=== PATIENT | female | born 1990 | race Caucasian/White ===

== ENCOUNTER 2019-07-02 13:48 | Emergency (ER) | payer BC, MEDICAID ==
[~2019-07-02] VITALS: Ht 160 cm; Wt 85.7 kg
[~2019-07-02 13:48] MED LIST: ACYC200O4 PO; ACYC400T PO; ALBU8.5H2 IH; AMOX250C PO; CEPH500C PO; FERR-57 PO; FLC150T PO; FLINTSTONE1 TAB.CHE4 PO; IBP600T1 PO; MEDR150D8 IM
--- NOTE | 2019-07-02 15:12 | Diagnostic Imaging Report ---
CLINICAL INDICATION: Patient with cough times approximately three days with bloody mucus yesterday. Exam: Chest x-ray PA and lateral views. Comparisons: None. Findings: Lungs/pleura: Lungs are clear. There is no pneumothorax. There is no pleural effusion. Mediastinum: Unremarkable. Pulmonary vasculature: Unremarkable. Heart: Unremarkable. Bones/extrathoracic soft tissue: Unremarkable. Impression: There is no radiographic evidence of acute cardiopulmonary process. Dictated by: Dictated on workstation # [id number]
--- NOTE | 2019-07-02 15:47 | ED Cough/URI ---
General Chief Complaint: Cough/Cold/Flu Symptoms Stated Complaint: COUGH,CHEST TIGHT Nursing Triage Note: Patient ambulatory to ER triage room with complaint of cough x 3 days. Patient states she coughed up small amount of blood yesterday. She is also complaining of a sore throat. She has not had a fever. Sepsis Screen: No Definite Risk Source: patient Exam Limitations: no limitations History of Present Illness Date Seen by Provider: Jul 02, 2019 Time Seen by Provider: 15:47 Initial Comments 29-year-old female patient presents with complaints of 3 day onset of cough. Patient reports coughing up a small amount of blood on her sputum yesterday 1. Does complain of a sore throat. Denies any fevers, but has had intermittent chills. Timing/Duration: other (3 day onset) Severity/Quality: sputum, blood streaked sputum (1 episode yesterday) Prior Episodes/Possible Cause: no prior episodes Modifying Factors: Improves With Coughing Allergies and Home Medications Allergies Coded Allergies: codeine (Unverified Allergy, Unknown, 07/08/11) Home Medications Ferrous Sulfate 325 Mg Tablet, 325 MG PO TID, (Reported) Ibuprofen 600 Mg Tab, 600 MG PO Q6H Prescribed by: YOEL CATALAN on 07/26/14 0607 Medroxyprogesterone Acet 150 Mg/Ml Disp.syrin, 150 MG IM Q 90DAYS, (Reported) Multivitamins W-Iron 1 Tab.chew Tab.chew, 2 TAB.CHEW PO DAILY, (Reported) Patient Home Medication List Home Medication List Reviewed: Yes Review of Systems Review of Systems Constitutional: chills; No diaphoresis, No dizziness, No fever; malaise EENTM: see HPI, hoarseness, nose congestion (green nasal drainage), throat pain; No ear discharge, No ear pain, No epistaxis, No throat swelling Respiratory: see HPI, cough; No dyspnea on exertion; phlegm; No short of breath, No stridor, No wheezing Cardiovascular: no symptoms reported Gastrointestinal: no symptoms reported Genitourinary: no symptoms reported Musculoskeletal: no symptoms reported Skin: no symptoms reported Psychiatric/Neurological: No Symptoms Reported All Other Systems Reviewed Negative Unless Noted: Yes (Negative excepted noted.) Past Ataekjf-Qcjvnc-Dcaaon Hx Past Med/Social Hx: Reviewed Nursing Past Med/Soc Hx Patient Social History Alcohol Use: Denies Use Recreational Drug Use: No Smoking Status: Never a Smoker 2nd Hand Smoke Exposure: No Recent Foreign Travel: No Contact w/Someone Who Travel: No Recent Infectious Disease Expo: No Recent Hopitalizations: No Physical Abuse: No Sexual Abuse: No Mistreated: No Fear: No Immunizations Up To Date Tetanus Booster (TDap): Unknown PED Vaccines UTD: Yes Date of Influenza Vaccine: Jun 08, 2014 Seasonal Allergies Seasonal Allergies: No Past Medical History Surgeries: No Respiratory: No Cardiac: No Neurological: No Reproductive Disorders: Yes Female Reproductive Disorders: Denies Sexually Transmitted Disease: Yes (herpes) HIV/AIDS: No Gastrointestinal: No Musculoskeletal: No Endocrine: No Cancer: No Psychosocial: No Integumentary: No Blood Disorders: No Family Medical History Reviewed Nursing Family Hx Patient reports no known family medical history. No Pertinent Family Hx Physical Exam Vital Signs - First Documented 07/02/19 14:06 Temp 36.9 Pulse 83 Resp 16 B/P (MAP) 112/71 (85) Pulse Ox 99 O2 Delivery Room Air Capillary Refill : Less Than 3 Seconds Height: 5'3" Weight: 159lbs. 6.0oz. 72.438503iz; 33.00 BMI Method: General Appearance: WD/WN, no apparent distress HEENT: PERRL/EOMI, TMs normal, pharyngeal erythema; No tonsillar exudate; other ( slight tonsillar enlargement. Positive nasal congestion. Positive hoarseness.) Neck: non-tender, full range of motion, supple, lymphadenopathy (R), lymphadenopathy (L) Respiratory: lungs clear, normal breath sounds, no respiratory distress, no accessory muscle use Cardiovascular: normal peripheral pulses, regular rate, rhythm, no edema, no murmur Extremities: no pedal edema, no calf tenderness, normal capillary refill Neurologic/Psychiatric: alert, normal mood/affect, oriented x 3 Skin: normal color, warm/dry Progress/Results/Core Measures Suspected Sepsis Recent Fever Within 48 Hours: No Infection Criteria Present: None New/Unexplained Altered Menta: No Sepsis Screen: No Definite Risk SIRS Temperature: Pulse: 83 Respiratory Rate: 16 Blood Pressure 112 /71 Mean: 85 Results/Orders My Orders Orders - JOSE IRBY PA Chest Pa/Lat (2 View) (07/02/19 14:50) Vital Signs/I&O 07/02/19 14:06 Temp 36.9 Pulse 83 Resp 16 B/P (MAP) 112/71 (85) Pulse Ox 99 O2 Delivery Room Air Capillary Refill : Less Than 3 Seconds Blood Pressure Mean: 85 POS Diagnostic Imaging Diagonstic Imaging: Xray Plain Films/CT/US/NM/MRI: chest Comments CHEST PA/LAT (2 VIEW) CLINICAL INDICATION: Patient with cough times approximately three days with bloody mucus yesterday. Exam: Chest x-ray PA and lateral views. Comparisons: None. Findings: Lungs/pleura: Lungs are clear. There is no pneumothorax. There is no pleural effusion. Mediastinum: Unremarkable. Pulmonary vasculature: Unremarkable. Heart: Unremarkable. Bones/extrathoracic soft tissue: Unremarkable. Impression: There is no radiographic evidence of acute cardiopulmonary process. Dictated on workstation # [id number] Reviewed: Reviewed by Me (radiology report reviewed by me) Departure Communication (Admissions) Patient seen and evaluated. Plan for discharge to home. Patient does request liquid antibiotics due to a history of difficulty taking pills since she was a child. Impression Primary Impression: Upper respiratory infection Qualified Codes: J06.9 - Acute upper respiratory infection, unspecified Disposition: HOME, SELF-CARE Condition: Improved Departure-Patient Inst. Decision time for Depature: 16:03 Referrals: DANYEL MARRERO APRN (PCP/Family) Primary Care Physician Patient Instructions: Bacterial Upper Respiratory Infection, Adult (DC) Add. Discharge Instructions: All discharge instructions reviewed with patient and/or family. Voiced understanding. Medications as instructed. Tylenol and ibuprofen eonf-yic-fbjvwvd as directed by the account support manager for pain. Drink plenty of fluids. Jext-uug-afwzrnc throat lozenges and sprays as needed for throat pain. Afrin nasal spray and saline nasal spray dcmj-ere-lbnctnq as needed for nasal congestion. Follow-up with your family practitioner if no improvement in symptoms. Return to the emergency department for worsened symptoms or any other concerns. Scripts Amoxicillin (Amoxicillin) 400 Mg/5 Ml Susp.recon 1000 MG PO BID for 7 Days, #120 ML 0 Refills Prov: JOSE IRBY 07/02/19 JOSE IRBY Jul 02, 2019 15:47 POS
[2019-07-02] MEDS ORDERED: AMOX400S9 PO (16:05)
[2019-07-02 16:20] VITALS: BP 112/71
--- OUTSIDE RECORDS SUMMARY | 2019-07-27 20:23 | XMS REPORT ---
Author Author Ya Brown Organization [facility] Address [address] [place] [address] Care Team Providers Care Computer Engineering Technician Name Role Phone FAHAD Brown Unavailable PROBLEMS Type Condition ICD9-CM Code HBL45-OQ Code Onset Dates Condition S tatus SNOMED Code Problem History of anemia Z86.2 Active 27 3175037 Problem Herpes simplex vulvovaginitis A60.04 Active 20927195 Problem Irregular menses N92.6 Active 801 95906 ALLERGIES No Information ENCOUNTERS Encounter Location Date Diagnosis [facility] IN [facility] [id number] [place] [address] Aug, Strep throat J02.0 [facility] [id number] [place] [address] 14 Mar, 2018 Left wrist pain M25.532 [facility] [id number] [place] [address] 06 Mar, 2018 Acute nasopharyngitis (commo n cold) J00 ; Post-nasal drip R09.82 and Sore throat J02.9 [facility] [id number] [place] [address] Jan, [facility] [id number] [place] [address] Dec, [place] [address] [address] Dec, History of anemia Z86.2 [facility] [address] [id number] [address] [place] [address] Dec, Irregular menses N92.6 and S creening examination for sexually transmitted disease Z11.3 [place] [id number] [place] [address] Dec, Irregular menses N92.6 ; His tory of anemia Z86.2 and Screening examination for sexually transmitted disease Z11.3 [facility] [place] [id number] [place] [address] November, Herpes simplex vulvovaginiti s A60.04 [place] [address] [address] November, [facility] [place] [address] [address] 07 Mar, 2017 Knee strain, right, initial encounter S86.911A [place] [address] [address] 14 Aug, 2016 Pelvic pain R10.2 [place] [address] [address] 08 Aug, 2016 Dyspareunia in female N94.10 and control counseling Z30.09 [facility] [place] [address] [address] Jun, Gastroenteritis K52.9 and Ac nora effusion of both middle ears H65.193 [place] [address] [address] Apr, Swelling of pharynx J39.2 [place] [address] [address] Jan, [place] [address] [address] Jan, [place] [address] [address] Dec, Routine gynecological examin ation Z01.419 ; Encounter for counseling regarding contraception Z30.9 and Encounter for initial prescription of contraceptive pills Z30.011 [facility] [address] [id number] [address] [place] [address], [place] [address] November, Contraceptive management V25 .9 [facility] [address] [id number] [address] [place] [address], [place] [address] 14 Oct, 2014 [facility] [address] [id number] [address] [place] [address], [place] [address] Oct, [facility] [address] [id number] [address] [place] [address], [place] [address] Aug, [facility] [address] [id number] [address] [place] [address], [place] [address] Aug, [facility] [address] [id number] [address] [place] [address], [place] [address] Jun, [facility] [address] [id number] [address] [place] [address], [place] [address] Jun, [facility] [address] [id number] [address] [place] [address], [place] [address] Jun, [facility] [address] [id number] [address] [place] [address], [place] [address] Jun, [facility] [address] [id number] [address] [place] [address], [place] [address] Jun, [facility] [address] [id number] [address] [place] [address], [place] [address] 15 Jun, 2014 [facility] [address] [id number] [address] [place] [address], [place] [address] Jun, [facility] [address] [id number] [address] [place] [address], [place] [address] Jun, [facility] [address] [id number] [address] [place] [address], [place] [address] Jun, [facility] [address] [id number] [address] [place] [address], [place] [address] 08 Jun, 2014 [facility] [address] [id number] [address] [place] [address] Jun, [facility] [address] [id number] [address] [place] [address], [place] [address] May, [facility] [address] [id number] [address] [place] [address], [place] [address] May, [facility] [address] [id number] [address] [place] [address], [place] [address] May, [facility] [address] [id number] [address] [place] [address], [place] [address] May, [facility] [address] [id number] [address] [place] [address], [place] [address] Apr, [facility] [address] [id number] [address] [place] [address], [place] [address] Apr, [facility] [address] [id number] [address] [place] [address], [place] [address] Apr, [facility] [address] [id number] [address] [place] [address], [place] [address] Apr, [facility] [address] [id number] [address] [place] [address], [place] [address] Apr, [facility] [address] [id number] [address] [place] [address], [place] [address] Apr, [facility] [address] [id number] [address] [place] [address], [place] [address] Apr, [facility] [address] [id number] [address] [place] [address] Apr, [facility] [address] [id number] [address] [place] [address], [place] [address] Mar, [facility] [address] [id number] [address] [place] [address], [place] [address] Mar, [facility] [address] [id number] [address] [place] [address], [place] [address] Feb, [facility] [address] [id number] [address] [place] [address], [place] [address] Feb, [facility] [address] [id number] [facility] [place] [address] Jan, [facility] [address] [id number] [address] [place] [address], [place] [address] Jan, [facility] [address] [id number] [address] [place] [address], [place] [address] Jan, [facility] [address] [id number] [address] [place] [address], [place] [address] Jan, [facility] [address] [id number] [address] [place] [address], [place] [address] Jan, [facility] [address] [id number] [address] [place] [address], [place] [address] Dec, [facility] [address] [id number] [address] [place] [address], [place] [address] Dec, [facility] [address] [id number] [address] [place] [address], [place] [address] Dec, [facility] [address] [id number] [address] [place] [address], [place] [address] Dec, [facility] [address] [id number] [address] [place] [address], [place] [address] Dec, [facility] [address] [id number] [address] [place] [address], [place] [address] Dec, [facility] [address] [id number] [address] [place] [address], [place] [address] Dec, [facility] [address] [id number] [address] [place] [address], [place] [address] Dec, [facility] [address] [id number] [address] [place] [address], [place] [address] Dec, [facility] [address] [id number] [address] [place] [address], [place] [address] November, [facility] [address] [id number] [facility] [place] [address] November, [facility] [address] [id number] [address] [place] [address], [place] [address] November, [facility] [address] [id number] [address] [place] [address], [place] [address] November, [facility] [address] [id number] [address] [place] [address], [place] [address] November, [facility] [address] [id number] [address] [place] [address], [place] [address] November, [facility] [address] [id number] [address] [place] [address], [place] [address] November, [facility] [address] [id number] [address] [place] [address], [place] [address] November, [facility] [address] [id number] [address] [place] [address], [place] [address] November, [facility] [address] [id number] [address] [place] [address], [place] [address] November, [facility] [address] [id number] [address] [place] [address], [place] [address] Aug, [facility] [address] [id number] [address] [place] [address], [place] [address] Aug, [facility] [address] [id number] [address] [place] [address], [place] [address] Mar, [facility] [address] [id number] [address] [place] [address], [place] [address] Feb, [facility] [address] [id number] [address] [place] [address], [place] [address] Jan, [facility] [address] [id number] [address] [place] [address], [place] [address] Jan, [facility] [address] [id number] [address] [place] [address], [place] [address] Jan, [facility] [address] [id number] [address] [place] [address], [place] [address] Jan, [facility] [address] [id number] [address] [place] [address], [place] [address] Dec, [facility] [address] [id number] [address] [place] [address], [place] [address] Oct, [facility] [address] [id number] [address] [place] [address], [place] [address] 28 Aug, 2012 [facility] [address] [id number] [address] [place] [address], [place] [address] 27 Aug, 2012 [facility] [address] [id number] [address] [place] [address], [place] [address] Aug, [facility] [address] [id number] [address] [place] [address], [place] [address] Aug, [facility] [address] [id number] [address] [place] [address], [place] [address] 18 Aug, 2012 [facility] [address] [id number] [address] [place] [address], [place] [address] 15 Aug, 2012 [facility] [address] [id number] [address] [place] [address], [place] [address] 14 Aug, 2012 [facility] [address] [id number] [address] [place] [address], [place] [address] 12 Aug, 2012 [facility] [address] [id number] [address] [place] [address], [place] [address] Sep, [facility] [address] [id number] [address] [place] [address], [place] [address] Jul, [facility] [address] [id number] [address] [place] [address], [place] [address] Jul, [facility] [address] [id number] [address] [place] [address], [place] [address] Jun, [facility] [address] [id number] [address] [place] [address] Jun, [facility] [address] [id number] [address] [place] [address] Jun, [facility] [address] [id number] [address] [place] [address] May, [facility] [address] [id number] [address] [place] [address] May, [facility] [address] [id number] [address] [place] [address] May, [facility] [address] [id number] [address] [place] [address] Apr, [facility] [address] [id number] [address] [place] [address] Apr, [facility] [address] [id number] [address] [place] [address] Apr, [facility] [address] [id number] [address] [place] [address] Feb, [facility] [address] [id number] [address] [place] [address] Jan, [facility] [address] [id number] [address] [place] [address] Dec, IMMUNIZATIONS No Known Immunizations SOCIAL HISTORY Never Assessed REASON FOR VISIT PLAN OF CARE VITAL SIGNS Height 64 in 2014-08-28 Weight 155.31 lbs 2014-08-28 Temperature 97 degrees Fahrenheit 2014-08-28 Heart Rate 82 bpm 2014-08-28 Respiratory Rate 18 2014-08-28 Blood pressure systolic 110 mmHg 2014-08-28 Blood pressure diastolic 70 mmHg 2014-08-28 MEDICATIONS No Known Medications RESULTS No Results PROCEDURES Procedure Date Ordered Result Body Site THER/PROPH/DIAG INJ, SC/IM Aug 28, 2014 Medroxyprogesterone inj Aug 28, 2014 URINE TEST Aug 28, 2014 INSTRUCTIONS MEDICATIONS ADMINISTERED No Known Medications MEDICAL (GENERAL) HISTORY Type Description Date Medical History herpes Surgical History No Surgical history information Hospitalization History Childbirth only
--- OUTSIDE RECORDS SUMMARY | 2019-07-27 20:23 | XMS REPORT ---
Author Author Ya MAURER Organization [facility] Address [address] [place] [address] Care Team Providers Care Energy Manager Name Role Phone KIA MAURER Unavailable PROBLEMS Type Condition ICD9-CM Code [id number] Code Onset Dates Condition S tatus SNOMED Code Problem History of anemia Z86.2 Active 27 6443761 Problem Herpes simplex vulvovaginitis A60.04 Active 76352945 Problem Irregular menses N92.6 Active 801 06137 ALLERGIES No Information ENCOUNTERS Encounter Location Date Diagnosis [facility] [id number] [place] [address] Aug, Strep throat J02.0 [facility] [id number] [place] [address] 14 Mar, 2018 Left wrist pain M25.532 [facility] [id number] [place] [address] 06 Mar, 2018 Acute nasopharyngitis (commo n cold) J00 ; Post-nasal drip R09.82 and Sore throat J02.9 [facility] [id number] [place] [address] Jan, [facility] [address] [id number] [address] [place] [address] Dec, [place] [id number] [place] [address] Dec, History of anemia Z86.2 [facility] [address] [id number] [address] [place] [address] Dec, Irregular menses N92.6 and S creening examination for sexually transmitted disease Z11.3 [place] [id number] [place] [address] Dec, Irregular menses N92.6 ; His tory of anemia Z86.2 and Screening examination for sexually transmitted disease Z11.3 [facility] [place] [id number] [place] [address] November, Herpes simplex vulvovaginiti s A60.04 [place] [address] [address] November, [facility] [place] [address] [address] 07 Mar, 2017 Knee strain, right, initial encounter S86.911A [place] [address] [address] 14 Aug, 2016 Pelvic pain R10.2 [place] [address] [address] 08 Aug, 2016 Dyspareunia in female N94.10 and control counseling Z30.09 [facility] IN [place] [address] [address] Jun, Gastroenteritis K52.9 and Ac chickaloon effusion of both middle ears H65.193 [place] [address] [address] Apr, Swelling of pharynx J39.2 [place] [address] [id number] [place] [address] Jan, [place] [address] [address] Jan, [place] [address] [address] Dec, Routine gynecological examin ation Z01.419 ; Encounter for counseling regarding contraception Z30.9 and Encounter for initial prescription of contraceptive pills Z30.011 [facility] [address] [id number] [address] [place] [address], [place] [address] November, Contraceptive management V25 .9 [facility] [address] [id number] [address] [place] [address], [place] [address] 14 Oct, 2014 [facility] [address] [id number] [address] [place] [address], [place] [address] Oct, [facility] [address] [id number] [address] [place] [address], [place] [address] Aug, [facility] [address] [id number] [address] [place] [address], [place] [address] Aug, [facility] [address] [id number] [address] [place] [address], [place] [address] Jun, [facility] [address] [id number] [address] [place] [address], [place] [address] Jun, [facility] [address] [id number] [address] [place] [address], [place] [address] Jun, [facility] [address] [id number] [address] [place] [address], [place] [address] Jun, [facility] [address] [id number] [address] [place] [address], [place] [address] Jun, [facility] [address] [id number] [address] [place] [address], [place] [address] 15 Jun, 2014 [facility] [address] [id number] [address] [place] [address], [place] [address] 15 Jun, 2014 [facility] [address] [id number] [address] [place] [address], [place] [address] 15 Jun, 2014 [facility] [address] [id number] [address] [place] [address], [place] [address] 10 Jun, 2014 [facility] [address] [id number] [address] [place] [phone] 08 Jun, 2014 [facility] [address] [id number] [address] [place] [id number] Jun, [facility] [address] [id number] [address] [place] [address], [place] [address] May, [facility] [address] [id number] [address] [place] [address], [place] [address] May, [facility] [address] [id number] [address] [place] [address], [place] [address] May, [facility] [address] [id number] [address] [place] [address], [place] [address] May, [facility] [address] [id number] [address] [place] [address], [place] [address] Apr, [facility] [address] [id number] [address] [place] [address], [place] [address] Apr, [facility] [address] [id number] [address] [place] [address], [place] [address] Apr, [facility] [address] [id number] [address] [place] [address], [place] [address] Apr, [facility] [address] [id number] [address] [place] [address], [place] [address] Apr, [facility] [address] [id number] [address] [place] [address], [place] [address] Apr, [facility] [address] [id number] [address] [place] [address], [place] [address] Apr, [facility] [address] [id number] [address] [place] [address] Apr, [facility] [address] [id number] [address] [place] [address], [place] [address] Mar, [facility] [address] [id number] [address] [place] [address], [place] [address] Mar, [facility] [address] [id number] [address] [place] [address], [place] [address] Feb, [facility] [address] [id number] [address] [place] [address], [place] [address] Feb, [facility] [address] [id number] [address] [place] [address], [place] [address] Jan, [facility] [address] [id number] [address] [place] [address], [place] [address] Jan, [facility] [address] [id number] [address] [place] [address], [place] [address] Jan, [facility] [address] [id number] [address] [place] [address], [place] [address] Jan, [facility] [address] [id number] [address] [place] [address], [place] [address] Jan, [facility] [address] [id number] [address] [place] [address], [place] [address] Dec, [facility] [address] [id number] [address] [place] [address], [place] [address] Dec, [facility] [address] [id number] [address] [place] [address], [place] [address] Dec, [facility] [address] [id number] [address] [place] [address], [place] [address] Dec, [facility] [address] [id number] [address] [place] [address], [place] [address] Dec, [facility] [address] [id number] [address] [place] [address], [place] [address] Dec, [facility] [address] [id number] [address] [place] [address], [place] [address] Dec, [facility] [address] [id number] [address] [place] [address], [place] [address] Dec, [facility] [address] [id number] [address] [place] [address], [place] [address] Dec, [facility] [address] [id number] [address] [place] [address], [place] [address] November, [facility] [address] [id number] [address] [place] [address], [place] [address] November, [facility] [address] [id number] [address] [place] [address], [place] [address] November, [facility] [address] [id number] [address] [place] [address], [place] [address] November, [facility] [address] [id number] [address] [place] [address], [place] [address] November, [facility] [address] [id number] [address] [place] [address], [place] [address] November, [facility] [address] [id number] [address] [place] [address], [place] [address] November, [facility] [address] [id number] [address] [place] [address], [place] [address] November, [facility] [address] [id number] [address] [place] [address], [place] [address] November, [facility] [address] [id number] [address] [place] [address], [place] [address] November, [facility] [address] [id number] [address] [place] [address], [place] [address] Aug, [facility] [address] [id number] [address] [place] [address], [place] [address] Aug, [facility] [address] [id number] [address] [place] [address], [place] [address] Mar, [facility] [address] [id number] [address] [place] [address], [place] [address] Feb, [facility] [address] [id number] [address] [place] [address], [place] [address] Jan, [facility] [address] [id number] [address] [place] [address], [place] [address] Jan, [facility] [address] [id number] [address] [place] [address], [place] [address] Jan, [facility] [address] [id number] [address] [place] [address], [place] [address] Jan, [facility] [address] [id number] [address] [place] [address], [place] [address] Dec, [facility] [address] [id number] [address] [place] [address], [place] [address] Oct, [facility] [address] [id number] [address] [place] [address], [place] [address] 28 Aug, 2012 [facility] [address] [id number] [address] [place] [address], [place] [address] 27 Aug, 2012 [facility] [address] [id number] [address] [place] [address], [place] [address] Aug, [facility] [address] [id number] [address] [place] [address], [place] [address] Aug, [facility] [address] [id number] [address] [place] [address], [place] [address] 18 Aug, 2012 [facility] [address] [id number] [address] [place] [address], [place] [address] 15 Aug, 2012 [facility] [address] [id number] [address] [place] [address], [place] [address] 14 Aug, 2012 [facility] [address] [id number] [address] [place] [address], [place] [address] 12 Aug, 2012 [facility] [address] [id number] [address] [place] [address], [place] [address] Sep, [facility] [address] [id number] [address] [place] [address], [place] [address] Jul, [facility] [address] [id number] [address] [place] [address], [place] [address] Jul, [facility] [address] [id number] [address] [place] [address], [place] [address] Jun, [facility] [address] [id number] [address] [place] [address] Jun, [facility] [address] [id number] [address] [place] [address] Jun, [facility] [address] [id number] [address] [place] [address] May, [facility] [address] [id number] [address] [place] [address] May, [facility] [address] [id number] [address] [place] [address] May, [facility] [address] [id number] [address] [place] [address] Apr, [facility] [address] [id number] [address] [place] [address] Apr, [facility] [address] [id number] [address] [place] [address] Apr, [facility] [address] [id number] [address] [place] [address] Feb, [facility] [address] [id number] [address] [place] [address] Jan, [facility] [address] [id number] [address] [place] [address] Dec, IMMUNIZATIONS No Known Immunizations SOCIAL HISTORY Never Assessed REASON FOR VISIT PLAN OF CARE VITAL SIGNS Height 64 in 2014-05-09 Weight 154.25 lbs 2014-05-09 Temperature 97.6 degrees Fahrenheit 2014-05-09 Heart Rate 72 bpm 2014-05-09 Respiratory Rate 16 2014-05-09 Blood pressure systolic 104 mmHg 2014-05-09 Blood pressure diastolic 62 mmHg 2014-05-09 MEDICATIONS No Known Medications RESULTS No Results PROCEDURES Procedure Date Ordered Result Body Site Rho d immune globulin inj May 09, 2014 URINE-NO MICRO May 09, 2014 INSTRUCTIONS MEDICATIONS ADMINISTERED No Known Medications MEDICAL (GENERAL) HISTORY Type Description Date Medical History herpes Surgical History No Surgical history information Hospitalization History Childbirth only
--- OUTSIDE RECORDS SUMMARY | 2019-07-27 20:23 | XMS REPORT ---
Author Author Ya MAURER Organization [facility] Address [address] [place] [address] Care Team Providers Care Market Research Intern Name Role Phone KIA MAURER Unavailable PROBLEMS Type Condition ICD9-CM Code NYI09-NS Code Onset Dates Condition S tatus SNOMED Code Problem History of anemia Z86.2 Active 27 1053872 Problem Herpes simplex vulvovaginitis A60.04 Active 19078076 Problem Irregular menses N92.6 Active 801 29186 ALLERGIES No Information ENCOUNTERS Encounter Location Date Diagnosis [facility] [address] [id number] [address] [place] [phone] Aug, Strep throat J02.0 [facility] [address] [id number] [place] [id number] 14 Mar, 2018 Left wrist pain M25.532 [facility] [id number] [place] [phone] 06 Mar, 2018 Acute nasopharyngitis (commo n cold) J00 ; Post-nasal drip R09.82 and Sore throat J02.9 [facility] [id number] [place] [address] Jan, [facility] [address] [id number] [address] [place] [phone] Dec, [place] [id number] [place] [phone] Dec, History of anemia Z86.2 [facility] [address] [id number] [address] [place] [phone] Dec, Irregular menses N92.6 and S creening examination for sexually transmitted disease Z11.3 [place] [id number] [place] [phone] Dec, Irregular menses N92.6 ; His tory of anemia Z86.2 and Screening examination for sexually transmitted disease Z11.3 [facility] [place] [id number] [place] [phone] November, Herpes simplex vulvovaginiti s A60.04 [place] [address] [address] November, [facility] [place] [address] [address] 07 Mar, 2017 Knee strain, right, initial encounter S86.911A [place] [address] [address] 14 Aug, 2016 Pelvic pain R10.2 [place] [address] [address] 08 Aug, 2016 Dyspareunia in female N94.10 and control counseling Z30.09 [facility] [place] [address] [address] Jun, Gastroenteritis K52.9 and Ac newtok effusion of both middle ears H65.193 [place] [address] [address] Apr, Swelling of pharynx J39.2 [place] [id number] [place] [phone] Jan, [place] [address] [address] Jan, [place] [address] [address] Dec, Routine gynecological examin ation Z01.419 ; Encounter for counseling regarding contraception Z30.9 and Encounter for initial prescription of contraceptive pills Z30.011 [facility] [address] [id number] [address] [place] [address], [place] [address] November, Contraceptive management V25 .[address] [facility] [address] [id number] [address] [place] [address], [place] [address] 14 Oct, 2014 [facility] [address] [id number] [address] [place] [address], [place] [address] Oct, [facility] [address] [id number] [address] [place] [address], [place] [address] Aug, [facility] [address] [id number] [address] [place] [address], [place] [address] Aug, [facility] [address] [id number] [address] [place] [address], [place] [address] Jun, [facility] [address] [id number] [address] [place] [address], [place] [address] Jun, [facility] [address] [id number] [address] [place] [address], [place] [address] Jun, [facility] [address] [id number] [address] [place] [address], [place] [address] Jun, [facility] [address] [id number] [address] [place] [address], [place] [address] Jun, [facility] [address] [id number] [address] [place] [address], [place] [address] 15 Jun, 2014 [facility] [address] [id number] [address] [place] [address], [place] [address] 15 Jun, 2014 [facility] [address] [id number] [address] [place] [address], [place] [address] 15 Jun, 2014 [facility] [address] [id number] [address] [place] [address], [place] [address] 10 Jun, 2014 [facility] [address] [id number] [address] [place] [phone] 08 Jun, 2014 [facility] [address] [id number] [address] [place] [phone] Jun, [facility] [address] [id number] [address] [place] [address], [place] [address] May, [facility] [address] [id number] [address] [place] [address], [place] [address] May, [facility] [address] [id number] [address] [place] [address], [place] [address] May, [facility] [address] [id number] [address] [place] [address], [place] [address] May, [facility] [address] [id number] [address] [place] [address], [place] [address] Apr, [facility] [address] [id number] [address] [place] [address], [place] [address] Apr, [facility] [address] [id number] [address] [place] [address], [place] [address] Apr, [facility] [address] [id number] [address] [place] [address], [place] [address] Apr, [facility] [address] [id number] [address] [place] [address], [place] [address] Apr, [facility] [address] [id number] [address] [place] [address], [place] [address] Apr, [facility] [address] [id number] [address] [place] [address], [place] [address] Apr, [facility] [address] [id number] [address] [place] [phone] Apr, [facility] [address] [id number] [address] [place] [address], [place] [address] Mar, [facility] [address] [id number] [address] [place] [address], [place] [address] Mar, [facility] [address] [id number] [address] [place] [address], [place] [address] Feb, [facility] [address] [id number] [address] [place] [address], [place] [address] Feb, [facility] [address] [id number] [address] [place] [address], [place] [address] Jan, [facility] [address] [id number] [address] [place] [address], [place] [address] Jan, [facility] [address] [id number] [address] [place] [address], [place] [address] Jan, [facility] [address] [id number] [address] [place] [address], [place] [address] Jan, [facility] [address] [id number] [address] [place] [address], [place] [address] Jan, [facility] [address] [id number] [address] [place] [address], [place] [address] Dec, [facility] [address] [id number] [address] [place] [address], [place] [address] Dec, [facility] [address] [id number] [address] [place] [address], [place] [address] Dec, [facility] [address] [id number] [address] [place] [address], [place] [address] Dec, [facility] [address] [id number] [address] [place] [address], [place] [address] Dec, [facility] [address] [id number] [address] [place] [address], [place] [address] Dec, [facility] [address] [id number] [address] [place] [address], [place] [address] Dec, [facility] [address] [id number] [address] [place] [address], [place] [address] Dec, [facility] [address] [id number] [address] [place] [address], [place] [address] Dec, [facility] [address] [id number] [address] [place] [address], [place] [address] November, [facility] [address] [id number] [address] [place] [address], [place] [address] November, [facility] [address] [id number] [address] [place] [address], [place] [address] November, [facility] [address] [id number] [address] [place] [address], [place] [address] November, [facility] [address] [id number] [address] [place] [address], [place] [address] November, [facility] [address] [id number] [address] [place] [address], [place] [address] November, [facility] [address] [id number] [address] [place] [address], [place] [address] November, [facility] [address] [id number] [address] [place] [address], [place] [address] November, [facility] [address] [id number] [address] [place] [address], [place] [address] November, [facility] [address] [id number] [address] [place] [address], [place] [address] November, [facility] [address] [id number] [address] [place] [address], [place] [address] Aug, [facility] [address] [id number] [address] [place] [address], [place] [address] Aug, [facility] [address] [id number] [address] [place] [address], [place] [address] Mar, [facility] [address] [id number] [address] [place] [address], [place] [address] Feb, [facility] [address] [id number] [address] [place] [address], [place] [address] Jan, [facility] [address] [id number] [address] [place] [address], [place] [address] Jan, [facility] [address] [id number] [address] [place] [address], [place] [address] Jan, [facility] [address] [id number] [address] [place] [address], [place] [address] Jan, [facility] [address] [id number] [address] [place] [address], [place] [address] Dec, [facility] [address] [id number] [address] [place] [address], [place] [address] Oct, [facility] [address] [id number] [address] [place] [address], [place] [address] 28 Aug, [address] [facility] [address] [id number] [address] [place] [address], [place] [address] 27 Aug, [address] [facility] [address] [id number] [address] [place] [address], [place] [address] Aug, [facility] [address] [id number] [address] [place] [address], [place] [address] Aug, [facility] [address] [id number] [address] [place] [address], [place] [address] 18 Aug, 2012 [facility] [address] [id number] [address] [place] [address], [place] [address] 15 Aug, 2012 [facility] [address] [id number] [address] [place] [address], [place] [address] 14 Aug, 2012 [facility] [address] [id number] [address] [place] [address], [place] [address] 12 Aug, 2012 [facility] [address] [id number] [address] [place] [address], [place] [address] Sep, [facility] [address] [id number] [address] [place] [address], [place] [address] Jul, [facility] [address] [id number] [address] [place] [address], [place] [address] Jul, [facility] [address] [id number] [address] [place] [address], [place] [address] Jun, [facility] [address] [id number] [address] [place] [address] Jun, [facility] [address] [id number] [address] [place] [address] Jun, [facility] [address] [id number] [address] [place] [address] May, [facility] [address] [id number] [address] [place] [address] May, [facility] [address] [id number] [address] [place] [phone] May, [facility] [address] [id number] [address] [place] [id number] Apr, [facility] [address] [id number] [address] [place] [address] Apr, [facility] [address] [id number] [address] [place] [phone] Apr, [facility] [address] [id number] [address] [place] [id number] Feb, [facility] [address] [id number] [address] [place] [address] Jan, [facility] [address] [id number] [address] [place] [address] Dec, IMMUNIZATIONS No Known Immunizations SOCIAL HISTORY Never Assessed REASON FOR VISIT PLAN OF CARE VITAL SIGNS MEDICATIONS No Known Medications RESULTS No Results PROCEDURES No Known procedures INSTRUCTIONS MEDICATIONS ADMINISTERED No Known Medications MEDICAL (GENERAL) HISTORY Type Description Date Medical History herpes Surgical History No Surgical history information Hospitalization History Childbirth only
--- OUTSIDE RECORDS SUMMARY | 2019-07-27 20:23 | XMS REPORT ---
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 Name Role Phone FAHAD Brown Unavailable PROBLEMS Type Condition ICD9-CM Code BNC17-RR Code Onset Dates Condition S tatus SNOMED Code Problem History of anemia Z86.2 Active 27 [id number] Problem Herpes simplex vulvovaginitis A60.04 Active 46893679 Problem Irregular menses N92.6 Active 801 85065 ALLERGIES No Information ENCOUNTERS Encounter Location Date Diagnosis [facility] [address] [place] [id number] [address] [place] [id number] Apr, [facility] [address] [id number] [address] [place] [phone] Aug, Strep throat J02.0 [facility] [address] [id number] [address] [place] [id number] 14 Mar, 2018 Left wrist pain M25.532 [facility] [address] [id number] [address] [place] [id number] 06 Mar, 2018 Acute nasopharyngitis (commo n cold) J00 ; Post-nasal drip R09.82 and Sore throat J02.9 [facility] [address] [facility] [id number] [address] [place] [phone] Jan, [facility] [id number] [address] [place] [phone] Dec, [facility] [address] [facility] [id number] [address] [place] [id number] Dec, History of anemia Z86.2 [facility] [id number] [address] [place] [id number] Dec, Irregular menses N92.6 and S creening examination for sexually transmitted disease Z11.3 [place] [address] [place] [id number] [place] [address] Dec, Irregular menses N92.6 ; His tory of anemia Z86.2 and Screening examination for sexually transmitted disease Z11.3 [facility] [place] [address] [address] November, Herpes simplex vulvovaginiti s A60.04 [place] [address] [address] [id number] [address] [place] [id number] November, [facility] [place] [address] [address] 07 Mar, 2017 Knee strain, right, initial encounter S86.911A [place] [address] [address] 14 Aug, 2016 Pelvic pain R10.2 [place] [address] [place] [id number] [address] [place] [id number] 08 Aug, 2016 Dyspareunia in female N94.10 and control counseling Z30.09 [facility] [place] [address] [id number] [address] [place] [id number] Jun, Gastroenteritis K52.9 and Ac tazlina effusion of both middle ears H65.193 [place] [address] [place] [id number] [address] [place] [phone] Apr, Swelling of pharynx J39.2 [place] [address] [place] [id number] [address] [place] [phone] Jan, [place] [address] [id number] Jan, [place] [address] [place] [id number] [address] [place] [id number] Dec, Routine gynecological examin ation Z01.419 ; Encounter for counseling regarding contraception Z30.9 and Encounter for initial prescription of contraceptive pills Z30.011 [facility] [address] [id number] [address] [place] [id number] November, Contraceptive management V25 .9 [facility] [address] [id number] [address] [place] [id number] 14 Oct, 2014 [facility] [address] [id number] [address] [place] [id number] Oct, [facility] [address] [id number] [address] [place] [phone] Aug, [facility] [address] [id number] [address] [place] [phone] Aug, [facility] [address] [id number] [address] [place] [phone] Jun, [facility] [address] [id number] [address] [place] [phone] Jun, [facility] [address] [id number] [address] [place] [phone] Jun, [facility] [address] [id number] [address] [place] [phone] Jun, [facility] [address] [id number] [address] [place] [id number] Jun, [facility] [address] [id number] [address] [place] [phone] Jun, [facility] [address] [id number] [address] [place] [id number] Jun, [facility] [address] [id number] [address] [place] [phone] Jun, [facility] [address] [id number] [address] [place] [phone] Jun, [facility] [address] [id number] [address] [place] [phone] Jun, [facility] [address] [id number] [address] [place] [address], [place] [address] Jun, [facility] [address] [id number] [address] [place] [phone] May, [facility] [address] [id number] [address] [place] [address], [place] [address] May, [facility] [address] [id number] [address] [place] [phone] May, [facility] [address] [id number] [address] [place] [address], [place] [address] May, [facility] [address] [id number] [address] [place] [address], [place] [address] Apr, [facility] [address] [id number] [address] [place] [address], [place] [address] Apr, [facility] [address] [id number] [address] [place] [address], [place] [address] Apr, [facility] [address] [id number] [address] [place] [address], [place] [address] Apr, [facility] [address] [id number] [address] [place] [address], [place] [address] Apr, [facility] [address] [id number] [address] [place] [phone] Apr, [facility] [address] [id number] [address] [place] [phone] Apr, [facility] [address] [id number] [address] [place] [address], [place] [address] Apr, [facility] [address] [id number] [address] [place] [address], [place] [address] Mar, [facility] [address] [id number] [address] [place] [address], [place] [address] 17 Mar, 2014 [facility] [address] [id number] [facility] [place] [address] Feb, [facility] [address] [id number] [address] [place] [address], [place] [address] Feb, [facility] [address] [id number] [address] [place] [address], [place] [address] Jan, [facility] [address] [id number] [address] [place] [address], [place] [address] Jan, [facility] [address] [id number] [address] [place] [address], [place] [address] Jan, [facility] [address] [id number] [address] [place] [address], [place] [address] Jan, [facility] [address] [id number] [address] [place] [address], [place] [address] Jan, [facility] [address] [id number] [address] [place] [address], [place] [address] Dec, [facility] [address] [id number] [address] [place] [address], [place] [address] Dec, [facility] [address] [id number] [address] [place] [address], [place] [address] Dec, [facility] [address] [id number] [address] [place] [address], [place] [address] Dec, [facility] [address] [id number] [address] [place] [address], [place] [address] Dec, [facility] [address] [id number] [address] [place] [address], [place] [address] Dec, [facility] [address] [id number] [address] [place] [address], [place] [address] Dec, [facility] [address] [id number] [address] [place] [address], [place] [address] Dec, [facility] [address] [id number] [address] [place] [address], [place] [address] Dec, [facility] [address] [id number] [facility] [place] [address] November, [facility] [address] [id number] [address] [place] [address], [place] [address] November, [facility] [address] [id number] [address] [place] [address], [place] [address] November, [facility] [address] [id number] [address] [place] [address], [place] [address] November, [facility] [address] [id number] [address] [place] [address], [place] [address] November, [facility] [address] [id number] [address] [place] [address], [place] [address] November, [facility] [address] [id number] [address] [place] [address], [place] [address] November, [facility] [address] [id number] [address] [place] [address], [place] [address] November, [facility] [address] [id number] [address] [place] [address], [place] [address] November, [facility] [address] [id number] [address] [place] [address], [place] [address] November, [facility] [address] [id number] [address] [place] [address], [place] [address] Aug, [facility] [address] [id number] [address] [place] [address], [place] [address] Aug, [facility] [address] [id number] [address] [place] [address], [place] [address] Mar, [facility] [address] [id number] [address] [place] [address], [place] [address] Feb, [facility] [address] [id number] [address] [place] [address], [place] [address] Jan, [facility] [address] [id number] [address] [place] [address], [place] [address] Jan, [facility] [address] [id number] [address] [place] [address], [place] [address] Jan, [facility] [address] [id number] [address] [place] [address], [place] [address] Jan, [facility] [address] [id number] [address] [place] [address], [place] [address] Dec, [facility] [address] [id number] [address] [place] [address], [place] [address] 15 Oct, 2012 [facility] [address] [id number] [address] [place] [address], [place] [address] 28 Aug, 2012 [facility] [address] [id number] [address] [place] [address], [place] [address] 27 Aug, 2012 [facility] [address] [id number] [address] [place] [address], [place] [address] 26 Aug, 2012 [facility] [address] [id number] [address] [place] [address], [place] [address] Aug, [facility] [address] [id number] [address] [place] [address], [place] [address] 18 Aug, 2012 [facility] [address] [id number] [address] [place] [address], [place] [address] 15 Aug, 2012 [facility] [address] [id number] [address] [place] [address], [place] [address] 14 Aug, 2012 [facility] [address] [id number] [address] [place] [address], [place] [address] 12 Aug, 2012 [facility] [address] [id number] [address] [place] [address], [place] [address] Sep, [facility] [address] [id number] [address] [place] [address], [place] [address] Jul, [facility] [address] [id number] [address] [place] [address], [place] [address] Jul, [facility] [address] [id number] [address] [place] [id number] Jun, [facility] [address] [id number] [address] [place] [id number] Jun, [facility] [address] [id number] [address] [place] [phone] Jun, [facility] [address] [id number] [address] [place] [id number] May, [facility] [address] [id number] [address] [place] [id number] May, [facility] [address] [id number] [address] [place] [address] May, [facility] [address] [id number] [address] [place] [address] Apr, [facility] [address] [id number] [address] [place] [id number] Apr, [facility] [address] [id number] [address] [place] [id number] Apr, [facility] [address] [id number] [address] [place] [id number] Feb, [facility] [address] [id number] [address] [place] [phone] Jan, [facility] [address] [id number] [address] [place] [id number] Dec, IMMUNIZATIONS No Known Immunizations SOCIAL HISTORY Never Assessed REASON FOR VISIT PLAN OF CARE VITAL SIGNS MEDICATIONS Unknown Medications RESULTS No Results PROCEDURES No Known procedures INSTRUCTIONS MEDICATIONS ADMINISTERED No Known Medications MEDICAL (GENERAL) HISTORY Type Description Date Medical History herpes Surgical History No Surgical history information Hospitalization History Childbirth only
--- OUTSIDE RECORDS SUMMARY | 2019-07-27 20:23 | XMS REPORT ---
Author Author Ya Pierre Doctor Organization [facility] Address Unknown Phone Unavailable Care Team Providers Care Any Commodity Buyer Name Role Phone Migration, Doctor Unavailable Unavailable PROBLEMS Type Condition ICD9-CM Code BMB06-EN Code Onset Dates Condition S tatus SNOMED Code Problem History of anemia Z86.2 Active 27 6172071 Problem Herpes simplex vulvovaginitis A60.04 Active 12416463 Problem Irregular menses N92.6 Active 801 39011 ALLERGIES No Information ENCOUNTERS Encounter Location Date Diagnosis [facility] [address] [id number] [place] [address] 19 Aug, 2018 Strep throat J02.0 [facility] [address] [id number] [address] [place] [address] 14 Mar, 2018 Left wrist pain M25.532 [facility] [id number] [place] [address] 06 Mar, 2018 Acute nasopharyngitis (commo n cold) J00 ; Post-nasal drip R09.82 and Sore throat J02.9 [facility] [address] [place] [address] Jan, [facility] [id number] [place] [address] Dec, [facility] [address] [place] [address] Dec, History of anemia Z86.2 [facility] [address] [id number] [address] [place] [address] Dec, Irregular menses N92.6 and S creening examination for sexually transmitted disease Z11.3 [facility] [id number] [place] [address] Dec, Irregular menses N92.6 ; His tory of anemia Z86.2 and Screening examination for sexually transmitted disease Z11.3 [facility] [place] [address] [address] November, Herpes simplex vulvovaginiti s A60.04 [place] [address] [address] November, [facility] [place] [address] [address] 07 Mar, 2017 Knee strain, right, initial encounter S86.911A [place] [address] [address] 14 Aug, 2016 Pelvic pain R10.2 [place] [address] [address] 08 Aug, 2016 Dyspareunia in female N94.10 and control counseling Z30.09 [facility] [place] [address] [address] 13 Jun, 2016 Gastroenteritis K52.9 and Ac [place] effusion of both middle ears H65.193 [place] [address] [address] Apr, Swelling of pharynx J39.2 [place] [address] [address] Jan, [place] [address] [address] Jan, [place] [address] [address] Dec, Routine gynecological examin ation Z01.419 ; Encounter for counseling regarding contraception Z30.9 and Encounter for initial prescription of contraceptive pills Z30.011 [place] [address] [address] November, Contraceptive management V25 .9 [facility] [address] [id number] [address] [place] [address], [place] [address] 14 Oct, 2014 [facility] [address] [id number] [address] [place] [address], [place] [address] Oct, [facility] [address] [id number] [address] [place] [address], [place] [address] Aug, [facility] [address] [id number] [address] [place] [address], [place] [address] Aug, [facility] [address] [id number] [address] [place] [address], [place] [address] Jun, [facility] [address] [id number] [address] [place] [address], [place] [address] Jun, [facility] [address] [id number] [address] [place] [address], [place] [address] Jun, [facility] [address] [id number] [address] [place] [address], [place] [address] Jun, [facility] [address] [id number] [address] [place] [address], [place] [address] Jun, [facility] [address] [id number] [address] [place] [address], [place] [address] Jun, [facility] [address] [id number] [address] [place] [address], [place] [address] Jun, [facility] [address] [id number] [address] [place] [address], [place] [address] Jun, [facility] [address] [id number] [address] [place] [address], [place] [address] Jun, [facility] [address] [id number] [address] [place] [address], [place] [address] Jun, [facility] [address] [id number] [address] [place] [address], [place] [address] Jun, [facility] [address] [id number] [address] [place] [address], [place] [address] May, [facility] [address] [id number] [address] [place] [address], [place] [address] May, [facility] [address] [id number] [address] [place] [address], [place] [address] May, [facility] [address] [id number] [address] [place] [address], [place] [address] May, [facility] [address] [id number] [address] [place] [address], [place] [address] Apr, [facility] [address] [id number] [address] [place] [address], [place] [address] Apr, [facility] [address] [id number] [address] [place] [address], [place] [address] Apr, [facility] [address] [id number] [address] [place] [address], [place] [address] Apr, [facility] [address] [id number] [address] [place] [address], [place] [address] Apr, [facility] [address] [id number] [address] [place] [address], [place] [address] Apr, [facility] [address] [id number] [address] [place] [address], [place] [address] Apr, [facility] [address] [id number] [address] [place] [address], [place] [address] Apr, [facility] [address] [id number] [address] [place] [address], [place] [address] Mar, [facility] [address] [id number] [address] [place] [address], [place] [address] Mar, [facility] [address] [id number] [address] [place] [address], [place] [address] Feb, [facility] [address] [id number] [address] [place] [address], [place] [address] Feb, [facility] [address] [id number] [facility] [place] [address] Jan, [facility] [address] [id number] [facility] [place] [address] Jan, [facility] [address] [id number] [facility] [place] [address] Jan, [facility] [address] [id number] [facility] [place] [address] Jan, [facility] [address] [id number] [facility] [place] [address] Jan, [facility] [address] [id number] [address] [place] [address], [place] [address] Dec, [facility] [address] [id number] [address] [place] [address], [place] [address] Dec, [facility] [address] [id number] [address] [place] [address], [place] [address] Dec, [facility] [address] [id number] [address] [place] [address], [place] [address] Dec, [facility] [address] [id number] [address] [place] [address], [place] [address] Dec, [facility] [place] [facility] [address] [id number] [address] [place] [address], [place] [address] Dec, [facility] [address] [id number] [address] [place] [address], [place] [address] Dec, [facility] [address] [id number] [address] [place] [address], [place] [address] Dec, [facility] [address] [id number] [address] [place] [address], [place] [address] Dec, [facility] [address] [id number] [address] [place] [address], [place] [address] November, [facility] [address] [id number] [address] [place] [address], [place] [address] November, [facility] [address] [id number] [facility] [place] [address] November, [facility] [address] [id number] [address] [place] [address], [place] [address] November, [facility] [address] [id number] [facility] [place] [address] November, [facility] [address] [id number] [address] [place] [address], [place] [address] November, [facility] [address] [id number] [address] [place] [address], [place] [address] November, [facility] [address] [id number] [address] [place] [address], [place] [address] November, [facility] [address] [id number] [address] [place] [address], [place] [address] November, [facility] [address] [id number] [address] [place] [address], [place] [address] November, [facility] [address] [id number] [address] [place] [address], [place] [address] Aug, [facility] [address] [id number] [address] [place] [address], [place] [address] Aug, [facility] [address] [id number] [address] [place] [address], [place] [address] Mar, [facility] [address] [id number] [address] [place] [address], [place] [address] Feb, [facility] [place] [facility] [address] [id number] [address] [place] [address], [place] [address] Jan, [facility] [place] [facility] [address] [id number] [address] [place] [address], [place] [address] Jan, [facility] [address] [id number] [address] [place] [address], [place] [address] Jan, [facility] [address] [id number] [address] [place] [address] Jan, [facility] [address] [id number] [address] [place] [address], [place] [address] Dec, [facility] [address] [id number] [address] [place] [address], [place] [address] 15 Oct, 2012 [facility] [address] [id number] [address] [place] [address], [place] [address] 28 Aug, 2012 [facility] [address] [id number] [address] [place] [address], [place] [address] 27 Aug, 2012 [facility] [address] [id number] [address] [place] [address], [place] [address] 26 Aug, 2012 [facility] [address] [id number] [address] [place] [address], [place] [address] 22 Aug, 2012 [facility] [address] [id number] [address] [place] [address], [place] [address] 18 Aug, 2012 [facility] [address] [id number] [address] [place] [address], [place] [address] 15 Aug, 2012 [facility] [address] [id number] [address] [place] [address], [place] [address] 14 Aug, 2012 [facility] [address] [id number] [address] [place] [address], [place] [address] 12 Aug, 2012 [facility] [address] [id number] [address] [place] [address], [place] [address] Sep, [facility] [address] [id number] [address] [place] [address], [place] [address] Jul, [facility] [address] [id number] [address] [place] [address], [place] [address] Jul, [facility] [address] [id number] [address] [place] [address], [place] [address] 08 Jun, 2011 [facility] [address] [id number] [address] [place] [address], [place] [address] Jun, [facility] [address] [id number] [address] [place] [address] Jun, [facility] [address] [id number] [address] [place] [address] May, [facility] [address] [id number] [address] [place] [address] May, [facility] [address] [id number] [address] [place] [address] May, [facility] [address] [id number] [address] [place] [address] Apr, [facility] [address] [id number] [address] [place] [address] Apr, [facility] [address] [id number] [address] [place] [address] Apr, [facility] [address] [id number] [address] [place] [address] Feb, [facility] [address] [id number] [address] [place] [address] Jan, [facility] [address] [id number] [address] [place] [address] Dec, IMMUNIZATIONS No Known Immunizations SOCIAL HISTORY Never Assessed REASON FOR VISIT PLAN OF CARE VITAL SIGNS MEDICATIONS No Known Medications RESULTS No Results PROCEDURES No Known procedures INSTRUCTIONS MEDICATIONS ADMINISTERED No Known Medications MEDICAL (GENERAL) HISTORY Type Description Date Medical History herpes Surgical History No Surgical history information Hospitalization History Childbirth only
--- OUTSIDE RECORDS SUMMARY | 2019-07-27 20:24 | XMS REPORT ---
Author Author Ya Pierre Doctor Organization [facility] Address Unknown Phone Unavailable Care Team Providers Care Mold Capper Helper Name Role Phone Migration, Doctor Unavailable Unavailable PROBLEMS Type Condition ICD9-CM Code [id number] Code Onset Dates Condition S tatus SNOMED Code Problem History of anemia Z86.2 Active 27 [id number] Problem Herpes simplex vulvovaginitis A60.04 Active 79226299 Problem Irregular menses N92.6 Active 801 82989 ALLERGIES No Information ENCOUNTERS Encounter Location Date Diagnosis [facility] WALK IN [facility] [id number] [address] [place] [id number] 19 Aug, 2018 Strep throat J02.0 [facility] [address] [id number] [address] [place] [address] 14 Mar, 2018 Left wrist pain M25.532 [facility] WALK IN [facility] [id number] [address] [place] [id number] 06 Mar, 2018 Acute nasopharyngitis (commo n cold) J00 ; Post-nasal drip R09.82 and Sore throat J02.9 [facility] [address] [place] [address] Jan, [facility] [id number] [place] [address] Dec, [facility] [address] [place] [address] Dec, History of anemia Z86.2 [facility] [address] [id number] [address] [place] [address] Dec, Irregular menses N92.6 and S creening examination for sexually transmitted disease Z11.3 [facility] [id number] [place] [address] Dec, Irregular menses N92.6 ; His tory of anemia Z86.2 and Screening examination for sexually transmitted disease Z11.3 [facility] WALK IN [place] [address] [address] November, Herpes simplex vulvovaginiti s A60.04 [place] [address] [address] November, [facility] WALK IN [place] [address] [address] 07 Mar, 2017 Knee strain, right, initial encounter S86.911A [place] [address] [address] 14 Aug, 2016 Pelvic pain R10.2 [place] [address] [address] 08 Aug, 2016 Dyspareunia in female N94.10 and control counseling Z30.09 [facility] IN [place] [address] [address] 13 Jun, 2016 Gastroenteritis K52.9 and Ac siletz tribe effusion of both middle ears H65.193 [place] [address] [address] Apr, Swelling of pharynx J39.2 [place] [address] [address] Jan, [place] [address] [address] Jan, [place] [address] [address] Dec, Routine gynecological examin ation Z01.419 ; Encounter for counseling regarding contraception Z30.9 and Encounter for initial prescription of contraceptive pills Z30.011 [place] [address] [address] November, Contraceptive management V25 .9 [facility] [address] [id number] [address] [place] [address], [place] [address] 14 Oct, 2014 [facility] [address] [id number] [address] [place] [address], [place] [address] Oct, [facility] [address] [id number] [address] [place] [address], [place] [address] Aug, [facility] [address] [id number] [address] [place] [address], [place] [address] Aug, [facility] [address] [id number] [address] [place] [address], [place] [address] Jun, [facility] [address] [id number] [address] [place] [address], [place] [address] Jun, [facility] [address] [id number] [address] [place] [address], [place] [address] Jun, [facility] [address] [id number] [address] [place] [address], [place] [address] Jun, [facility] [address] [id number] [address] [place] [address], [place] [address] Jun, [facility] [address] [id number] [address] [place] [address], [place] [address] Jun, [facility] [address] [id number] [address] [place] [address], [place] [address] Jun, [facility] [address] [id number] [address] [place] [address], [place] [address] Jun, [facility] [address] [id number] [address] [place] [address], [place] [address] Jun, [facility] [address] [id number] [address] [place] [address], [place] [address] Jun, [facility] [address] [id number] [address] [place] [address], [place] [address] Jun, [facility] [address] [id number] [address] [place] [address], [place] [address] May, [facility] [address] [id number] [address] [place] [address], [place] [address] May, [facility] [address] [id number] [address] [place] [address], [place] [address] May, [facility] [address] [id number] [address] [place] [address], [place] [address] May, [facility] [address] [id number] [address] [place] [address], [place] [address] Apr, [facility] [address] [id number] [address] [place] [address], [place] [address] Apr, [facility] [address] [id number] [address] [place] [address], [place] [address] Apr, [facility] [address] [id number] [address] [place] [address], [place] [address] Apr, [facility] [address] [id number] [address] [place] [address], [place] [address] Apr, [facility] [address] [id number] [address] [place] [address], [place] [address] Apr, [facility] [address] [id number] [address] [place] [address], [place] [address] Apr, [facility] [address] [id number] [address] [place] [address], [place] [address] Apr, [facility] [address] [id number] [address] [place] [address], [place] [address] Mar, [facility] [address] [id number] [address] [place] [address], [place] [address] Mar, [facility] [address] [id number] [address] [place] [address], [place] [address] Feb, [facility] [address] [id number] [address] [place] [address], [place] [address] Feb, [facility] [address] [id number] [facility] [place] [address] Jan, [facility] [address] [id number] [facility] [place] [address] Jan, [facility] [address] [id number] [facility] [place] [address] Jan, [facility] [address] [id number] [facility] [place] [address] Jan, [facility] [address] [id number] [facility] [place] [address] Jan, [facility] [address] [id number] [address] [place] [address], [place] [address] Dec, [facility] [address] [id number] [address] [place] [address], [place] [address] Dec, [facility] [address] [id number] [address] [place] [address], [place] [address] Dec, [facility] [address] [id number] [address] [place] [address], [place] [address] Dec, [facility] [address] [id number] [address] [place] [address], [place] [address] Dec, [facility] [address] [id number] [address] [place] [address], [place] [address] Dec, [facility] [address] [id number] [address] [place] [address], [place] [address] Dec, [facility] [address] [id number] [address] [place] [address], [place] [address] Dec, [facility] [address] [id number] [address] [place] [address], [place] [address] Dec, [facility] [address] [id number] [address] [place] [address], [place] [address] November, [facility] [address] [id number] [address] [place] [address], [place] [address] November, [facility] [address] [id number] [facility] [place] [address] November, [facility] [address] [id number] [address] [place] [address], [place] [address] November, [facility] [address] [id number] [facility] [place] [address] November, [facility] [address] [id number] [address] [place] [address], [place] [address] November, [facility] [address] [id number] [address] [place] [address], [place] [address] November, [facility] [address] [id number] [address] [place] [address], [place] [address] November, [facility] [address] [id number] [address] [place] [address], [place] [address] November, [facility] [address] [id number] [address] [place] [address], [place] [address] November, [facility] [address] [id number] [address] [place] [address], [place] [address] Aug, [facility] [address] [id number] [address] [place] [address], [place] [address] Aug, [facility] [address] [id number] [address] [place] [address], [place] [address] Mar, [facility] [address] [id number] [address] [place] [address], [place] [address] Feb, [facility] [address] [id number] [address] [place] [address], [place] [address] Jan, [facility] [address] [id number] [address] [place] [address], [place] [address] Jan, [facility] [address] [id number] [address] [place] [address], [place] [address] Jan, [facility] [address] [id number] [address] [place] [address] Jan, [facility] [address] [id number] [address] [place] [address], [place] [address] Dec, [facility] [address] [id number] [address] [place] [address], [place] [address] 15 Oct, 2012 [facility] [address] [id number] [address] [place] [address], [place] [address] 28 Aug, 2012 [facility] [address] [id number] [address] [place] [address], [place] [address] 27 Aug, 2012 [facility] [address] [id number] [address] [place] [address], [place] [address] 26 Aug, 2012 [facility] [address] [id number] [address] [place] [address], [place] [address] 22 Aug, 2012 [facility] [address] [id number] [address] [place] [address], [place] [address] 18 Aug, 2012 [facility] [address] [id number] [address] [place] [address], [place] [address] 15 Aug, 2012 [facility] [address] [id number] [address] [place] [address], [place] [address] 14 Aug, 2012 [facility] [address] [id number] [address] [place] [address], [place] [address] 12 Aug, 2012 [facility] [address] [id number] [address] [place] [address], [place] [address] Sep, [facility] [address] [id number] [address] [place] [address], [place] [address] Jul, [facility] [address] [id number] [address] [place] [address], [place] [address] Jul, [facility] [address] [id number] [address] [place] [address], [place] [address] 08 Jun, 2011 [facility] [address] [id number] [address] [place] [address], [place] [address] Jun, [facility] [address] [id number] [address] [place] [address] Jun, [facility] [address] [id number] [address] [place] [address] May, [facility] [address] [id number] [address] [place] [address] May, [facility] [address] [id number] [address] [place] [address] May, [facility] [address] [id number] [address] [place] [address] Apr, [facility] [address] [id number] [address] [place] [address] Apr, [facility] [address] [id number] [address] [place] [address] Apr, [facility] [address] [id number] [address] [place] [address] Feb, [facility] [address] [id number] [address] [place] [address] Jan, [facility] [address] [id number] [address] [place] [address] Dec, IMMUNIZATIONS No Known Immunizations SOCIAL HISTORY Never Assessed REASON FOR VISIT EMR-[facility] PLAN OF CARE VITAL SIGNS MEDICATIONS No Known Medications RESULTS No Results PROCEDURES No Known procedures INSTRUCTIONS MEDICATIONS ADMINISTERED No Known Medications MEDICAL (GENERAL) HISTORY Type Description Date Medical History herpes Surgical History No Surgical history information Hospitalization History Childbirth only
--- OUTSIDE RECORDS SUMMARY | 2019-07-27 20:24 | XMS REPORT ---
Author Author Ya MAURER Organization [facility] Address [address] [place] [address] Care Team Providers Care Senior Inspector Name Role Phone KIA MAURER Unavailable PROBLEMS Type Condition ICD9-CM Code DMG81-CS Code Onset Dates Condition S tatus SNOMED Code Problem History of anemia Z86.2 Active 27 9817450 Problem Herpes simplex vulvovaginitis A60.04 Active 55778758 Problem Irregular menses N92.6 Active 801 02844 ALLERGIES No Information ENCOUNTERS Encounter Location Date Diagnosis [facility] [address] [place] [place] [id number] [place] [address] Aug, Strep throat J02.0 [facility] [address] [id number] [address] [place] [address] 14 Mar, 2018 Left wrist pain M25.532 [facility] [id number] [address] [place] [address] 06 Mar, 2018 Acute nasopharyngitis (commo n cold) J00 ; Post-nasal drip R09.82 and Sore throat J02.9 [facility] [id number] [place] [address] Jan, [facility] [address] [place] [address] [id number] [address] [place] [address] Dec, [place] [address] [id number] [place] [address] Dec, History of anemia Z86.2 [facility] [address] [id number] [address] [place] [address] Dec, Irregular menses N92.6 and S creening examination for sexually transmitted disease Z11.3 [place] [address] [place] [id number] [place] [address] Dec, Irregular menses N92.6 ; His tory of anemia Z86.2 and Screening examination for sexually transmitted disease Z11.3 [facility] [place] [address] [id number] [place] [address] November, Herpes simplex vulvovaginiti s A60.04 [place] [address] [address] November, [facility] [place] [address] [id number] 07 Mar, 2017 Knee strain, right, initial encounter S86.911A [place] [address] [address] 14 Aug, 2016 Pelvic pain R10.2 [place] [address] [address] 08 Aug, 2016 Dyspareunia in female N94.10 and control counseling Z30.09 [facility] [place] [address] [address] Jun, Gastroenteritis K52.9 and Ac [place] effusion of both middle ears H65.193 [place] [address] [address] Apr, Swelling of pharynx J39.2 [place] [address] [place] [id number] [place] [address] Jan, [place] [address] [address] Jan, [place] [address] [address] Dec, Routine gynecological examin ation Z01.419 ; Encounter for counseling regarding contraception Z30.9 and Encounter for initial prescription of contraceptive pills Z30.011 [facility] [address] [id number] [address] [place] [address], [place] [address] November, Contraceptive management V25 .9 [facility] [address] [id number] [address] [place] [address], [place] [address] 14 Oct, 2014 [facility] [address] [id number] [address] [place] [address], [place] [address] Oct, [facility] [address] [id number] [address] [place] [address], [place] [address] Aug, [facility] [address] [id number] [address] [place] [address], [place] [address] Aug, [facility] [address] [id number] [address] [place] [address], [place] [address] Jun, [facility] [address] [id number] [address] [place] [address], [place] [address] Jun, [facility] [address] [id number] [address] [place] [address], [place] [address] Jun, [facility] [address] [id number] [address] [place] [address], [place] [address] Jun, [facility] [address] [id number] [address] [place] [address], [place] [address] Jun, [facility] [address] [id number] [address] [place] [address], [place] [address] 15 Jun, 2014 [facility] [address] [id number] [address] [place] [address], [place] [address] 15 Jun, 2014 [facility] [address] [id number] [address] [place] [address], [place] [address] 15 Jun, 2014 [facility] [address] [id number] [address] [place] [address], [place] [address] 10 Jun, 2014 [facility] [address] [id number] [address] [place] [id number] 08 Jun, 2014 [facility] [address] [id number] [address] [place] [address] Jun, [facility] [address] [id number] [address] [place] [address], [place] [address] May, [facility] [address] [id number] [address] [place] [address], [place] [address] May, [facility] [address] [id number] [address] [place] [address], [place] [address] May, [facility] [address] [id number] [address] [place] [address], [place] [address] May, [facility] [address] [id number] [address] [place] [address], [place] [address] Apr, [facility] [address] [id number] [address] [place] [address], [place] [address] Apr, [facility] [address] [id number] [address] [place] [address], [place] [address] Apr, [facility] [address] [id number] [address] [place] [address], [place] [address] Apr, [facility] [address] [id number] [address] [place] [address], [place] [address] Apr, [facility] [address] [id number] [address] [place] [address], [place] [address] Apr, [facility] [address] [id number] [address] [place] [address], [place] [address] Apr, [facility] [address] [id number] [address] [place] [address] Apr, [facility] [address] [id number] [address] [place] [address], [place] [address] Mar, [facility] [address] [id number] [address] [place] [address], [place] [address] Mar, [facility] [address] [id number] [address] [place] [address], [place] [address] Feb, [facility] [address] [id number] [address] [place] [address], [place] [address] Feb, [facility] [address] [id number] [address] [place] [address], [place] [address] Jan, [facility] [address] [id number] [address] [place] [address], [place] [address] Jan, [facility] [address] [id number] [address] [place] [address], [place] [address] Jan, [facility] [address] [id number] [address] [place] [address], [place] [address] Jan, [facility] [address] [id number] [address] [place] [address], [place] [address] Jan, [facility] [address] [id number] [address] [place] [address], [place] [address] Dec, [facility] [address] [id number] [address] [place] [address], [place] [address] Dec, [facility] [address] [id number] [address] [place] [address], [place] [address] Dec, [facility] [address] [id number] [address] [place] [address], [place] [address] Dec, [facility] [address] [id number] [address] [place] [address], [place] [address] Dec, [facility] [address] [id number] [address] [place] [address], [place] [address] Dec, [facility] [address] [id number] [address] [place] [address], [place] [address] Dec, [facility] [address] [id number] [address] [place] [address], [place] [address] Dec, [facility] [address] [id number] [address] [place] [address], [place] [address] Dec, [facility] [address] [id number] [address] [place] [address], [place] [address] November, [facility] [address] [id number] [address] [place] [address], [place] [address] November, [facility] [address] [id number] [address] [place] [address], [place] [address] November, [facility] [address] [id number] [address] [place] [address], [place] [address] November, [facility] [address] [id number] [address] [place] [address], [place] [address] November, [facility] [address] [id number] [address] [place] [address], [place] [address] November, [facility] [address] [id number] [address] [place] [address], [place] [address] November, [facility] [address] [id number] [address] [place] [address], [place] [address] November, [facility] [address] [id number] [address] [place] [address], [place] [address] November, [facility] [address] [id number] [address] [place] [address], [place] [address] November, [facility] [address] [id number] [address] [place] [address], [place] [address] Aug, [facility] [address] [id number] [address] [place] [address], [place] [address] Aug, [facility] [address] [id number] [address] [place] [address], [place] [address] Mar, [facility] [address] [id number] [address] [place] [address], [place] [address] Feb, [facility] [address] [id number] [address] [place] [address], [place] [address] Jan, [facility] [address] [id number] [address] [place] [address], [place] [address] Jan, [facility] [address] [id number] [address] [place] [address], [place] [address] Jan, [facility] [address] [id number] [address] [place] [address], [place] [address] Jan, [facility] [address] [id number] [address] [place] [address], [place] [address] Dec, [facility] [address] [id number] [address] [place] [address], [place] [address] Oct, [facility] [address] [id number] [address] [place] [address], [place] [address] 28 Aug, 2012 [facility] [address] [id number] [address] [place] [address], [place] [address] 27 Aug, 2012 [facility] [address] [id number] [address] [place] [address], [place] [address] Aug, [facility] [address] [id number] [address] [place] [address], [place] [address] Aug, [facility] [address] [id number] [address] [place] [address], [place] [address] 18 Aug, 2012 [facility] [address] [id number] [address] [place] [address], [place] [address] 15 Aug, 2012 [facility] [address] [id number] [address] [place] [address], [place] [address] 14 Aug, 2012 [facility] [address] [id number] [address] [place] [address], [place] [address] 12 Aug, 2012 [facility] [address] [id number] [address] [place] [address], [place] [address] Sep, [facility] [address] [id number] [address] [place] [address], [place] [address] Jul, [facility] [address] [id number] [address] [place] [address], [place] [address] Jul, [facility] [address] [id number] [address] [place] [address], [place] [address] Jun, [facility] [address] [id number] [address] [place] [address] Jun, [facility] [address] [id number] [address] [place] [address] Jun, [facility] [address] [id number] [address] [place] [address] May, [facility] [address] [id number] [address] [place] [address] May, [facility] [address] [id number] [address] [place] [address] May, [facility] [address] [id number] [address] [place] [address] Apr, [facility] [address] [id number] [address] [place] [address] Apr, [facility] [address] [id number] [address] [place] [address] Apr, [facility] [address] [id number] [address] [place] [address] Feb, [facility] [address] [id number] [address] [place] [address] Jan, [facility] [address] [id number] [address] [place] [address] Dec, IMMUNIZATIONS No Known Immunizations SOCIAL HISTORY Never Assessed REASON FOR VISIT PLAN OF CARE VITAL SIGNS Height 64 in 2014-07-02 Weight 165.3 lbs 2014-07-02 Temperature 98 degrees Fahrenheit 2014-07-02 Heart Rate 72 bpm 2014-07-02 Respiratory Rate 18 2014-07-02 Blood pressure systolic 120 mmHg 2014-07-02 Blood pressure diastolic 78 mmHg 2014-07-02 MEDICATIONS No Known Medications RESULTS No Results PROCEDURES Procedure Date Ordered Result Body Site STREP CULTURE Jul 02, 2014 HEMOGLOBIN Jul 02, 2014 URINE-NO MICRO Jul 02, 2014 INSTRUCTIONS MEDICATIONS ADMINISTERED No Known Medications MEDICAL (GENERAL) HISTORY Type Description Date Medical History herpes Surgical History No Surgical history information Hospitalization History Childbirth only
--- OUTSIDE RECORDS SUMMARY | 2019-07-27 20:24 | XMS REPORT ---
Author Author Ya MAURER Organization [facility] Address [address] [place] [address] Care Team Providers Care Tarp Repairer Name Role Phone KIA MAURER Unavailable PROBLEMS Type Condition ICD9-CM Code RWB56-LY Code Onset Dates Condition S tatus SNOMED Code Problem History of anemia Z86.2 Active 27 1307843 Problem Herpes simplex vulvovaginitis A60.04 Active 56627630 Problem Irregular menses N92.6 Active 801 71494 ALLERGIES No Information ENCOUNTERS Encounter Location Date Diagnosis [facility] [id number] [place] [address] Aug, Strep throat J02.0 [facility] [id number] [place] [address] 14 Mar, 2018 Left wrist pain M25.532 [facility] [id number] [place] [address] 06 Mar, 2018 Acute nasopharyngitis (commo n cold) J00 ; Post-nasal drip R09.82 and Sore throat J02.9 [facility] [id number] [place] [address] Jan, [facility] [address] [id number] [address] [place] [address] Dec, [place] [id number] [place] [address] Dec, History of anemia Z86.2 [facility] [address] [id number] [address] [place] [address] Dec, Irregular menses N92.6 and S creening examination for sexually transmitted disease Z11.3 [place] [id number] [place] [address] Dec, Irregular menses N92.6 ; His tory of anemia Z86.2 and Screening examination for sexually transmitted disease Z11.3 [facility] [place] [id number] [place] [address] November, Herpes simplex vulvovaginiti s A60.04 [place] [address] [address] November, [facility] [place] [address] [address] 07 Mar, 2017 Knee strain, right, initial encounter S86.911A [place] [address] [address] 14 Aug, 2016 Pelvic pain R10.2 [place] [address] [address] 08 Aug, 2016 Dyspareunia in female N94.10 and control counseling Z30.09 [facility] [place] [address] [address] Jun, Gastroenteritis K52.9 and Ac [place] effusion of both middle ears H65.193 [place] [address] [address] Apr, Swelling of pharynx J39.2 [place] [id number] [place] [address] Jan, [place] [address] [address] Jan, [place] [address] [address] Dec, Routine gynecological examin ation Z01.419 ; Encounter for counseling regarding contraception Z30.9 and Encounter for initial prescription of contraceptive pills Z30.011 [facility] [address] [id number] [address] [place] [address], [place] [address] November, Contraceptive management V25 .9 [facility] [address] [id number] [address] [place] [address], [place] [address] 14 Oct, 2014 [facility] [address] [id number] [address] [place] [address], [place] [address] Oct, [facility] [address] [id number] [address] [place] [address], [place] [address] Aug, [facility] [address] [id number] [address] [place] [address], [place] [address] Aug, [facility] [address] [id number] [address] [place] [address], [place] [address] Jun, [facility] [address] [id number] [address] [place] [address], [place] [address] Jun, [facility] [address] [id number] [address] [place] [address], [place] [address] Jun, [facility] [address] [id number] [address] [place] [address], [place] [address] Jun, [facility] [address] [id number] [address] [place] [address], [place] [address] Jun, [facility] [address] [id number] [address] [place] [address], [place] [address] 15 Jun, 2014 [facility] [address] [id number] [address] [place] [address], [place] [address] 15 Jun, 2014 [facility] [address] [id number] [address] [place] [address], [place] [address] 15 Jun, 2014 [facility] [address] [id number] [address] [place] [address], [place] [address] 10 Jun, 2014 [facility] [address] [id number] [address] [place] [address] 08 Jun, 2014 [facility] [address] [id number] [address] [place] [address] Jun, [facility] [address] [id number] [address] [place] [address], [place] [address] May, [facility] [address] [id number] [address] [place] [address], [place] [address] May, [facility] [address] [id number] [address] [place] [address], [place] [address] May, [facility] [address] [id number] [address] [place] [address], [place] [address] May, [facility] [address] [id number] [address] [place] [address], [place] [address] Apr, [facility] [address] [id number] [address] [place] [address], [place] [address] Apr, [facility] [address] [id number] [address] [place] [address], [place] [address] Apr, [facility] [address] [id number] [address] [place] [address], [place] [address] Apr, [facility] [address] [id number] [address] [place] [address], [place] [address] Apr, [facility] [address] [id number] [address] [place] [address], [place] [address] Apr, [facility] [address] [id number] [address] [place] [address], [place] [address] Apr, [facility] [address] [id number] [address] [place] [address] Apr, [facility] [address] [id number] [address] [place] [address], [place] [address] Mar, [facility] [address] [id number] [address] [place] [address], [place] [address] Mar, [facility] [address] [id number] [address] [place] [address], [place] [address] Feb, [facility] [address] [id number] [address] [place] [address], [place] [address] Feb, [facility] [address] [id number] [address] [place] [address], [place] [address] Jan, [facility] [address] [id number] [address] [place] [address], [place] [address] Jan, [facility] [address] [id number] [address] [place] [address], [place] [address] Jan, [facility] [address] [id number] [address] [place] [address], [place] [address] Jan, [facility] [address] [id number] [address] [place] [address], [place] [address] Jan, [facility] [address] [id number] [address] [place] [address], [place] [address] Dec, [facility] [address] [id number] [address] [place] [address], [place] [address] Dec, [facility] [address] [id number] [address] [place] [address], [place] [address] Dec, [facility] [address] [id number] [address] [place] [address], [place] [address] Dec, [facility] [address] [id number] [address] [place] [address], [place] [address] Dec, [facility] [address] [id number] [address] [place] [address], [place] [address] Dec, [facility] [address] [id number] [address] [place] [address], [place] [address] Dec, [facility] [address] [id number] [address] [place] [address], [place] [address] Dec, [facility] [address] [id number] [address] [place] [address], [place] [address] Dec, [facility] [address] [id number] [address] [place] [address], [place] [address] November, [facility] [address] [id number] [address] [place] [address], [place] [address] November, [facility] [address] [id number] [address] [place] [address], [place] [address] November, [facility] [address] [id number] [address] [place] [address], [place] [address] November, [facility] [address] [id number] [address] [place] [address], [place] [address] November, [facility] [address] [id number] [address] [place] [address], [place] [address] November, [facility] [address] [id number] [address] [place] [address], [place] [address] November, [facility] [address] [id number] [address] [place] [address], [place] [address] November, [facility] [address] [id number] [address] [place] [address], [place] [address] November, [facility] [address] [id number] [address] [place] [address], [place] [address] November, [facility] [address] [id number] [address] [place] [address], [place] [address] Aug, [facility] [address] [id number] [address] [place] [address], [place] [address] Aug, [facility] [address] [id number] [address] [place] [address], [place] [address] Mar, [facility] [address] [id number] [address] [place] [address], [place] [address] Feb, [facility] [address] [id number] [address] [place] [address], [place] [address] Jan, [facility] [address] [id number] [address] [place] [address], [place] [address] Jan, [facility] [address] [id number] [address] [place] [address], [place] [address] Jan, [facility] [address] [id number] [address] [place] [address], [place] [address] Jan, [facility] [address] [id number] [address] [place] [address], [place] [address] Dec, [facility] [address] [id number] [address] [place] [address], [place] [address] Oct, [facility] [address] [id number] [address] [place] [address], [place] [address] 28 Aug, 2012 [facility] [address] [id number] [address] [place] [address], [place] [address] 27 Aug, 2012 [facility] [address] [id number] [address] [place] [address], [place] [address] Aug, [facility] [address] [id number] [address] [place] [address], [place] [address] Aug, [facility] [address] [id number] [address] [place] [address], [place] [address] 18 Aug, 2012 [facility] [address] [id number] [address] [place] [address], [place] [address] 15 Aug, 2012 [facility] [address] [id number] [address] [place] [address], [place] [address] 14 Aug, 2012 [facility] [address] [id number] [address] [place] [address], [place] [address] 12 Aug, 2012 [facility] [address] [id number] [address] [place] [address], [place] [address] Sep, [facility] [address] [id number] [address] [place] [address], [place] [address] Jul, [facility] [address] [id number] [address] [place] [address], [place] [address] Jul, [facility] [address] [id number] [address] [place] [address], [place] [address] Jun, [facility] [address] [id number] [address] [place] [address] Jun, [facility] [address] [id number] [address] [place] [address] Jun, [facility] [address] [id number] [address] [place] [address] May, [facility] [address] [id number] [address] [place] [address] May, [facility] [address] [id number] [address] [place] [address] May, [facility] [address] [id number] [address] [place] [address] Apr, [facility] [address] [id number] [address] [place] [address] Apr, [facility] [address] [id number] [address] [place] [address] Apr, [facility] [address] [id number] [address] [place] [address] Feb, [facility] [address] [id number] [address] [place] [address] Jan, [facility] [address] [id number] [address] [place] [address] Dec, IMMUNIZATIONS No Known Immunizations SOCIAL HISTORY Never Assessed REASON FOR VISIT PLAN OF CARE VITAL SIGNS Height 64 in 2014-05-23 Weight 155 lbs 2014-05-23 Temperature 98.6 degrees Fahrenheit 2014-05-23 Heart Rate 90 bpm 2014-05-23 Respiratory Rate 18 2014-05-23 Blood pressure systolic 102 mmHg 2014-05-23 Blood pressure diastolic 60 mmHg 2014-05-23 MEDICATIONS No Known Medications RESULTS No Results PROCEDURES Procedure Date Ordered Result Body Site COMPLETE CBC W/AUTO DIFF WBC May 23, 2014 GLUCOSE TEST May 23, 2014 BLOOD FOLIC ACID SERUM May 23, 2014 VITAMIN B-12 May 23, 2014 VENIPUNCT, ROUTINE* May 23, 2014 URINE-NO MICRO May 23, 2014 INSTRUCTIONS MEDICATIONS ADMINISTERED No Known Medications MEDICAL (GENERAL) HISTORY Type Description Date Medical History herpes Surgical History No Surgical history information Hospitalization History Childbirth only
--- OUTSIDE RECORDS SUMMARY | 2019-07-27 20:24 | XMS REPORT ---
Author Author Ya MAURER Organization [facility] Address [address] [place] [address] Care Team Providers Care Gas Engine Operator Name Role Phone KIA MAURER Unavailable PROBLEMS Type Condition ICD9-CM Code [id number] Code Onset Dates Condition S tatus SNOMED Code Problem History of anemia Z86.2 Active 27 9782536 Problem Herpes simplex vulvovaginitis A60.04 Active 10826223 Problem Irregular menses N92.6 Active 801 99845 ALLERGIES No Information ENCOUNTERS Encounter Location Date Diagnosis [facility]ALK IN [facility] [address] [id number] [place] [phone] Aug, Strep throat J02.0 [facility] [id number] [place] [id number] 14 Mar, 2018 Left wrist pain M25.532 [facility] [id number] [place] [phone] 06 Mar, 2018 Acute nasopharyngitis (commo n cold) J00 ; Post-nasal drip R09.82 and Sore throat J02.9 [facility] [id number] [place] [address] Jan, [facility] [address] [place] [id number] [place] [address] Dec, [place] [address] [id number] [place] [id number] Dec, History of anemia Z86.2 [facility] [id number] [place] [phone] Dec, Irregular menses N92.6 and S creening examination for sexually transmitted disease Z11.3 [place] [address] [id number] [place] [phone] Dec, Irregular menses N92.6 ; His tory of anemia Z86.2 and Screening examination for sexually transmitted disease Z11.3 [facility]ALK [facility] [place] [address] [id number] [place] [phone] November, Herpes simplex vulvovaginiti s A60.04 [place] [address] [address] November, [facility] IN [place] [address] [id number] 07 Mar, 2017 Knee strain, right, initial encounter S86.911A [place] [address] [address] 14 Aug, 2016 Pelvic pain R10.2 [place] [address] [id number] 08 Aug, 2016 Dyspareunia in female N94.10 and control counseling Z30.09 [facility] [place] [address] [address] Jun, Gastroenteritis K52.9 and Ac [place] effusion of both middle ears H65.193 [place] [address] [address] Apr, Swelling of pharynx J39.2 [place] [address] [place] [id number] [place] [phone] Jan, [place] [address] [id number] Jan, [place] [address] [address] Dec, Routine gynecological examin ation Z01.419 ; Encounter for counseling regarding contraception Z30.9 and Encounter for initial prescription of contraceptive pills Z30.011 [facility] [address] [id number] [address] [place] [address], [place] [address] November, Contraceptive management V25 .9 [facility] [address] [id number] [address] [place] [address], [place] [address] 14 Oct, 2014 [facility] [address] [id number] [address] [place] [address], [place] [address] Oct, [facility] [address] [id number] [address] [place] [address], [place] [address] Aug, [facility] [address] [id number] [address] [place] [address], [place] [address] Aug, [facility] [address] [id number] [address] [place] [address], [place] [address] Jun, [facility] [address] [id number] [address] [place] [address], [place] [address] Jun, [facility] [address] [id number] [address] [place] [address], [place] [address] Jun, [facility] [address] [id number] [address] [place] [address], [place] [address] Jun, [facility] [address] [id number] [address] [place] [address], [place] [address] Jun, [facility] [address] [id number] [address] [place] [address], [place] [address] 15 Jun, 2014 [facility] [address] [id number] [address] [place] [address], [place] [address] 15 Jun, 2014 [facility] [address] [id number] [address] [place] [address], [place] [address] 15 Jun, 2014 [facility] [address] [id number] [address] [place] [address], [place] [address] 10 Jun, 2014 [facility] [address] [id number] [address] [place] [id number] 08 Jun, 2014 [facility] [address] [id number] [address] [place] [phone] Jun, [facility] [address] [id number] [address] [place] [address], [place] [address] May, [facility] [address] [id number] [address] [place] [address], [place] [address] May, [facility] [address] [id number] [address] [place] [address], [place] [address] May, [facility] [address] [id number] [address] [place] [address], [place] [address] May, [facility] [address] [id number] [address] [place] [address], [place] [address] Apr, [facility] [address] [id number] [address] [place] [address], [place] [address] Apr, [facility] [address] [id number] [address] [place] [address], [place] [address] Apr, [facility] [address] [id number] [address] [place] [address], [place] [address] Apr, [facility] [address] [id number] [address] [place] [address], [place] [address] Apr, [facility] [address] [id number] [address] [place] [address], [place] [address] Apr, [facility] [address] [id number] [address] [place] [address], [place] [address] Apr, [facility] [address] [id number] [address] [place] [id number] Apr, [facility] [address] [id number] [address] [place] [address], [place] [address] Mar, [facility] [address] [id number] [address] [place] [address], [place] [address] Mar, [facility] [address] [id number] [address] [place] [address], [place] [address] Feb, [facility] [address] [id number] [address] [place] [address], [place] [address] Feb, [facility] [address] [id number] [address] [place] [address], [place] [address] Jan, [facility] [address] [id number] [address] [place] [address], [place] [address] Jan, [facility] [address] [id number] [address] [place] [address], [place] [address] Jan, [facility] [address] [id number] [address] [place] [address], [place] [address] Jan, [facility] [address] [id number] [address] [place] [address], [place] [address] Jan, [facility] [address] [id number] [address] [place] [address], [place] [address] Dec, [facility] [address] [id number] [address] [place] [address], [place] [address] Dec, [facility] [address] [id number] [address] [place] [address], [place] [address] Dec, [facility] [address] [id number] [address] [place] [address], [place] [address] Dec, [facility] [address] [id number] [address] [place] [address], [place] [address] Dec, [facility] [address] [id number] [address] [place] [address], [place] [address] Dec, [facility] [address] [id number] [address] [place] [address], [place] [address] Dec, [facility] [address] [id number] [address] [place] [address], [place] [address] Dec, [facility] [address] [id number] [address] [place] [address], [place] [address] Dec, [facility] [address] [id number] [address] [place] [address], [place] [address] November, [facility] [address] [id number] [address] [place] [address], [place] [address] November, [facility] [address] [id number] [address] [place] [address], [place] [address] November, [facility] [address] [id number] [address] [place] [address], [place] [address] November, [facility] [address] [id number] [address] [place] [address], [place] [address] November, [facility] [address] [id number] [address] [place] [address], [place] [address] November, [facility] [address] [id number] [address] [place] [address], [place] [address] November, [facility] [address] [id number] [address] [place] [address], [place] [address] November, [facility] [address] [id number] [address] [place] [address], [place] [address] November, [facility] [address] [id number] [address] [place] [address], [place] [address] November, [facility] [address] [id number] [address] [place] [address], [place] [address] Aug, [facility] [address] [id number] [address] [place] [address], [place] [address] Aug, [facility] [address] [id number] [address] [place] [address], [place] [address] Mar, [facility] [address] [id number] [address] [place] [address], [place] [address] Feb, [facility] [address] [id number] [address] [place] [address], [place] [address] Jan, [facility] [address] [id number] [address] [place] [address], [place] [address] Jan, [facility] [address] [id number] [address] [place] [address], [place] [address] Jan, [facility] [address] [id number] [address] [place] [address], [place] [address] Jan, [facility] [address] [id number] [address] [place] [address], [place] [address] Dec, [facility] [address] [id number] [address] [place] [address], [place] [address] Oct, [facility] [address] [id number] [address] [place] [address], [place] [address] 28 Aug, 2012 [facility] [address] [id number] [address] [place] [address], [place] [address] 27 Aug, 2012 [facility] [address] [id number] [address] [place] [address], [place] [address] Aug, [facility] [address] [id number] [address] [place] [address], [place] [address] Aug, [facility] [address] [id number] [address] [place] [address], [place] [address] 18 Aug, 2012 [facility] [address] [id number] [address] [place] [address], [place] [address] 15 Aug, 2012 [facility] [address] [id number] [address] [place] [address], [place] [address] 14 Aug, 2012 [facility] [address] [id number] [address] [place] [address], [place] [address] 12 Aug, 2012 [facility] [address] [id number] [address] [place] [address], [place] [address] Sep, [facility] [address] [id number] [address] [place] [address], [place] [address] Jul, [facility] [address] [id number] [address] [place] [address], [place] [address] Jul, [facility] [address] [id number] [address] [place] [address], [place] [address] Jun, [facility] [address] [id number] [address] [place] [address] Jun, [facility] [address] [id number] [address] [place] [address] Jun, [facility] [address] [id number] [address] [place] [address] May, [facility] [address] [id number] [address] [place] [phone] May, [facility] [address] [id number] [address] [place] [address] May, [facility] [address] [id number] [address] [place] [address] Apr, [facility] [address] [id number] [address] [place] [address] Apr, [facility] [address] [id number] [address] [place] [address] Apr, [facility] [address] [id number] [address] [place] [phone] Feb, [facility] [address] [id number] [address] [place] [address] Jan, [facility] [address] [id number] [address] [place] [address] Dec, IMMUNIZATIONS No Known Immunizations SOCIAL HISTORY Never Assessed REASON FOR VISIT PLAN OF CARE VITAL SIGNS Height 64 in 2014-06-06 Weight 160 lbs 2014-06-06 Temperature 97.7 degrees Fahrenheit 2014-06-06 Heart Rate 78 bpm 2014-06-06 Respiratory Rate 18 2014-06-06 Blood pressure systolic 114 mmHg 2014-06-06 Blood pressure diastolic 74 mmHg 2014-06-06 MEDICATIONS No Known Medications RESULTS No Results PROCEDURES Procedure Date Ordered Result Body Site URINE-NO MICRO Jun 06, 2014 INSTRUCTIONS MEDICATIONS ADMINISTERED No Known Medications MEDICAL (GENERAL) HISTORY Type Description Date Medical History herpes Surgical History No Surgical history information Hospitalization History Childbirth only
--- OUTSIDE RECORDS SUMMARY | 2019-07-27 20:24 | XMS REPORT ---
Author Author Ya MAURER Organization [facility] Address [address] [place] [address] Care Team Providers Care Afterschool Name Role Phone KIA MAURER Unavailable PROBLEMS Type Condition ICD9-CM Code JWF55-[id number] Code Onset Dates Condition S tatus SNOMED Code Problem History of anemia Z86.2 Active 27 9661293 Problem Herpes simplex vulvovaginitis A60.04 Active 09477676 Problem Irregular menses N92.6 Active 801 91560 ALLERGIES No Information ENCOUNTERS Encounter Location Date Diagnosis [facility] [id number] [address] [place] [address] Aug, Strep throat J02.0 [facility] [address] [id number] [address] [place] [address] 14 Mar, 2018 Left wrist pain M25.532 [facility] [id number] [place] [address] 06 Mar, 2018 Acute nasopharyngitis (commo n cold) J00 ; Post-nasal drip R09.82 and Sore throat J02.9 [facility] [id number] [place] [address] Jan, [facility] [address] [id number] [address] [place] [address] Dec, [place] [id number] [place] [address] Dec, History of anemia Z86.2 [facility] [address] [id number] [address] [place] [address] Dec, Irregular menses N92.6 and S creening examination for sexually transmitted disease Z11.3 [place] [address] [id number] [place] [address] Dec, Irregular menses N92.6 ; His tory of anemia Z86.2 and Screening examination for sexually transmitted disease Z11.3 [facility] [place] [id number] [place] [address] November, Herpes simplex vulvovaginiti s A60.04 [place] [address] [address] November, [facility] [place] [address] [address] 07 Mar, 2017 Knee strain, right, initial encounter S86.911A [place] [address] [address] 14 Aug, 2016 Pelvic pain R10.2 [place] [address] [address] 08 Aug, 2016 Dyspareunia in female N94.10 and control counseling Z30.09 [facility] [place] [address] [address] Jun, Gastroenteritis K52.9 and Ac crow effusion of both middle ears H65.193 [place] [address] [address] Apr, Swelling of pharynx J39.2 [place] [address] [id number] [place] [address] Jan, [place] [address] [address] Jan, [place] [address] [address] Dec, Routine gynecological examin ation Z01.419 ; Encounter for counseling regarding contraception Z30.9 and Encounter for initial prescription of contraceptive pills Z30.011 [facility] [address] [id number] [address] [place] [address], [place] [address] November, Contraceptive management V25 .9 [facility] [address] [id number] [address] [place] [address], [place] [address] 14 Oct, 2014 [facility] [address] [id number] [address] [place] [address], [place] [address] Oct, [facility] [address] [id number] [address] [place] [address], [place] [address] Aug, [facility] [address] [id number] [address] [place] [address], [place] [address] Aug, [facility] [address] [id number] [address] [place] [address], [place] [address] Jun, [facility] [address] [id number] [address] [place] [address], [place] [address] Jun, [facility] [address] [id number] [address] [place] [address], [place] [address] Jun, [facility] [address] [id number] [address] [place] [address], [place] [address] Jun, [facility] [address] [id number] [address] [place] [address], [place] [address] Jun, [facility] [address] [id number] [address] [place] [address], [place] [address] 15 Jun, 2014 [facility] [address] [id number] [address] [place] [address], [place] [address] 15 Jun, 2014 [facility] [address] [id number] [address] [place] [address], [place] [address] 15 Jun, 2014 [facility] [address] [id number] [address] [place] [address], [place] [address] 10 Jun, 2014 [facility] [address] [id number] [address] [place] [id number] 08 Jun, 2014 [facility] [address] [id number] [address] [place] [address] Jun, [facility] [address] [id number] [address] [place] [address], [place] [address] May, [facility] [address] [id number] [address] [place] [address], [place] [address] May, [facility] [address] [id number] [address] [place] [address], [place] [address] May, [facility] [address] [id number] [address] [place] [address], [place] [address] May, [facility] [address] [id number] [address] [place] [address], [place] [address] Apr, [facility] [address] [id number] [address] [place] [address], [place] [address] Apr, [facility] [address] [id number] [address] [place] [address], [place] [address] Apr, [facility] [address] [id number] [address] [place] [address], [place] [address] Apr, [facility] [address] [id number] [address] [place] [address], [place] [address] Apr, [facility] [address] [id number] [address] [place] [address], [place] [address] Apr, [facility] [address] [id number] [address] [place] [address], [place] [address] Apr, [facility] [address] [id number] [address] [place] [address] Apr, [facility] [address] [id number] [address] [place] [address], [place] [address] Mar, [facility] [address] [id number] [address] [place] [address], [place] [address] Mar, [facility] [address] [id number] [address] [place] [address], [place] [address] Feb, [facility] [address] [id number] [address] [place] [address], [place] [address] Feb, [facility] [address] [id number] [address] [place] [address], [place] [address] Jan, [facility] [address] [id number] [address] [place] [address], [place] [address] Jan, [facility] [address] [id number] [address] [place] [address], [place] [address] Jan, [facility] [address] [id number] [address] [place] [address], [place] [address] Jan, [facility] [address] [id number] [address] [place] [address], [place] [address] Jan, [facility] [address] [id number] [address] [place] [address], [place] [address] Dec, [facility] [address] [id number] [address] [place] [address], [place] [address] Dec, [facility] [address] [id number] [address] [place] [address], [place] [address] Dec, [facility] [address] [id number] [address] [place] [address], [place] [address] Dec, [facility] [address] [id number] [address] [place] [address], [place] [address] Dec, [facility] [address] [id number] [address] [place] [address], [place] [address] Dec, [facility] [address] [id number] [address] [place] [address], [place] [address] Dec, [facility] [address] [id number] [address] [place] [address], [place] [address] Dec, [facility] [address] [id number] [address] [place] [address], [place] [address] Dec, [facility] [address] [id number] [address] [place] [address], [place] [address] November, [facility] [address] [id number] [address] [place] [address], [place] [address] November, [facility] [address] [id number] [address] [place] [address], [place] [address] November, [facility] [address] [id number] [address] [place] [address], [place] [address] November, [facility] [address] [id number] [address] [place] [address], [place] [address] November, [facility] [address] [id number] [address] [place] [address], [place] [address] November, [facility] [address] [id number] [address] [place] [address], [place] [address] November, [facility] [address] [id number] [address] [place] [address], [place] [address] November, [facility] [address] [id number] [address] [place] [address], [place] [address] November, [facility] [address] [id number] [address] [place] [address], [place] [address] November, [facility] [address] [id number] [address] [place] [address], [place] [address] Aug, [facility] [address] [id number] [address] [place] [address], [place] [address] Aug, [facility] [address] [id number] [address] [place] [address], [place] [address] Mar, [facility] [address] [id number] [address] [place] [address], [place] [address] Feb, [facility] [address] [id number] [address] [place] [address], [place] [address] Jan, [facility] [address] [id number] [address] [place] [address], [place] [address] Jan, [facility] [address] [id number] [address] [place] [address], [place] [address] Jan, [facility] [address] [id number] [address] [place] [address], [place] [address] Jan, [facility] [address] [id number] [address] [place] [address], [place] [address] Dec, [facility] [address] [id number] [address] [place] [address], [place] [address] Oct, [facility] [address] [id number] [address] [place] [address], [place] [address] 28 Aug, 2012 [facility] [address] [id number] [address] [place] [address], [place] [address] 27 Aug, 2012 [facility] [address] [id number] [address] [place] [address], [place] [address] Aug, [facility] [address] [id number] [address] [place] [address], [place] [address] Aug, [facility] [address] [id number] [address] [place] [address], [place] [address] 18 Aug, 2012 [facility] [address] [id number] [address] [place] [address], [place] [address] 15 Aug, 2012 [facility] [address] [id number] [address] [place] [address], [place] [address] 14 Aug, 2012 [facility] [address] [id number] [address] [place] [address], [place] [address] 12 Aug, 2012 [facility] [address] [id number] [address] [place] [address], [place] [address] Sep, [facility] [address] [id number] [address] [place] [address], [place] [address] Jul, [facility] [address] [id number] [address] [place] [address], [place] [address] Jul, [facility] [address] [id number] [address] [place] [address], [place] [address] Jun, [facility] [address] [id number] [address] [place] [address] Jun, [facility] [address] [id number] [address] [place] [address] Jun, [facility] [address] [id number] [address] [place] [address] May, [facility] [address] [id number] [address] [place] [address] May, [facility] [address] [id number] [address] [place] [address] May, [facility] [address] [id number] [address] [place] [address] Apr, [facility] [address] [id number] [address] [place] [address] Apr, [facility] [address] [id number] [address] [place] [address] Apr, [facility] [address] [id number] [address] [place] [address] Feb, [facility] [address] [id number] [address] [place] [address] Jan, [facility] [address] [id number] [address] [place] [address] Dec, IMMUNIZATIONS No Known Immunizations SOCIAL HISTORY Never Assessed REASON FOR VISIT PLAN OF CARE VITAL SIGNS Height 64 in 2014-04-11 Weight 148.7 lbs 2014-04-11 Temperature 97.3 degrees Fahrenheit 2014-04-11 Heart Rate 74 bpm 2014-04-11 Respiratory Rate 18 2014-04-11 Blood pressure systolic 118 mmHg 2014-04-11 Blood pressure diastolic 68 mmHg 2014-04-11 MEDICATIONS No Known Medications RESULTS No Results PROCEDURES Procedure Date Ordered Result Body Site URINE-NO MICRO Apr 11, 2014 INSTRUCTIONS MEDICATIONS ADMINISTERED No Known Medications MEDICAL (GENERAL) HISTORY Type Description Date Medical History herpes Surgical History No Surgical history information Hospitalization History Childbirth only
--- OUTSIDE RECORDS SUMMARY | 2019-07-27 20:24 | XMS REPORT ---
Author Author Ya MAURER Organization [facility] Address [address] [place] [address] Care Team Providers Care Housing Coordinator Name Role Phone KIA MAURER Unavailable PROBLEMS Type Condition ICD9-CM Code QYR15-QE Code Onset Dates Condition S tatus SNOMED Code Problem History of anemia Z86.2 Active 27 5386132 Problem Herpes simplex vulvovaginitis A60.04 Active 08387692 Problem Irregular menses N92.6 Active 801 64911 ALLERGIES No Information ENCOUNTERS Encounter Location Date Diagnosis [facility] [address] [id number] [address] [place] [address] Aug, Strep throat J02.0 [facility] [address] [id number] [address] [place] [address] 14 Mar, 2018 Left wrist pain [address]25.532 [facility] [address] [id number] [address] [place] [address] 06 Mar, 2018 Acute nasopharyngitis (commo n cold) J00 ; Post-nasal drip R09.82 and Sore throat J02.9 [facility] [id number] [place] [address] Jan, [facility] [address] [id number] [address] [place] [address] Dec, [facility] [address] [id number] [address] [place] [address] Dec, History of anemia Z86.2 [facility] [address] [id number] [address] [place] [address] Dec, Irregular menses N92.6 and S creening examination for sexually transmitted disease Z11.3 [place] [id number] [place] [address] Dec, Irregular menses N92.6 ; His tory of anemia Z86.2 and Screening examination for sexually transmitted disease Z11.3 [facility] [place] [address] [id number] [address] [place] [address] November, Herpes simplex vulvovaginiti s A60.04 [place] [address] [address] November, [facility] [place] [address] [address] 07 Mar, 2017 Knee strain, right, initial encounter S86.911A [place] [address] [address] 14 Aug, 2016 Pelvic pain R10.2 [place] [address] [address] 08 Aug, 2016 Dyspareunia in female N94.10 and control counseling Z30.09 [facility] [place] [address] [address] Jun, Gastroenteritis K52.9 and Ac rosebud effusion of both middle ears H65.193 [place] [address] [address] Apr, Swelling of pharynx J39.2 [place] [address] [id number] [place] [address] Jan, [place] [address] [address] Jan, [place] [address] [address] Dec, Routine gynecological examin ation Z01.419 ; Encounter for counseling regarding contraception Z30.9 and Encounter for initial prescription of contraceptive pills Z30.011 [facility] [address] [id number] [address] [place] [address], [place] [address] November, Contraceptive management V25 .9 [facility] [address] [id number] [address] [place] [address], [place] [address] 14 Oct, 2014 [facility] [address] [id number] [address] [place] [address], [place] [address] Oct, [facility] [address] [id number] [address] [place] [address], [place] [address] Aug, [facility] [address] [id number] [address] [place] [address], [place] [address] Aug, [facility] [address] [id number] [address] [place] [address], [place] [address] Jun, [facility] [address] [id number] [address] [place] [address], [place] [address] Jun, [facility] [address] [id number] [address] [place] [address], [place] [address] Jun, [facility] [address] [id number] [address] [place] [address], [place] [address] Jun, [facility] [address] [id number] [address] [place] [address], [place] [address] Jun, [facility] [address] [id number] [address] [place] [address], [place] [address] 15 Jun, 2014 [facility] [address] [id number] [address] [place] [address], [place] [address] 15 Jun, 2014 [facility] [address] [id number] [address] [place] [address], [place] [address] 15 Jun, 2014 [facility] [address] [id number] [address] [place] [address], [place] [address] 10 Jun, 2014 [facility] [address] [id number] [address] [place] [address] 08 Jun, 2014 [facility] [address] [id number] [address] [place] [address] Jun, [facility] [address] [id number] [address] [place] [address], [place] [address] May, [facility] [address] [id number] [address] [place] [address], [place] [address] May, [facility] [address] [id number] [address] [place] [address], [place] [address] May, [facility] [address] [id number] [address] [place] [address], [place] [address] May, [facility] [address] [id number] [address] [place] [address], [place] [address] Apr, [facility] [address] [id number] [address] [place] [address], [place] [address] Apr, [facility] [address] [id number] [address] [place] [address], [place] [address] Apr, [facility] [address] [id number] [address] [place] [address], [place] [address] Apr, [facility] [address] [id number] [address] [place] [address], [place] [address] Apr, [facility] [address] [id number] [address] [place] [address], [place] [address] Apr, [facility] [address] [id number] [address] [place] [address], [place] [address] Apr, [facility] [address] [id number] [address] [place] [address] Apr, [facility] [address] [id number] [address] [place] [address], [place] [address] Mar, [facility] [address] [id number] [address] [place] [address], [place] [address] Mar, [facility] [address] [id number] [address] [place] [address], [place] [address] Feb, [facility] [address] [id number] [address] [place] [address], [place] [address] Feb, [facility] [address] [id number] [address] [place] [address], [place] [address] Jan, [facility] [address] [id number] [address] [place] [address], [place] [address] Jan, [facility] [address] [id number] [address] [place] [address], [place] [address] Jan, [facility] [address] [id number] [address] [place] [address], [place] [address] Jan, [facility] [address] [id number] [address] [place] [address], [place] [address] Jan, [facility] [address] [id number] [address] [place] [address], [place] [address] Dec, [facility] [address] [id number] [address] [place] [address], [place] [address] Dec, [facility] [address] [id number] [address] [place] [address], [place] [address] Dec, [facility] [address] [id number] [address] [place] [address], [place] [address] Dec, [facility] [address] [id number] [address] [place] [address], [place] [address] Dec, [facility] [address] [id number] [address] [place] [address], [place] [address] Dec, [facility] [address] [id number] [address] [place] [address], [place] [address] Dec, [facility] [address] [id number] [address] [place] [address], [place] [address] Dec, [facility] [address] [id number] [address] [place] [address], [place] [address] Dec, [facility] [address] [id number] [address] [place] [address], [place] [address] November, [facility] [address] [id number] [address] [place] [address], [place] [address] November, [facility] [address] [id number] [address] [place] [address], [place] [address] November, [facility] [address] [id number] [address] [place] [address], [place] [address] November, [facility] [address] [id number] [address] [place] [address], [place] [address] November, [facility] [address] [id number] [address] [place] [address], [place] [address] November, [facility] [address] [id number] [address] [place] [address], [place] [address] November, [facility] [address] [id number] [address] [place] [address], [place] [address] November, [facility] [address] [id number] [address] [place] [address], [place] [address] November, [facility] [address] [id number] [address] [place] [address], [place] [address] November, [facility] [address] [id number] [address] [place] [address], [place] [address] Aug, [facility] [address] [id number] [address] [place] [address], [place] [address] Aug, [facility] [address] [id number] [address] [place] [address], [place] [address] Mar, [facility] [address] [id number] [address] [place] [address], [place] [address] Feb, [facility] [address] [id number] [address] [place] [address], [place] [address] Jan, [facility] [address] [id number] [address] [place] [address], [place] [address] Jan, [facility] [address] [id number] [address] [place] [address], [place] [address] Jan, [facility] [address] [id number] [address] [place] [address], [place] [address] Jan, [facility] [address] [id number] [address] [place] [address], [place] [address] Dec, [facility] [address] [id number] [address] [place] [address], [place] [address] Oct, [facility] [address] [id number] [address] [place] [address], [place] [address] 28 Aug, 2012 [facility] [address] [id number] [address] [place] [address], [place] [address] 27 Aug, 2012 [facility] [address] [id number] [address] [place] [address], [place] [address] Aug, [facility] [address] [id number] [address] [place] [address], [place] [address] Aug, [facility] [address] [id number] [address] [place] [address], [place] [address] 18 Aug, 2012 [facility] [address] [id number] [address] [place] [address], [place] [address] 15 Aug, 2012 [facility] [address] [id number] [address] [place] [address], [place] [address] 14 Aug, 2012 [facility] [address] [id number] [address] [place] [address], [place] [address] 12 Aug, 2012 [facility] [address] [id number] [address] [place] [address], [place] [address] Sep, [facility] [address] [id number] [address] [place] [address], [place] [address] Jul, [facility] [address] [id number] [address] [place] [address], [place] [address] Jul, [facility] [address] [id number] [address] [place] [address], [place] [address] Jun, [facility] [address] [id number] [address] [place] [address] Jun, [facility] [address] [id number] [address] [place] [address] Jun, [facility] [address] [id number] [address] [place] [address] May, [facility] [address] [id number] [address] [place] [address] May, [facility] [address] [id number] [address] [place] [address] May, [facility] [address] [id number] [address] [place] [address] Apr, [facility] [address] [id number] [address] [place] [address] Apr, [facility] [address] [id number] [address] [place] [address] Apr, [facility] [address] [id number] [address] [place] [address] Feb, [facility] [address] [id number] [address] [place] [address] Jan, [facility] [address] [id number] [address] [place] [address] Dec, IMMUNIZATIONS No Known Immunizations SOCIAL HISTORY Never Assessed REASON FOR VISIT PLAN OF CARE VITAL SIGNS Height 64 in 2014-06-18 Weight 163.7 lbs 2014-06-18 Temperature 98.6 degrees Fahrenheit 2014-06-18 Heart Rate 86 bpm 2014-06-18 Blood pressure systolic 114 mmHg 2014-06-18 Blood pressure diastolic 55 mmHg 2014-06-18 MEDICATIONS No Known Medications RESULTS No Results PROCEDURES Procedure Date Ordered Result Body Site URINE-NO MICRO Jun 18, 2014 INSTRUCTIONS MEDICATIONS ADMINISTERED No Known Medications MEDICAL (GENERAL) HISTORY Type Description Date Medical History herpes Surgical History No Surgical history information Hospitalization History Childbirth only
--- OUTSIDE RECORDS SUMMARY | 2019-07-27 20:24 | XMS REPORT ---
Author Author Ya MAURER Organization [facility] Address [address] [place] [address] Care Team Providers Care Microarray Specialist Name Role Phone KIA MAURER Unavailable PROBLEMS Type Condition ICD9-CM Code FKU06-LM Code Onset Dates Condition S tatus SNOMED Code Problem History of anemia Z86.2 Active 27 0667476 Problem Herpes simplex vulvovaginitis A60.04 Active 64098979 Problem Irregular menses N92.6 Active 801 68813 ALLERGIES No Information ENCOUNTERS Encounter Location Date Diagnosis [facility] [id number] [place] [address] Aug, Strep throat J02.0 [facility] [id number] [place] [address] 14 Mar, 2018 Left wrist pain M25.532 [facility] [id number] [place] [address] 06 Mar, 2018 Acute nasopharyngitis (commo n cold) J00 ; Post-nasal drip R09.82 and Sore throat J02.9 [facility] [id number] [place] [address] Jan, [facility] [id number] [address] [place] [address] Dec, [place] [id number] [place] [address] Dec, History of anemia Z86.2 [facility] [id number] [address] [place] [address] Dec, Irregular menses N92.6 and S creening examination for sexually transmitted disease Z11.3 [place] [id number] [place] [address] Dec, Irregular menses N92.6 ; His tory of anemia Z86.2 and Screening examination for sexually transmitted disease Z11.3 [facility] [place] [id number] [place] [address] November, Herpes simplex vulvovaginiti s A60.04 [place] [address] [address] November, [facility] [place] [address] [address] 07 Mar, 2017 Knee strain, right, initial encounter S86.911A [place] [address] [address] 14 Aug, 2016 Pelvic pain R10.2 [place] [address] [address] 08 Aug, 2016 Dyspareunia in female N94.10 and control counseling Z30.09 [facility] IN [place] [address] [address] Jun, Gastroenteritis K52.9 and Ac bill moore's slough effusion of both middle ears H65.193 [place] [address] [address] Apr, Swelling of pharynx J39.2 [place] [id number] [place] [address] Jan, [place] [address] [address] Jan, [place] [address] [address] Dec, Routine gynecological examin ation Z01.419 ; Encounter for counseling regarding contraception Z30.9 and Encounter for initial prescription of contraceptive pills Z30.011 [facility] [address] [id number] [address] [place] [address], [place] [address] November, Contraceptive management V25 .9 [facility] [address] [id number] [address] [place] [address], [place] [address] 14 Oct, 2014 [facility] [address] [id number] [address] [place] [address], [place] [address] Oct, [facility] [address] [id number] [address] [place] [address], [place] [address] Aug, [facility] [address] [id number] [address] [place] [address], [place] [address] Aug, [facility] [address] [id number] [address] [place] [address], [place] [address] Jun, [facility] [address] [id number] [address] [place] [address], [place] [address] Jun, [facility] [address] [id number] [address] [place] [address], [place] [address] Jun, [facility] [address] [id number] [address] [place] [address], [place] [address] Jun, [facility] [address] [id number] [address] [place] [address], [place] [address] Jun, [facility] [address] [id number] [address] [place] [address], [place] [address] 15 Jun, 2014 [facility] [address] [id number] [address] [place] [address], [place] [address] 15 Jun, 2014 [facility] [address] [id number] [address] [place] [address], [place] [address] 15 Jun, 2014 [facility] [address] [id number] [address] [place] [address], [place] [address] 10 Jun, 2014 [facility] [address] [id number] [address] [place] [address] 08 Jun, 2014 [facility] [address] [id number] [address] [place] [address] Jun, [facility] [address] [id number] [address] [place] [address], [place] [address] May, [facility] [address] [id number] [address] [place] [address], [place] [address] May, [facility] [address] [id number] [address] [place] [address], [place] [address] May, [facility] [address] [id number] [address] [place] [address], [place] [address] May, [facility] [address] [id number] [address] [place] [address], [place] [address] Apr, [facility] [address] [id number] [address] [place] [address], [place] [address] Apr, [facility] [address] [id number] [address] [place] [address], [place] [address] Apr, [facility] [address] [id number] [address] [place] [address], [place] [address] Apr, [facility] [address] [id number] [address] [place] [address], [place] [address] Apr, [facility] [address] [id number] [address] [place] [address], [place] [address] Apr, [facility] [address] [id number] [address] [place] [address], [place] [address] Apr, [facility] [address] [id number] [address] [place] [address] Apr, [facility] [address] [id number] [address] [place] [address], [place] [address] Mar, [facility] [address] [id number] [address] [place] [address], [place] [address] Mar, [facility] [address] [id number] [address] [place] [address], [place] [address] Feb, [facility] [address] [id number] [address] [place] [address], [place] [address] Feb, [facility] [address] [id number] [address] [place] [address], [place] [address] Jan, [facility] [address] [id number] [address] [place] [address], [place] [address] Jan, [facility] [address] [id number] [address] [place] [address], [place] [address] Jan, [facility] [address] [id number] [address] [place] [address], [place] [address] Jan, [facility] [address] [id number] [address] [place] [address], [place] [address] Jan, [facility] [address] [id number] [address] [place] [address], [place] [address] Dec, [facility] [address] [id number] [address] [place] [address], [place] [address] Dec, [facility] [address] [id number] [address] [place] [address], [place] [address] Dec, [facility] [address] [id number] [address] [place] [address], [place] [address] Dec, [facility] [address] [id number] [address] [place] [address], [place] [address] Dec, [facility] [address] [id number] [address] [place] [address], [place] [address] Dec, [facility] [address] [id number] [address] [place] [address], [place] [address] Dec, [facility] [address] [id number] [address] [place] [address], [place] [address] Dec, [facility] [address] [id number] [address] [place] [address], [place] [address] Dec, [facility] [address] [id number] [address] [place] [address], [place] [address] November, [facility] [address] [id number] [address] [place] [address], [place] [address] November, [facility] [address] [id number] [address] [place] [address], [place] [address] November, [facility] [address] [id number] [address] [place] [address], [place] [address] November, [facility] [address] [id number] [address] [place] [address], [place] [address] November, [facility] [address] [id number] [address] [place] [address], [place] [address] November, [facility] [address] [id number] [address] [place] [address], [place] [address] November, [facility] [address] [id number] [address] [place] [address], [place] [address] November, [facility] [address] [id number] [address] [place] [address], [place] [address] November, [facility] [address] [id number] [address] [place] [address], [place] [address] November, [facility] [address] [id number] [address] [place] [address], [place] [address] Aug, [facility] [address] [id number] [address] [place] [address], [place] [address] Aug, [facility] [address] [id number] [address] [place] [address], [place] [address] Mar, [facility] [address] [id number] [address] [place] [address], [place] [address] Feb, [facility] [address] [id number] [address] [place] [address], [place] [address] Jan, [facility] [address] [id number] [address] [place] [address], [place] [address] Jan, [facility] [address] [id number] [address] [place] [address], [place] [address] Jan, [facility] [address] [id number] [address] [place] [address], [place] [address] Jan, [facility] [address] [id number] [address] [place] [address], [place] [address] Dec, [facility] [address] [id number] [address] [place] [address], [place] [address] Oct, [facility] [address] [id number] [address] [place] [address], [place] [address] 28 Aug, 2012 [facility] [address] [id number] [address] [place] [address], [place] [address] 27 Aug, 2012 [facility] [address] [id number] [address] [place] [address], [place] [address] Aug, [facility] [address] [id number] [address] [place] [address], [place] [address] Aug, [facility] [address] [id number] [address] [place] [address], [place] [address] 18 Aug, 2012 [facility] [address] [id number] [address] [place] [address], [place] [address] 15 Aug, 2012 [facility] [address] [id number] [address] [place] [address], [place] [address] 14 Aug, 2012 [facility] [address] [id number] [address] [place] [address], [place] [address] 12 Aug, 2012 [facility] [address] [id number] [address] [place] [address], [place] [address] Sep, [facility] [address] [id number] [address] [place] [address], [place] [address] Jul, [facility] [address] [id number] [address] [place] [address], [place] [address] Jul, [facility] [address] [id number] [address] [place] [address], [place] [address] Jun, [facility] [address] [id number] [address] [place] [address] Jun, [facility] [address] [id number] [address] [place] [address] Jun, [facility] [address] [id number] [address] [place] [address] May, [facility] [address] [id number] [address] [place] [address] May, [facility] [address] [id number] [address] [place] [address] May, [facility] [address] [id number] [address] [place] [address] Apr, [facility] [address] [id number] [address] [place] [address] Apr, [facility] [address] [id number] [address] [place] [address] Apr, [facility] [address] [id number] [address] [place] [address] Feb, [facility] [address] [id number] [address] [place] [address] Jan, [facility] [address] [id number] [address] [place] [address] Dec, IMMUNIZATIONS No Known Immunizations SOCIAL HISTORY Never Assessed REASON FOR VISIT PLAN OF CARE VITAL SIGNS Height 64 in 2014-07-09 Weight 169.1 lbs 2014-07-09 Temperature 97.5 degrees Fahrenheit 2014-07-09 Heart Rate 100 bpm 2014-07-09 Blood pressure systolic 123 mmHg 2014-07-09 Blood pressure diastolic 62 mmHg 2014-07-09 MEDICATIONS No Known Medications RESULTS No Results PROCEDURES Procedure Date Ordered Result Body Site URINE-NO MICRO Jul 09, 2014 INSTRUCTIONS MEDICATIONS ADMINISTERED No Known Medications MEDICAL (GENERAL) HISTORY Type Description Date Medical History herpes Surgical History No Surgical history information Hospitalization History Childbirth only
--- OUTSIDE RECORDS SUMMARY | 2019-07-27 20:24 | XMS REPORT ---
Author Author Ya CATALAN Organization [facility] Address [address] [place] [address] Care Team Providers Care Study Lead Name Role Phone HOSSEINYOEL SOARES Unavailable PROBLEMS Type Condition ICD9-CM Code JUO60-TI Code Onset Dates Condition S tatus SNOMED Code Problem History of anemia Z86.2 Active 27 1930440 Problem Herpes simplex vulvovaginitis A60.04 Active 37818488 Problem Irregular menses N92.6 Active 801 82633 ALLERGIES No Information ENCOUNTERS Encounter Location Date Diagnosis [facility] [address] [place] [id number] [place] [address] Aug, Strep throat J02.0 [facility] [id number] [place] [address] 14 Mar, 2018 Left wrist pain M25.532 [facility] [id number] [place] [address] 06 Mar, 2018 Acute nasopharyngitis (commo n cold) J00 ; Post-nasal drip R09.82 and Sore throat J02.9 [facility] [id number] [place] [address] Jan, [facility] [id number] [place] [address] Dec, [place] [address] [address] Dec, History of anemia Z86.2 [facility] [address] [place] [id number] [address] [place] [address] Dec, Irregular menses N92.6 and S creening examination for sexually transmitted disease Z11.3 [place] [address] [place] [id number] [place] [address] Dec, Irregular menses N92.6 ; His tory of anemia Z86.2 and Screening examination for sexually transmitted disease Z11.3 [facility] [place] [id number] [place] [address] November, Herpes simplex vulvovaginiti s A60.04 [place] [address] [address] November, [facility] [place] [address] [address] 07 Mar, 2017 Knee strain, right, initial encounter S86.911A [place] [address] [address] 14 Aug, 2016 Pelvic pain R10.[address] [address] 08 Aug, 2016 Dyspareunia in female N94.10 and control counseling Z30.09 [facility] IN [place] [address] [address] Jun, Gastroenteritis K52.9 and Ac [place] effusion of both middle ears H65.[address] [address] Apr, Swelling of pharynx J39.2 [place] [address] [place] [id number] [place] [address] Jan, [place] [address] [address] Jan, [place] [address] [address] Dec, Routine gynecological examin ation Z01.419 ; Encounter for counseling regarding contraception Z30.9 and Encounter for initial prescription of contraceptive pills Z30.011 [facility] [address] [id number] [address] [place] [address], [place] [address] November, Contraceptive management V25 .9 [facility] [address] [id number] [address] [place] [address], [place] [address] 14 Oct, 2014 [facility] [address] [id number] [address] [place] [address], [place] [address] Oct, [facility] [address] [id number] [address] [place] [address], [place] [address] Aug, [facility] [address] [id number] [address] [place] [address], [place] [address] Aug, [facility] [address] [id number] [address] [place] [address], [place] [address] Jun, [facility] [address] [id number] [address] [place] [address], [place] [address] Jun, [facility] [address] [id number] [address] [place] [address], [place] [address] Jun, [facility] [address] [id number] [address] [place] [address], [place] [address] Jun, [facility] [address] [id number] [address] [place] [address], [place] [address] Jun, [facility] [address] [id number] [address] [place] [address], [place] [address] 15 Jun, 2014 [facility] [address] [id number] [address] [place] [address], [place] [address] Jun, [facility] [address] [id number] [address] [place] [address], [place] [address] 15 Jun, 2014 [facility] [address] [id number] [address] [place] [address], [place] [address] Jun, [facility] [address] [id number] [address] [place] [address], [place] [address] 08 Jun, 2014 [facility] [address] [id number] [address] [address] Jun, [facility] [address] [id number] [address] [place] [address], [place] [address] May, [facility] [address] [id number] [address] [place] [address], [place] [address] May, [facility] [address] [id number] [address] [place] [address], [place] [address] May, [facility] [address] [id number] [address] [place] [address] May, [facility] [address] [id number] [address] [place] [address], [place] [address] Apr, [facility] [address] [id number] [address] [place] [address], [place] [address] Apr, [facility] [address] [id number] [address] [place] [address], [place] [address] Apr, [facility] [address] [id number] [address] [place] [address], [place] [address] Apr, [facility] [address] [id number] [address] [place] [address], [place] [address] Apr, [facility] [address] [id number] [address] [place] [address], [place] [address] Apr, [facility] [address] [id number] [address] [place] [address], [place] [address] Apr, [facility] [address] [id number] [address] [place] [address] Apr, [facility] [address] [id number] [address] [place] [address], [place] [address] Mar, [facility] [address] [id number] [address] [place] [address], [place] [address] Mar, [facility] [address] [id number] [address] [place] [address], [place] [address] Feb, [facility] [address] [id number] [facility] [place] [address] Feb, [facility] [address] [id number] [address] [place] [address], [place] [address] Jan, [facility] [address] [id number] [address] [place] [address], [place] [address] Jan, [facility] [address] [id number] [address] [place] [address], [place] [address] Jan, [facility] [address] [id number] [address] [place] [address], [place] [address] Jan, [facility] [address] [id number] [address] [place] [address], [place] [address] Jan, [facility] [address] [id number] [address] [place] [address], [place] [address] Dec, [facility] [address] [id number] [address] [place] [address], [place] [address] Dec, [facility] [address] [id number] [address] [place] [address], [place] [address] Dec, [facility] [address] [id number] [address] [place] [address], [place] [address] Dec, [facility] [address] [id number] [address] [place] [address], [place] [address] Dec, [facility] [address] [id number] [address] [place] [address], [place] [address] Dec, [facility] [address] [id number] [address] [place] [address], [place] [address] Dec, [facility] [address] [id number] [address] [place] [address], [place] [address] Dec, [facility] [address] [id number] [address] [place] [address], [place] [address] Dec, [facility] [address] [id number] [address] [place] [address], [place] [address] November, [facility] [address] [id number] [address] [place] [address], [place] [address] November, [facility] [address] [id number] [address] [place] [address], [place] [address] November, [facility] [address] [id number] [address] [place] [address], [place] [address] November, [facility] [address] [id number] [address] [place] [address], [place] [address] November, [facility] [address] [id number] [address] [place] [address], [place] [address] November, [facility] [address] [id number] [address] [place] [address], [place] [address] November, [facility] [address] [id number] [address] [place] [address], [place] [address] November, [facility] [address] [id number] [address] [place] [address], [place] [address] November, [facility] [address] [id number] [address] [place] [address], [place] [address] November, [facility] [address] [id number] [address] [place] [address], [place] [address] Aug, [facility] [address] [id number] [address] [place] [address], [place] [address] Aug, [facility] [address] [id number] [address] [place] [address], [place] [address] Mar, [facility] [address] [id number] [address] [place] [address], [place] [address] Feb, [facility] [address] [id number] [address] [place] [address], [place] [address] Jan, [facility] [address] [id number] [address] [place] [address], [place] [address] Jan, [facility] [address] [id number] [address] [place] [address], [place] [address] Jan, [facility] [address] [id number] [address] [place] [address], [place] [address] Jan, [facility] [address] [id number] [address] [place] [address], [place] [address] Dec, [facility] [address] [id number] [address] [place] [address], [place] [address] Oct, [facility] [address] [id number] [address] [place] [address], [place] [address] 28 Aug, 2012 [facility] [address] [id number] [address] [place] [address], [place] [address] 27 Aug, 2012 [facility] [address] [id number] [address] [place] [address], [place] [address] Aug, [facility] [address] [id number] [address] [place] [address], [place] [address] 22 Aug, 2012 [facility] [address] [id number] [address] [place] [address], [place] [address] 18 Aug, 2012 [facility] [address] [id number] [address] [place] [address], [place] [address] 15 Aug, 2012 [facility] [address] [id number] [address] [place] [address], [place] [address] 14 Aug, 2012 [facility] [address] [id number] [address] [place] [address], [place] [address] 12 Aug, 2012 [facility] [address] [id number] [address] [place] [address], [place] [address] Sep, [facility] [address] [id number] [address] [place] [address], [place] [address] Jul, [facility] [address] [id number] [address] [place] [address], [place] [address] Jul, [facility] [address] [id number] [address] [place] [address], [place] [address] Jun, [facility] [address] [id number] [address] [place] [address] Jun, [facility] [address] [id number] [address] [place] [address] Jun, [facility] [address] [id number] [address] [place] [address] May, [facility] [address] [id number] [address] [place] [address] May, [facility] [address] [id number] [address] [place] [address] May, [facility] [address] [id number] [address] [place] [address] Apr, [facility] [address] [id number] [address] [place] [address] Apr, [facility] [address] [id number] [address] [place] [address] Apr, [facility] [address] [id number] [address] [place] [address] Feb, [facility] [address] [id number] [address] [place] [address] Jan, [facility] [address] [id number] [address] [place] [address] Dec, IMMUNIZATIONS No Known Immunizations SOCIAL HISTORY Never Assessed REASON FOR VISIT PLAN OF CARE VITAL SIGNS Height 64 in 2014-07-24 Weight 172 lbs 2014-07-24 Temperature 97.4 degrees Fahrenheit 2014-07-24 Heart Rate 86 bpm 2014-07-24 Respiratory Rate 18 2014-07-24 Blood pressure systolic 120 mmHg 2014-07-24 Blood pressure diastolic 78 mmHg 2014-07-24 MEDICATIONS No Known Medications RESULTS No Results PROCEDURES Procedure Date Ordered Result Body Site URINE-NO MICRO Jul 24, 2014 INSTRUCTIONS MEDICATIONS ADMINISTERED No Known Medications MEDICAL (GENERAL) HISTORY Type Description Date Medical History herpes Surgical History No Surgical history information Hospitalization History Childbirth only
--- OUTSIDE RECORDS SUMMARY | 2019-07-27 20:24 | XMS REPORT ---
Author Author Ya Pierre Doctor Organization [facility] Address Unknown Phone Unavailable Care Team Providers Care Double Reamer Operator Name Role Phone Migration, Doctor Unavailable Unavailable PROBLEMS Type Condition ICD9-CM Code [id number] Code Onset Dates Condition S tatus SNOMED Code Problem History of anemia Z86.2 Active 27 9578181 Problem Herpes simplex vulvovaginitis A60.04 Active 18721340 Problem Irregular menses N92.6 Active 801 41609 ALLERGIES No Information ENCOUNTERS Encounter Location Date Diagnosis [facility] [address] [place] [place] [id number] [place] [address] 19 Aug, 2018 Strep throat J02.0 [facility] [address] [id number] [place] [address] 14 Mar, 2018 Left wrist pain M25.532 [facility] [id number] [place] [address] 06 Mar, 2018 Acute nasopharyngitis (commo n cold) J00 ; Post-nasal drip R09.82 and Sore throat J02.9 [facility] [address] [place] [address] Jan, [facility] [id number] [place] [address] Dec, [facility] [address] [place] [address] Dec, History of anemia Z86.2 [facility] [address] [id number] [address] [place] [address] Dec, Irregular menses N92.6 and S creening examination for sexually transmitted disease Z11.3 [facility] [id number] [place] [address] Dec, Irregular menses N92.6 ; His tory of anemia Z86.2 and Screening examination for sexually transmitted disease Z11.3 [facility] [place] [address] [address] November, Herpes simplex vulvovaginiti s A60.04 [place] [address] [address] November, [facility] [place] [address] [address] 07 Mar, 2017 Knee strain, right, initial encounter S86.911A [place] [address] [address] 14 Aug, 2016 Pelvic pain R10.2 [place] [address] [address] 08 Aug, 2016 Dyspareunia in female N94.10 and control counseling Z30.09 [facility] [place] [address] [address] 13 Jun, 2016 Gastroenteritis K52.9 and Ac [place] effusion of both middle ears H65.193 [place] [address] [address] Apr, Swelling of pharynx J39.2 [place] [address] [address] Jan, [place] [address] [address] Jan, [place] [address] [address] Dec, Routine gynecological examin ation Z01.419 ; Encounter for counseling regarding contraception Z30.9 and Encounter for initial prescription of contraceptive pills Z30.011 [place] [address] [address] November, Contraceptive management V25 .9 [facility] [address] [id number] [address] [place] [address], [place] [address] 14 Oct, 2014 [facility] [address] [id number] [address] [place] [address], [place] [address] Oct, [facility] [address] [id number] [address] [place] [address], [place] [address] Aug, [facility] [address] [id number] [address] [place] [address], [place] [address] Aug, [facility] [address] [id number] [address] [place] [address], [place] [address] Jun, [facility] [address] [id number] [address] [place] [address], [place] [address] Jun, [facility] [address] [id number] [address] [place] [address], [place] [address] Jun, [facility] [address] [id number] [address] [place] [address], [place] [address] Jun, [facility] [address] [id number] [address] [place] [address], [place] [address] Jun, [facility] [address] [id number] [address] [place] [address], [place] [address] Jun, [facility] [address] [id number] [address] [place] [address], [place] [address] Jun, [facility] [address] [id number] [address] [place] [address], [place] [address] Jun, [facility] [address] [id number] [address] [place] [address], [place] [address] Jun, [facility] [address] [id number] [address] [place] [address], [place] [address] Jun, [facility] [address] [id number] [address] [place] [address], [place] [address] Jun, [facility] [address] [id number] [address] [place] [address], [place] [address] May, [facility] [address] [id number] [address] [place] [address], [place] [address] May, [facility] [address] [id number] [address] [place] [address], [place] [address] May, [facility] [address] [id number] [address] [place] [address], [place] [address] May, [facility] [address] [id number] [address] [place] [address], [place] [address] Apr, [facility] [address] [id number] [address] [place] [address], [place] [address] Apr, [facility] [address] [id number] [address] [place] [address], [place] [address] Apr, [facility] [address] [id number] [address] [place] [address], [place] [address] Apr, [facility] [address] [id number] [address] [place] [address], [place] [address] Apr, [facility] [address] [id number] [address] [place] [address], [place] [address] Apr, [facility] [address] [id number] [address] [place] [address], [place] [address] Apr, [facility] [address] [id number] [address] [place] [address], [place] [address] Apr, [facility] [address] [id number] [address] [place] [address], [place] [address] Mar, [facility] [address] [id number] [address] [place] [address], [place] [address] Mar, [facility] [address] [id number] [address] [place] [address], [place] [address] Feb, [facility] [address] [id number] [address] [place] [address], [place] [address] Feb, [facility] [place] [facility] [address] [id number] [facility] [place] [address] Jan, [facility] [address] [id number] [facility] [place] [address] Jan, [facility] [address] [id number] [facility] [place] [address] Jan, [facility] [place] [address] [id number] [facility] [place] [address] Jan, [facility] [address] [id number] [facility] [place] [address] Jan, [facility] [address] [id number] [address] [place] [address], [place] [address] Dec, [facility] [address] [id number] [address] [place] [address], [place] [address] Dec, [facility] [address] [id number] [address] [place] [address], [place] [address] Dec, [facility] [address] [id number] [address] [place] [address], [place] [address] Dec, [facility] [address] [id number] [address] [place] [address], [place] [address] Dec, [facility] [place] [facility] [address] [id number] [address] [place] [address], [place] [address] Dec, [facility] [address] [id number] [address] [place] [address], [place] [address] Dec, [facility] [address] [id number] [address] [place] [address], [place] [address] Dec, [facility] [address] [id number] [address] [place] [address], [place] [address] Dec, [facility] [address] [id number] [address] [place] [address], [place] [address] November, [facility] [place] [facility] [address] [id number] [address] [place] [address], [place] [address] November, [facility] [address] [id number] [facility] [address] November, [facility] [address] [id number] [address] [place] [address], [place] [address] November, [facility] [address] [id number] [facility] [place] [address] November, [facility] [address] [id number] [address] [place] [address], [place] [address] November, [facility] [address] [id number] [address] [place] [address], [place] [address] November, [facility] [address] [id number] [address] [place] [address], [place] [address] November, [facility] [address] [id number] [address] [place] [address], [place] [address] November, [facility] [address] [id number] [address] [place] [address], [place] [address] November, [facility] [address] [id number] [address] [place] [address], [place] [address] Aug, [facility] [address] [id number] [address] [place] [address], [place] [address] Aug, [facility] [address] [id number] [address] [place] [address], [place] [address] Mar, [facility] [address] [id number] [address] [place] [address], [place] [address] Feb, [facility] [address] [id number] [address] [place] [address], [place] [address] Jan, [facility] [facility] [address] [id number] [address] [place] [address], [place] [address] Jan, [facility] [address] [id number] [address] [place] [address], [place] [address] Jan, [facility] [address] [id number] [address] [place] [address] Jan, [facility] [address] [id number] [address] [place] [address], [place] [address] Dec, [facility] [address] [id number] [address] [place] [address], [place] [address] 15 Oct, 2012 [facility] [address] [id number] [address] [place] [address], [place] [address] 28 Aug, 2012 [facility] [address] [id number] [address] [place] [address], [place] [address] 27 Aug, 2012 [facility] [address] [id number] [address] [place] [address], [place] [address] 26 Aug, 2012 [facility] [address] [id number] [address] [place] [address], [place] [address] 22 Aug, 2012 [facility] [address] [id number] [address] [place] [address], [place] [address] 18 Aug, 2012 [facility] [address] [id number] [address] [place] [address], [place] [address] 15 Aug, 2012 [facility] [address] [id number] [address] [place] [address], [place] [address] 14 Aug, 2012 [facility] [address] [id number] [address] [place] [address], [place] [address] 12 Aug, 2012 [facility] [address] [id number] [address] [place] [address], [place] [address] Sep, [facility] [address] [id number] [address] [place] [address], [place] [address] Jul, [facility] [address] [id number] [address] [place] [address], [place] [address] Jul, [facility] [address] [id number] [address] [place] [address], [place] [address] 08 Jun, 2011 [facility] [address] [id number] [address] [place] [address], [place] [address] Jun, [facility] [address] [id number] [address] [place] [address] Jun, [facility] [address] [id number] [address] [place] [address] May, [facility] [address] [id number] [address] [place] [address] May, [facility] [address] [id number] [address] [place] [address] May, [facility] [address] [id number] [address] [place] [address] Apr, [facility] [address] [id number] [address] [place] [address] Apr, [facility] [address] [id number] [address] [place] [address] Apr, [facility] [address] [id number] [address] [place] [address] Feb, [facility] [address] [id number] [address] [place] [address] Jan, [facility] [address] [id number] [address] [place] [address] Dec, IMMUNIZATIONS No Known Immunizations SOCIAL HISTORY Never Assessed REASON FOR [place] [place] VITAL SIGNS MEDICATIONS Medication Instructions Dosage Frequency Start Date End Date Duration S tatus Acyclovir 400 mg take 1 tablet (400 mg) by oral route 2 times per day Jun, Active Ferrous Sulfate 325 mg (65 mg iron) 1 tablet by Oral r oute 2 times per day May, Active Bactroban 2 % 1 jaye by Topical route 2 times per day f or 14 day(s) Mar, Active Metronidazole 500 mg 1 tablet by Oral route 2 times pe r day for 7 days Jan, Active Zovirax 5 % apply 1 Application to the affected area(s) by Topical route 5 times per day for 4 days Aug, Act serenity Amoxicillin 400 mg/5 mL take 7 millilite rs by Oral route 3 times per day for 7 days May, Active Nitrofurantoin Macrocrystal 100 mg 1 cap alejandro by Oral route 2 times per day for 7 day(s) November, Active RESULTS No Results PROCEDURES No Known procedures INSTRUCTIONS MEDICATIONS ADMINISTERED No Known Medications MEDICAL (GENERAL) HISTORY Type Description Date Medical History herpes Surgical History No Surgical history information Hospitalization History Childbirth only
--- OUTSIDE RECORDS SUMMARY | 2019-07-27 20:24 | XMS REPORT ---
Author Author Ya MAURER Organization [facility] Address [address] [place] [address] Care Team Providers Care Electroplating Sales Representative Name Role Phone KIA MAURER Unavailable PROBLEMS Type Condition ICD9-CM Code ULE83-GD Code Onset Dates Condition S tatus SNOMED Code Problem History of anemia Z86.2 Active 27 3717648 Problem Herpes simplex vulvovaginitis A60.04 Active 19767714 Problem Irregular menses N92.6 Active 801 77252 ALLERGIES No Information ENCOUNTERS Encounter Location Date Diagnosis [facility] [address] [id number] [address] [place] [address] Aug, Strep throat J02.0 [facility] [address] [id number] [address] [place] [id number] 14 Mar, 2018 Left wrist pain M25.532 [facility] [id number] [address] [place] [id number] 06 Mar, 2018 Acute nasopharyngitis (commo n cold) J00 ; Post-nasal drip R09.82 and Sore throat J02.9 [facility] [id number] [place] [address] Jan, [facility] [address] [id number] [address] [place] [address] Dec, [place] [id number] [place] [address] Dec, History of anemia Z86.2 [facility] [address] [id number] [address] [place] [address] Dec, Irregular menses N92.6 and S creening examination for sexually transmitted disease Z11.3 [place] [id number] [place] [address] Dec, Irregular menses N92.6 ; His tory of anemia Z86.2 and Screening examination for sexually transmitted disease Z11.3 [facility] [place] [id number] [place] [address] November, Herpes simplex vulvovaginiti s A60.04 [place] [address] [address] November, [facility] [place] [address] [id number] 07 Mar, 2017 Knee strain, right, initial encounter S86.911A [place] [address] [address] 14 Aug, 2016 Pelvic pain R10.2 [place] [address] [address] 08 Aug, 2016 Dyspareunia in female N94.10 and control counseling Z30.09 [facility] [place] [address] [address] Jun, Gastroenteritis K52.9 and Ac muckleshoot effusion of both middle ears H65.193 [place] [address] [address] Apr, Swelling of pharynx J39.2 [place] [id number] [place] [address] Jan, [place] [address] [address] Jan, [place] [address] [address] Dec, Routine gynecological examin ation Z01.419 ; Encounter for counseling regarding contraception Z30.9 and Encounter for initial prescription of contraceptive pills Z30.011 [facility] [address] [id number] [address] [place] [address], [place] [address] November, Contraceptive management V25 .9 [facility] [address] [id number] [address] [place] [address], [place] [address] 14 Oct, 2014 [facility] [address] [id number] [address] [place] [address], [place] [address] Oct, [facility] [address] [id number] [address] [place] [address], [place] [address] Aug, [facility] [address] [id number] [address] [place] [address], [place] [address] Aug, [facility] [address] [id number] [address] [place] [address], [place] [address] Jun, [facility] [address] [id number] [address] [place] [address], [place] [address] Jun, [facility] [address] [id number] [address] [place] [address], [place] [address] Jun, [facility] [address] [id number] [address] [place] [address], [place] [address] Jun, [facility] [address] [id number] [address] [place] [address], [place] [address] Jun, [facility] [address] [id number] [address] [place] [address], [place] [address] 15 Jun, 2014 [facility] [address] [id number] [address] [place] [address], [place] [address] 15 Jun, 2014 [facility] [address] [id number] [address] [place] [address], [place] [address] 15 Jun, 2014 [facility] [address] [id number] [address] [place] [address], [place] [address] 10 Jun, 2014 [facility] [address] [id number] [address] [place] [id number] 08 Jun, 2014 [facility] [address] [id number] [address] [place] [address] Jun, [facility] [address] [id number] [address] [place] [address], [place] [address] May, [facility] [address] [id number] [address] [place] [address], [place] [address] May, [facility] [address] [id number] [address] [place] [address], [place] [address] May, [facility] [address] [id number] [address] [place] [address], [place] [address] May, [facility] [address] [id number] [address] [place] [address], [place] [address] Apr, [facility] [address] [id number] [address] [place] [address], [place] [address] Apr, [facility] [address] [id number] [address] [place] [address], [place] [address] Apr, [facility] [address] [id number] [address] [place] [address], [place] [address] Apr, [facility] [address] [id number] [address] [place] [address], [place] [address] Apr, [facility] [address] [id number] [address] [place] [address], [place] [address] Apr, [facility] [address] [id number] [address] [place] [address], [place] [address] Apr, [facility] [address] [id number] [address] [place] [address] Apr, [facility] [address] [id number] [address] [place] [address], [place] [address] Mar, [facility] [address] [id number] [address] [place] [address], [place] [address] Mar, [facility] [address] [id number] [address] [place] [address], [place] [address] Feb, [facility] [address] [id number] [address] [place] [address], [place] [address] Feb, [facility] [address] [id number] [address] [place] [address], [place] [address] Jan, [facility] [address] [id number] [address] [place] [address], [place] [address] Jan, [facility] [address] [id number] [address] [place] [address], [place] [address] Jan, [facility] [address] [id number] [address] [place] [address], [place] [address] Jan, [facility] [address] [id number] [address] [place] [address], [place] [address] Jan, [facility] [address] [id number] [address] [place] [address], [place] [address] Dec, [facility] [address] [id number] [address] [place] [address], [place] [address] Dec, [facility] [address] [id number] [address] [place] [address], [place] [address] Dec, [facility] [address] [id number] [address] [place] [address], [place] [address] Dec, [facility] [address] [id number] [address] [place] [address], [place] [address] Dec, [facility] [address] [id number] [address] [place] [address], [place] [address] Dec, [facility] [address] [id number] [address] [place] [address], [place] [address] Dec, [facility] [address] [id number] [address] [place] [address], [place] [address] Dec, [facility] [address] [id number] [address] [place] [address], [place] [address] Dec, [facility] [address] [id number] [address] [place] [address], [place] [address] November, [facility] [address] [id number] [address] [place] [address], [place] [address] November, [facility] [address] [id number] [address] [place] [address], [place] [address] November, [facility] [address] [id number] [address] [place] [address], [place] [address] November, [facility] [address] [id number] [address] [place] [address], [place] [address] November, [facility] [address] [id number] [address] [place] [address], [place] [address] November, [facility] [address] [id number] [address] [place] [address], [place] [address] November, [facility] [address] [id number] [address] [place] [address], [place] [address] November, [facility] [address] [id number] [address] [place] [address], [place] [address] November, [facility] [address] [id number] [address] [place] [address], [place] [address] November, [facility] [address] [id number] [address] [place] [address], [place] [address] Aug, [facility] [address] [id number] [address] [place] [address], [place] [address] Aug, [facility] [address] [id number] [address] [place] [address], [place] [address] Mar, [facility] [address] [id number] [address] [place] [address], [place] [address] Feb, [facility] [address] [id number] [address] [place] [address], [place] [address] Jan, [facility] [address] [id number] [address] [place] [address], [place] [address] Jan, [facility] [address] [id number] [address] [place] [address], [place] [address] Jan, [facility] [address] [id number] [address] [place] [address], [place] [address] Jan, [facility] [address] [id number] [address] [place] [address], [place] [address] Dec, [facility] [address] [id number] [address] [place] [address], [place] [address] Oct, [facility] [address] [id number] [address] [place] [address], [place] [address] 28 Aug, 2012 [facility] [address] [id number] [address] [place] [address], [place] [address] 27 Aug, 2012 [facility] [address] [id number] [address] [place] [address], [place] [address] Aug, [facility] [address] [id number] [address] [place] [address], [place] [address] Aug, [facility] [address] [id number] [address] [place] [address], [place] [address] 18 Aug, 2012 [facility] [address] [id number] [address] [place] [address], [place] [address] 15 Aug, 2012 [facility] [address] [id number] [address] [place] [address], [place] [address] 14 Aug, 2012 [facility] [address] [id number] [address] [place] [address], [place] [address] 12 Aug, 2012 [facility] [address] [id number] [address] [place] [address], [place] [address] Sep, [facility] [address] [id number] [address] [place] [address], [place] [address] Jul, [facility] [address] [id number] [address] [place] [address], [place] [address] Jul, [facility] [address] [id number] [address] [place] [address], [place] [address] Jun, [facility] [address] [id number] [address] [place] [address] Jun, [facility] [address] [id number] [address] [place] [address] Jun, [facility] [address] [id number] [address] [place] [address] May, [facility] [address] [id number] [address] [place] [address] May, [facility] [address] [id number] [address] [place] [address] May, [facility] [address] [id number] [address] [place] [address] Apr, [facility] [address] [id number] [address] [place] [address] Apr, [facility] [address] [id number] [address] [place] [address] Apr, [facility] [address] [id number] [address] [place] [address] Feb, [facility] [address] [id number] [address] [place] [address] Jan, [facility] [address] [id number] [address] [place] [address] Dec, IMMUNIZATIONS No Known Immunizations SOCIAL HISTORY Never Assessed REASON FOR VISIT PLAN OF CARE VITAL SIGNS MEDICATIONS No Known Medications RESULTS No Results PROCEDURES No Known procedures INSTRUCTIONS MEDICATIONS ADMINISTERED No Known Medications MEDICAL (GENERAL) HISTORY Type Description Date Medical History herpes Surgical History No Surgical history information Hospitalization History Childbirth only
--- OUTSIDE RECORDS SUMMARY | 2019-07-27 20:25 | XMS REPORT ---
Author Author Ya MAURER Organization [facility] Address [address] [place] [address] Care Team Providers Care Equity Structurer Name Role Phone KIA MAURER Unavailable PROBLEMS Type Condition ICD9-CM Code [id number] Code Onset Dates Condition S tatus SNOMED Code Problem Herpes simplex vulvovaginitis A60.04 Active 37988502 Problem History of anemia Z86.2 Active 27 3837829 Problem Irregular menses N92.6 Active 801 33640 ALLERGIES No Information ENCOUNTERS Encounter Location Date Diagnosis [place] [address] [address] Jan, [place] [address] [address] Dec, [place] [address] [address] Dec, History of anemia Z86.2 [place] [address] [address] [place] [id number] [place] [address] Dec, Irregular menses N92.6 and S creening examination for sexually transmitted disease Z11.3 [place] [address] [address] [place] [id number] [address] [place] [address] Dec, Irregular menses N92.6 ; His tory of anemia Z86.2 and Screening examination for sexually transmitted disease Z11.3 [facility] [address] [place] [id number] [address] [place] [address] November, Herpes simplex vulvovaginiti s A60.04 [facility] [address] [place] [id number] [address] [place] [address] November, [facility] [address] [place] [id number] [place] [address] 07 Mar, 2017 Knee strain, right, initial encounter S86.911A [place] [address] [address] 14 Aug, 2016 Pelvic pain R10.2 [place] [address] [address] 08 Aug, 2016 Dyspareunia in female N94.10 and control counseling Z30.09 [facility] [address] [place] [id number] [address] [place] [address] 13 Jun, 2016 Gastroenteritis K52.9 and Ac m[place] effusion of both middle ears H65.193 [place] [address] [address] 18 Apr, 2016 Swelling of pharynx J39.2 [place] [address] [address] 20 Jan, 2016 [place] [address] [address] 08 Jan, 2016 [place] [address] [address] 29 Dec, 2015 Routine gynecological examin ation Z01.419 ; Encounter for counseling regarding contraception Z30.9 and Encounter for initial prescription of contraceptive pills Z30.011 [place] [address] [address] [place] [id number] [address] [place] [address] November, Contraceptive management V25 .9 [place] [address] [address] [place] [id number] [address] [place] [address] Oct, [place] [address] [address] Oct, [place] [address] [address] [place] [id number] [address] [place] [address] 03 Aug, 2014 [place] [address] [address] Aug, [facility] [address] [id number] [address] [place] [address], [place] [address] Jun, [facility] [address] [id number] [address] [place] [address], [place] [address] Jun, [facility] [address] [id number] [address] [place] [address], [place] [address] Jun, [facility] [address] [id number] [address] [place] [address], [place] [address] Jun, [facility] [address] [id number] [address] [place] [address], [place] [address] Jun, [facility] [address] [id number] [address] [place] [address], [place] [address] Jun, [facility] [address] [id number] [address] [place] [address], [place] [address] Jun, [facility] [address] [id number] [address] [place] [address], [place] [address] Jun, [facility] [address] [id number] [address] [place] [address], [place] [address] Jun, [facility] [address] [id number] [address] [place] [address], [place] [address] Jun, [facility] [address] [id number] [address] [place] [address], [place] [address] Jun, [facility] [address] [id number] [address] [place] [address], [place] [address] May, [facility] [address] [id number] [address] [place] [address], [place] [address] May, [facility] [address] [id number] [address] [place] [address], [place] [address] May, [facility] [address] [id number] [address] [place] [address], [place] [address] May, [facility] [address] [id number] [address] [place] [address], [place] [address] Apr, [facility] [address] [id number] [address] [place] [address], [place] [address] Apr, [facility] [address] [id number] [address] [place] [address], [place] [address] Apr, [facility] [address] [id number] [address] [place] [address], [place] [address] Apr, [facility] [address] [id number] [address] [place] [address], [place] [address] Apr, [facility] [address] [id number] [address] [place] [address], [place] [address] Apr, [facility] [address] [id number] [address] [place] [address], [place] [address] Apr, [facility] [address] [id number] [address] [place] [address], [place] [address] Apr, [facility] [address] [id number] [address] [place] [address], [place] [address] Mar, [facility] [address] [id number] [address] [place] [address], [place] [address] Mar, [facility] [address] [id number] [address] [place] [address], [place] [address] Feb, [facility] [address] [id number] [address] [place] [address], [place] [address] Feb, [facility] [address] [id number] [address] [place] [address], [place] [address] Jan, [facility] [address] [id number] [address] [place] [address], [place] [address] Jan, [facility] [address] [id number] [address] [place] [address], [place] [address] Jan, [facility] [address] [id number] [address] [place] [address], [place] [address] Jan, [facility] [address] [id number] [address] [place] [address], [place] [address] Jan, [facility] [address] [id number] [address] [place] [address], [place] [address] Dec, [facility] [address] [id number] [address] [place] [address], [place] [address] Dec, [facility] [address] [id number] [address] [place] [address], [place] [address] Dec, [facility] [address] [id number] [address] [place] [address], [place] [address] Dec, [facility] [address] [id number] [address] [place] [address], [place] [address] Dec, [facility] [address] [id number] [address] [place] [address], [place] [address] Dec, [facility] [address] [id number] [address] [place] [address], [place] [address] Dec, [facility] [address] [id number] [address] [place] [address], [place] [address] Dec, [facility] [address] [id number] [address] [place] [address], [place] [address] Dec, [facility] [address] [id number] [address] [place] [address], [place] [address] November, [facility] [address] [id number] [address] [place] [address], [place] [address] November, [facility] [address] [id number] [address] [place] [address], [place] [address] November, [facility] [address] [id number] [address] [place] [address], [place] [address] November, [facility] [address] [id number] [address] [place] [address], [place] [address] November, [facility] [address] [id number] [address] [place] [address], [place] [address] November, [facility] [address] [id number] [address] [place] [address], [place] [address] November, [facility] [address] [id number] [address] [place] [address], [place] [address] November, [facility] [address] [id number] [address] [place] [address], [place] [address] November, [facility] [address] [id number] [address] [place] [address], [place] [address] November, [facility] [address] [id number] [address] [place] [address], [place] [address] Aug, [facility] [address] [id number] [address] [place] [address], [place] [address] Aug, [facility] [address] [id number] [address] [place] [address], [place] [address] Mar, [facility] [address] [id number] [address] [place] [address], [place] [address] Feb, [facility] [address] [id number] [address] [place] [address], [place] [address] Jan, [facility] [address] [id number] [address] [place] [address], [place] [address] Jan, [facility] [address] [id number] [address] [place] [address], [place] [address] Jan, [facility] [address] [id number] [address] [place] [address], [place] [address] Jan, [facility] [address] [id number] [address] [place] [address], [place] [address] Dec, [facility] [address] [id number] [address] [place] [address], [place] [address] Oct, [facility] [address] [id number] [address] [place] [address], [place] [address] Aug, [facility] [address] [id number] [address] [place] [address], [place] [address] 27 Aug, 2012 [facility] [address] [id number] [address] [place] [address], [place] [address] 26 Aug, 2012 [facility] [address] [id number] [address] [place] [address], [place] [address] Aug, [facility] [address] [id number] [address] [place] [address], [place] [address] 18 Aug, 2012 [facility] [address] [id number] [address] [place] [address], [place] [address] 15 Aug, 2012 [facility] [address] [id number] [address] [place] [address], [place] [address] 14 Aug, 2012 [facility] [address] [id number] [address] [place] [address], [place] [address] Aug, [facility] [address] [id number] [address] [place] [address], [place] [address] Sep, [facility] [address] [id number] [address] [place] [address], [place] [address] Jul, [facility] [address] [id number] [address] [place] [address], [place] [address] Jul, [facility] [address] [id number] [address] [place] [address], [place] [address] Jun, [facility] [address] [id number] [address] [place] [address], [place] [address] Jun, [facility] [address] [id number] [address] [place] [address], [place] [address] Jun, [facility] [address] [id number] [address] [place] [address], [place] [address] 30 May, 2011 [facility] [address] [id number] [address] [place] [address], [place] [address] 16 May, 2011 [facility] [address] [id number] [address] [place] [address] May, [facility] [address] [facility] [id number] [address] [place] [address] Apr, [facility] [address] [facility] [id number] [address] [place] [address] Apr, [facility] [address] [facility] [id number] [address] [place] [address] Apr, [facility] [address] [facility] [id number] [address] [place] [address] Feb, [facility] [address] [facility] [id number] [address] [place] [address] Jan, [facility] [address] [facility] [id number] [address] [place] [address] Dec, IMMUNIZATIONS No Known Immunizations SOCIAL HISTORY Never Assessed REASON FOR VISIT Requests return call PLAN OF CARE VITAL SIGNS MEDICATIONS Unknown Medications RESULTS No Results PROCEDURES No Known procedures INSTRUCTIONS MEDICATIONS ADMINISTERED No Known Medications MEDICAL (GENERAL) HISTORY Type Description Date Medical History herpes Hospitalization History Childbirth only
--- OUTSIDE RECORDS SUMMARY | 2019-07-27 20:25 | XMS REPORT ---
Author Author Ya CHENEY Organization [facility] Address [address] [place] [address] Care Team Providers Care Dean Of Student Services Name Role Phone BLUE CHENEY Unavailable PROBLEMS Type Condition ICD9-CM Code FCF82-LK Code Onset Dates Condition S tatus SNOMED Code Problem Routine gynecological examination Z01.419 Active 708641662 Problem Encounter for counseling regarding contraception Z 30.9 Active 38147574 Problem Encounter for initial prescription of contraceptive pills Z30.011 Active 64365711 ALLERGIES Substance Reaction Event Type Date Status Codeine Phosphate Hives Drug Allergy Jun, Active SOCIAL HISTORY No smoking Hx information available PLAN OF CARE Activity Details Follow Up prn Reason: VITAL SIGNS Height 64 in 2016-07-07 Weight 174.2 lbs 2016-07-07 Temperature 97.3 degrees Fahrenheit 2016-07-07 Heart Rate 88 bpm 2016-07-07 Respiratory Rate 20 2016-07-07 BMI 29.90 kg/m2 2016-07-07 Blood pressure systolic 100 mmHg 2016-07-07 Blood pressure diastolic 62 mmHg 2016-07-07 MEDICATIONS Medication Instructions Dosage Frequency Start Date End Date Duration S tatus PredniSONE 20 MG Orally Once a day 2 tablet 24h Jun, Jun, 5 days Active Zofran ODT 4 MG Orally every 8 hrs 1 tablet on the tongue and al low to dissolve 8h Jun, 5 days Active Ferrous Sulfate 325 mg (65 mg iron) 1 tablet by Oral r oute 2 times per day May, Active RESULTS No Results PROCEDURES Procedure Date Ordered Related Diagnosis Body Site Office Visit, Est Pt., Level 3 Jul 07, 2016 TORADOL (IM) 60 MG/2ML (UP TO 15 MG) Jul 07, 2016 ZOFRAN (IM) 2 MG/ML (PER 1 MG) 40 MG/20 ML Jul 07, 2016 THER/PROPH/DIAG INJ, SC/IM Jul 07, 2016 IMMUNIZATIONS Vaccine Route Administration Date Status TORADOL (IM) 60 MG/2ML (UP TO 15 MG) IM Intramuscular Jul 07 16 Administered ZOFRAN (IM) 2 MG/ML (PER 1 MG) 40 MG/20 ML IM Intramuscular Jul 07, 2016 Administered
--- OUTSIDE RECORDS SUMMARY | 2019-07-27 20:25 | XMS REPORT ---
Author Author Ya SPENCE NA [facility] Organization [facility] Address [address] [place] [address] Care Team Providers Care Production Welder Name Role Phone RENAE SPENCE Unavailable PROBLEMS Type Condition ICD9-CM Code SPC69-GJ Code Onset Dates Condition S tatus SNOMED Code Problem Herpes simplex vulvovaginitis A60.04 Active 85314520 Problem History of anemia Z86.2 Active 27 [id number] Problem Irregular menses N92.6 Active 801 72857 ALLERGIES Substance Reaction Event Type Date Status Codeine Phosphate Hives Drug Allergy Mar, Active ENCOUNTERS Encounter Location Date Diagnosis [facility] [address] [id number] [address] [place] [address] Mar, Left wrist pain M25.532 [facility] [address] [id number] [address] [place] [address] Mar, Acute nasopharyngitis (commo n cold) J00 ; Post-nasal drip R09.82 and Sore throat J02.9 [facility] [address] [id number] [address] [place] [phone] Jan, [facility] [id number] [place] [address] Dec, [facility] [address] [id number] [address] [place] [address] Dec, History of anemia Z86.2 [facility] [address] [id number] [address] [place] [address] Dec, Irregular menses N92.6 and S creening examination for sexually transmitted disease Z11.3 [facility] [address] [id number] [address] [place] [id number] Dec, Irregular menses N92.6 ; His tory of anemia Z86.2 and Screening examination for sexually transmitted disease Z11.3 [facility] [place] [id number] [address] [place] [id number] November, Herpes simplex vulvovaginiti s A60.04 [place] [address] [id number] [address] [place] [address] November, [facility] [place] [address] [address] 07 Mar, 2017 Knee strain, right, initial encounter S86.911A [place] [address] [address] 14 Aug, 2016 Pelvic pain R10.2 [place] [address] [address] 08 Aug, 2016 Dyspareunia in female N94.10 and control counseling Z30.09 [place] [id number] [place] [address] Jun, Gastroenteritis K52.9 and Ac tanacross effusion of both middle ears H65.193 [place] [address] [id number] [place] [id number] Apr, Swelling of pharynx J39.2 [place] [id number] [place] [id number] Jan, [place] [address] [address] Jan, [place] [address] [address] Dec, Routine gynecological examin ation Z01.419 ; Encounter for counseling regarding contraception Z30.9 and Encounter for initial prescription of contraceptive pills Z30.011 [place] [id number] [place] [id number] November, Contraceptive management V25 .9 [facility] [address] [id number] [address] [place] [address], [place] [address] Oct, [facility] [address] [id number] [address] [place] [address], [place] [address] Oct, [facility] [address] [id number] [address] [place] [address], [place] [address] Aug, [facility] [address] [id number] [address] [place] [address], [place] [address] Aug, [facility] [address] [id number] [address] [place] [address], [place] [address] Jun, [facility] [address] [id number] [address] [place] [address], [place] [address] Jun, [facility] [address] [id number] [address] [place] [address], [place] [address] Jun, [facility] [address] [id number] [address] [place] [address], [place] [address] Jun, [facility] [address] [id number] [address] [place] [address], [place] [address] Jun, [facility] [address] [id number] [address] [place] [address], [place] [address] Jun, [facility] [address] [id number] [address] [place] [address], [place] [address] Jun, [facility] [address] [id number] [address] [place] [address], [place] [address] Jun, [facility] [address] [id number] [address] [place] [address], [place] [address] Jun, [facility] [address] [id number] [address] [place] [address], [place] [address] Jun, [facility] [address] [id number] [address] [place] [address], [place] [address] Jun, [facility] [address] [id number] [address] [place] [address], [place] [address] May, [facility] [address] [id number] [address] [place] [address], [place] [address] May, [facility] [address] [id number] [address] [place] [address], [place] [address] May, [facility] [address] [id number] [address] [place] [address], [place] [address] May, [facility] [address] [id number] [address] [place] [address], [place] [address] Apr, [facility] [address] [id number] [address] [place] [address], [place] [address] Apr, [facility] [address] [id number] [address] [place] [address], [place] [address] Apr, [facility] [address] [id number] [address] [place] [address], [place] [address] Apr, [facility] [address] [id number] [address] [place] [address], [place] [address] Apr, [facility] [address] [id number] [address] [place] [address], [place] [address] Apr, [facility] [address] [id number] [address] [place] [address], [place] [address] Apr, [facility] [address] [id number] [address] [place] [address], [place] [address] Apr, [facility] [address] [id number] [address] [place] [address], [place] [address] Mar, [facility] [address] [id number] [address] [place] [address], [place] [address] Mar, [facility] [address] [id number] [address] [place] [address], [place] [address] Feb, [facility] [address] [id number] [address] [place] [address], [place] [address] Feb, [facility] [address] [id number] [address] [place] [address], [place] [address] Jan, [facility] [address] [id number] [address] [place] [address], [place] [address] Jan, [facility] [address] [id number] [address] [place] [address], [place] [address] Jan, [facility] [address] [id number] [address] [place] [address], [place] [address] Jan, [facility] [address] [id number] [address] [place] [address], [place] [address] Jan, [facility] [address] [id number] [address] [place] [address], [place] [address] Dec, [facility] [address] [id number] [address] [place] [address], [place] [address] Dec, [facility] [address] [id number] [address] [place] [address], [place] [address] Dec, [facility] [address] [id number] [address] [place] [address], [place] [address] Dec, [facility] [address] [id number] [address] [place] [address], [place] [address] Dec, [facility] [address] [id number] [address] [place] [address], [place] [address] Dec, [facility] [address] [id number] [address] [place] [address], [place] [address] Dec, [facility] [address] [id number] [address] [place] [address], [place] [address] Dec, [facility] [address] [id number] [address] [place] [address], [place] [address] Dec, [facility] [address] [id number] [address] [place] [address], [place] [address] November, [facility] [address] [id number] [address] [place] [address], [place] [address] November, [facility] [address] [id number] [address] [place] [address], [place] [address] November, [facility] [address] [id number] [address] [place] [address], [place] [address] November, [facility] [address] [id number] [address] [place] [address], [place] [address] November, [facility] [address] [id number] [address] [place] [address], [place] [address] November, [facility] [address] [id number] [address] [place] [address], [place] [address] November, [facility] [address] [id number] [address] [place] [address], [place] [address] November, [facility] [address] [id number] [address] [place] [address], [place] [address] November, [facility] [address] [id number] [address] [place] [address], [place] [address] November, [facility] [address] [id number] [address] [place] [address], [place] [address] Aug, [facility] [address] [id number] [address] [place] [address], [place] [address] Aug, [facility] [address] [id number] [address] [place] [address], [place] [address] Mar, [facility] [address] [id number] [address] [place] [address], [place] [address] Feb, [facility] [address] [id number] [address] [place] [address], [place] [address] Jan, [facility] [address] [id number] [address] [place] [address], [place] [address] Jan, [facility] [address] [id number] [address] [place] [address], [place] [address] Jan, [facility] [address] [id number] [address] [place] [address], [place] [address] Jan, [facility] [address] [id number] [address] [place] [address], [place] [address] Dec, [facility] [address] [id number] [address] [place] [address], [place] [address] Oct, [facility] [address] [id number] [address] [place] [address], [place] [address] 28 Aug, 2012 [facility] [address] [id number] [address] [place] [address], [place] [address] 27 Aug, 2012 [facility] [address] [id number] [address] [place] [address], [place] [address] Aug, [facility] [address] [id number] [address] [place] [address], [place] [address] Aug, [facility] [address] [id number] [address] [place] [address], [place] [address] 18 Aug, 2012 [facility] [address] [id number] [address] [place] [address], [place] [address] 15 Aug, 2012 [facility] [address] [id number] [address] [place] [address], [place] [address] 14 Aug, 2012 [facility] [address] [id number] [address] [place] [address], [place] [address] Aug, [facility] [address] [id number] [address] [place] [address] Sep, [facility] [address] [id number] [address] [place] [address], [place] [address] Jul, [facility] [address] [id number] [address] [place] [address], [place] [address] Jul, [facility] [address] [id number] [address] [place] [address] Jun, [facility] [address] [id number] [address] [place] [address] Jun, [facility] [address] [id number] [address] [place] [address] Jun, [facility] [address] [id number] [address] [place] [address] May, [facility] [address] [id number] [address] [place] [address] May, [facility] [address] [id number] [address] [place] [address] May, [facility] [address] [id number] [address] [place] [address] Apr, [facility] [address] [id number] [address] [place] [address] Apr, [facility] [address] [id number] [address] [place] [address] Apr, [facility] [address] [id number] [address] [place] [address] Feb, [facility] [address] [id number] [address] [place] [address] Jan, [facility] [address] [facility] [id number] [address] [place] [address] Dec, IMMUNIZATIONS No Known Immunizations SOCIAL HISTORY Never Assessed REASON FOR VISIT headache, sore throat, congestion, cough for the past 3 days. izzy PLAN OF CARE Activity Details Follow Up prn Reason: VITAL SIGNS Height 63.1 in 2018-03-31 Weight 186.0 lbs 2018-03-31 Temperature 97.7 degrees Fahrenheit 2018-03-31 Heart Rate 70 bpm 2018-03-31 Respiratory Rate 20 2018-03-31 BMI 32.84 kg/m2 2018-03-31 Blood pressure systolic 110 mmHg 2018-03-31 Blood pressure diastolic 64 mmHg 2018-03-31 MEDICATIONS Medication Instructions Dosage Frequency Start Date End Date Duration S tatus Multi Adult Gummies - No t-Taking Ferrous Sulfate 325 (65 Fe) MG Orally twice a day 1 tablet 12h 28 Bandar, 2018 30 day(s) Not-Taking RESULTS No Results PROCEDURES No Known procedures INSTRUCTIONS MEDICATIONS ADMINISTERED No Known Medications MEDICAL (GENERAL) HISTORY Type Description Date Medical History herpes Surgical History No know Surgical history Hospitalization History Childbirth only
--- OUTSIDE RECORDS SUMMARY | 2019-07-27 20:25 | XMS REPORT ---
Author Author Ya JOSE [facility] Address [address] [place] [address] Care Team Providers Care Phone Screener Name Role Phone IRMA JOSE Unavailable PROBLEMS Type Condition ICD9-CM Code XRL00-CZ Code Onset Dates Condition S tatus SNOMED Code Problem Herpes simplex vulvovaginitis A60.04 Active 19175218 Problem History of anemia Z86.2 Active 27 6004908 Problem Irregular menses N92.6 Active 801 42812 ALLERGIES Substance Reaction Event Type Date Status Codeine Phosphate Hives Drug Allergy November, Active ENCOUNTERS Encounter Location Date Diagnosis [facility] [address] [id number] [address] [place] [address] Jan, [facility] [address] [id number] [address] [place] [address] Dec, [place] [address] [id number] [address] [place] [address] Dec, History of anemia Z86.2 [facility] [address] [id number] [address] [place] [address] Dec, Irregular menses N92.6 and S creening examination for sexually transmitted disease Z11.3 [facility] [address] [facility] [id number] [address] [place] [address] Dec, Irregular menses N92.6 ; His tory of anemia Z86.2 and Screening examination for sexually transmitted disease Z11.3 [facility] [address] [facility] [id number] [address] [place] [address] November, Herpes simplex vulvovaginiti s A60.04 [facility] [address] [id number] [address] [place] [address] November, [facility] [address] [facility] [id number] [address] [place] [address] 07 Mar, 2017 Knee strain, right, initial encounter S86.911A [facility] [address] [id number] [address] [place] [address] 14 Aug, 2016 Pelvic pain R10.2 [place] [address] [id number] [address] [place] [address] 08 Aug, 2016 Dyspareunia in female N94.10 and control counseling Z30.09 [facility] [address] [id number] [address] [place] [address] 13 Jun, 2016 Gastroenteritis K52.9 and Ac nora effusion of both middle ears H65.193 [place] [address] [id number] [address] [place] [address] 18 Apr, 2016 Swelling of pharynx J39.2 [place] [address] [id number] [address] [place] [address] Jan, [place] [address] [id number] [place] [address] Jan, [place] [address] [id number] [address] [place] [address] Dec, Routine gynecological examin ation Z01.419 ; Encounter for counseling regarding contraception Z30.9 and Encounter for initial prescription of contraceptive pills Z30.011 [place] [address] [facility] [id number] [address] [place] [address] November, Contraceptive management V25 .9 [place] [address] [id number] [address] [place] [address] Oct, [place] [address] [id number] [address] [place] [address] Oct, [place] [address] [id number] [address] [place] [address] Aug, [facility] [address] [id number] [address] [place] [address], [place] [address] Aug, [facility] [address] [id number] [address] [place] [address], [place] [address] Jun, [facility] [address] [id number] [address] [place] [address], [place] [address] Jun, [facility] [address] [id number] [address] [place] [address], [place] [address] Jun, [facility] [address] [id number] [address] [place] [address], [place] [address] Jun, [facility] [address] [id number] [address] [place] [address], [place] [address] Jun, [facility] [address] [id number] [address] [place] [address], [place] [address] Jun, [facility] [address] [id number] [address] [place] [address], [place] [address] Jun, [facility] [address] [id number] [address] [place] [address], [place] [address] Jun, [facility] [address] [id number] [address] [place] [address], [place] [address] Jun, [facility] [address] [id number] [address] [place] [address], [place] [address] Jun, [facility] [address] [id number] [address] [place] [address], [place] [address] Jun, [facility] [address] [id number] [address] [place] [address], [place] [address] May, [facility] [address] [id number] [address] [place] [address], [place] [address] May, [facility] [address] [id number] [address] [place] [address], [place] [address] May, [facility] [address] [id number] [address] [place] [address], [place] [address] May, [facility] [address] [id number] [address] [place] [address], [place] [address] Apr, [facility] [address] [id number] [address] [place] [address], [place] [address] Apr, [facility] [address] [id number] [address] [place] [address], [place] [address] Apr, [facility] [address] [id number] [address] [place] [address], [place] [address] Apr, [facility] [address] [id number] [address] [place] [address], [place] [address] Apr, [facility] [address] [id number] [address] [place] [address], [place] [address] Apr, [facility] [address] [id number] [address] [place] [address], [place] [address] Apr, [facility] [address] [id number] [address] [place] [address], [place] [address] Apr, [facility] [address] [id number] [address] [place] [address], [place] [address] Mar, [facility] [address] [id number] [address] [place] [address], [place] [address] Mar, [facility] [address] [id number] [address] [place] [address], [place] [address] Feb, [facility] [address] [id number] [address] [place] [address], [place] [address] Feb, [facility] [address] [id number] [address] [place] [address], [place] [address] Jan, [facility] [address] [id number] [address] [place] [address], [place] [address] Jan, [facility] [address] [id number] [address] [place] [address], [place] [address] Jan, [facility] [address] [id number] [facility] [place] [address] Jan, [facility] [address] [id number] [address] [place] [address], [place] [address] Jan, [facility] [address] [id number] [address] [place] [address], [place] [address] Dec, [facility] [address] [id number] [address] [place] [address], [place] [address] Dec, [facility] [address] [id number] [address] [place] [address], [place] [address] Dec, [facility] [address] [id number] [address] [place] [address], [place] [address] Dec, [facility] [address] [id number] [address] [place] [address], [place] [address] Dec, [facility] [address] [id number] [address] [place] [address], [place] [address] Dec, [facility] [address] [id number] [address] [place] [address], [place] [address] Dec, [facility] [address] [id number] [address] [place] [address], [place] [address] Dec, [facility] [address] [id number] [address] [place] [address], [place] [address] Dec, [facility] [address] [id number] [address] [place] [address], [place] [address] November, [facility] [address] [id number] [address] [place] [address], [place] [address] November, [facility] [address] [id number] [address] [place] [address], [place] [address] November, [facility] [address] [id number] [address] [place] [address], [place] [address] November, [facility] [address] [id number] [address] [place] [address], [place] [address] November, [facility] [address] [id number] [address] [place] [address], [place] [address] November, [facility] [address] [id number] [address] [place] [address], [place] [address] November, [facility] [address] [id number] [address] [place] [address], [place] [address] November, [facility] [address] [id number] [address] [place] [address], [place] [address] November, [facility] [address] [id number] [address] [place] [address], [place] [address] November, [facility] [address] [id number] [address] [place] [address], [place] [address] Aug, [facility] [address] [id number] [address] [place] [address], [place] [address] Aug, [facility] [address] [id number] [address] [place] [address], [place] [address] Mar, [facility] [address] [id number] [address] [place] [address], [place] [address] Feb, [facility] [address] [id number] [address] [place] [address], [place] [address] Jan, [facility] [address] [id number] [address] [place] [address], [place] [address] Jan, [facility] [address] [id number] [address] [place] [address], [place] [address] Jan, [facility] [address] [id number] [address] [place] [address], [place] [address] Jan, [facility] [address] [id number] [address] [place] [address], [place] [address] Dec, [facility] [address] [id number] [address] [place] [address], [place] [address] Oct, [facility] [address] [id number] [address] [place] [address], [place] [address] 28 Aug, 2012 [facility] [address] [id number] [address] [place] [address], [place] [address] 27 Aug, 2012 [facility] [address] [id number] [address] [place] [address], [place] [address] 26 Aug, 2012 [facility] [address] [id number] [address] [place] [address], [place] [address] 22 Aug, 2012 [facility] [address] [id number] [address] [place] [address], [place] [address] 18 Aug, 2012 [facility] [address] [id number] [address] [place] [address], [place] [address] 15 Aug, 2012 [facility] [address] [id number] [address] [place] [address], [place] [address] 14 Aug, 2012 [facility] [address] [id number] [address] [place] [address], [place] [address] 12 Aug, 2012 [facility] [address] [id number] [address] [place] [address], [place] [address] Sep, [facility] [address] [id number] [address] [place] [address], [place] [address] Jul, [facility] [address] [id number] [address] [place] [address], [place] [address] Jul, [facility] [address] [id number] [address] [place] [address], [place] [address] Jun, [facility] [address] [id number] [address] [place] [address], [place] [address] Jun, [facility] [address] [id number] [address] [place] [address], [place] [address] Jun, [facility] [address] [id number] [address] [place] [address], [place] [address] May, [facility] [address] [id number] [address] [place] [address] May, [facility] [address] [id number] [address] [place] [address] May, [facility] [address] [id number] [address] [place] [address] Apr, [facility] [address] [id number] [address] [place] [address] Apr, [facility] [address] [id number] [address] [place] [address] Apr, [facility] [address] [id number] [address] [place] [address] Feb, [facility] [address] [id number] [address] [place] [address] Jan, [facility] [address] [id number] [address] [place] [address] Dec, IMMUNIZATIONS No Known Immunizations SOCIAL HISTORY Never Assessed REASON FOR VISIT std check/treatment Pt is having an outbreak of herpes and is wanting treatment , does not currently have a primary care does have establish care appointment kaya Loredo. RAZ Chavira PLAN OF CARE Activity Details Follow Up prn Reason: VITAL SIGNS Height 64 in 2017-12-21 Weight 181.6 lbs 2017-12-21 Temperature 97.4 degrees Fahrenheit 2017-12-21 Heart Rate 76 bpm 2017-12-21 Respiratory Rate 20 2017-12-21 BMI 31.17 kg/m2 2017-12-21 Blood pressure systolic 110 mmHg 2017-12-21 Blood pressure diastolic 60 mmHg 2017-12-21 MEDICATIONS Medication Instructions Dosage Frequency Start Date End Date Duration S tatus Acyclovir 800 MG Orally Five times a day 1 tablet November, 10 day(s) Active Ferrous Sulfate 325 mg (65 mg iron) 1 tablet by Oral r oute 2 times per day May, Not-Taking Multi Adult Gummies - No t-Taking Ortho Tri-Cyclen (28) 0.18/0.215/0.25 MG-35 MCG Orally Once a day 1 tablet 24h Dec, 28 day(s) Not-Taking Zofran ODT 4 MG Orally every 8 hrs 1 tablet on the tongue and al low to dissolve 8h Jun, 5 days Not-Taking RESULTS No Results PROCEDURES No Known procedures INSTRUCTIONS MEDICATIONS ADMINISTERED No Known Medications MEDICAL (GENERAL) HISTORY Type Description Date Medical History herpes Hospitalization History Childbirth only
--- OUTSIDE RECORDS SUMMARY | 2019-07-27 20:25 | XMS REPORT ---
Author Author Ya DORSEY Organization [employer] Address Unknown Phone Unavailable Care Team Providers Care Business Systems Developer Name Role Phone MATT DORSEY CP Unavailable Allergies, Adverse Reactions, Alerts Substance Reaction Event Type Codeine Phosphate Hives Drug Allergy Problems Problem Type Condition Code Onset Dates Condition Statu s Problem Encounter for counseling regarding contraception Z30.9 Active Problem Encounter for initial prescription of contraceptive pi lls Z30.011 Active Problem Routine gynecological examination Z01.419 Active Assessment Swelling of pharynx J39.2 Active Medications Medication Code System Code Instructions Start Date End Date Status Dosage PredniSONE [facility] [address]-62 20 mg Orally Once a day May 12 6 May 17, 2016 1 tablet Ferrous Sulfate [facility] [address]-62 325 mg (65 mg iron) Jun 06, 2014 1 tablet by Oral route 2 times per day Procedures Procedure Coding System Code Date Office Visit, Est Pt., Level 3 CPT-[address] 2015 Vital Signs Date/Time: May 12, 2016 Cardiac Monitoring Heart Rate 76 bpm Weight 172 lbs Height 64 in BMI 29.52 Index Blood Pressure Diastolic 70 mmHg Blood Pressure Systolic 110 mmHg Results No Known Results Summary Purpose [employer] Submission
--- OUTSIDE RECORDS SUMMARY | 2019-07-27 20:25 | XMS REPORT ---
Author Author Ya Pierre Doctor Organization [facility] Address Unknown Phone Unavailable Care Team Providers Care Plumber Assistant Name Role Phone Migration, Doctor Unavailable Unavailable PROBLEMS Type Condition ICD9-CM Code [id number] Code Onset Dates Condition S tatus SNOMED Code Problem History of anemia Z86.2 Active 27 1263280 Problem Herpes simplex vulvovaginitis A60.04 Active 93960646 Problem Irregular menses N92.6 Active 801 34905 ALLERGIES No Information ENCOUNTERS Encounter Location Date Diagnosis [facility] [id number] [place] [id number] 19 Aug, 2018 Strep throat J02.0 [facility] [id number] [place] [id number] 14 Mar, 2018 Left wrist pain M25.532 [facility] [id number] [place] [id number] 06 Mar, 2018 Acute nasopharyngitis (commo n cold) J00 ; Post-nasal drip R09.82 and Sore throat J02.9 [facility] [id number] [place] [address] Jan, [facility] [id number] [place] [address] Dec, [facility] [id number] [place] [address] Dec, History of anemia Z86.2 [facility] [id number] [address] [place] [id number] Dec, Irregular menses N92.6 and S creening examination for sexually transmitted disease Z11.3 [facility] [id number] [place] [address] Dec, Irregular menses N92.6 ; His tory of anemia Z86.2 and Screening examination for sexually transmitted disease Z11.3 [facility] [place] [address] [address] November, Herpes simplex vulvovaginiti s A60.04 [place] [address] [address] November, [facility] [place] [address] [address] 07 Mar, 2017 Knee strain, right, initial encounter S86.911A [place] [address] [address] 14 Aug, 2016 Pelvic pain R10.2 [place] [address] [address] 08 Aug, 2016 Dyspareunia in female N94.10 and control counseling Z30.09 [facility] [place] [address] [address] 13 Jun, 2016 Gastroenteritis K52.9 and [place] effusion of both middle ears H65.193 [place] [address] [address] Apr, Swelling of pharynx J39.2 [place] [address] [address] Jan, [place] [address] [address] Jan, [place] [address] [address] Dec, Routine gynecological examin ation Z01.419 ; Encounter for counseling regarding contraception Z30.9 and Encounter for initial prescription of contraceptive pills Z30.011 [place] [address] [address] November, Contraceptive management V25 .9 [facility] [address] [id number] [address] [place] [address], [place] [address] 14 Oct, 2014 [facility] [address] [id number] [address] [place] [address], [place] [address] Oct, [facility] [address] [id number] [address] [place] [address], [place] [address] Aug, [facility] [address] [id number] [address] [place] [address], [place] [address] Aug, [facility] [address] [id number] [address] [place] [address], [place] [address] Jun, [facility] [address] [id number] [address] [place] [address], [place] [address] Jun, [facility] [address] [id number] [address] [place] [address], [place] [address] Jun, [facility] [address] [id number] [address] [place] [address], [place] [address] Jun, [facility] [address] [id number] [address] [place] [address], [place] [address] Jun, [facility] [address] [id number] [address] [place] [address], [place] [address] Jun, [facility] [address] [id number] [address] [place] [address], [place] [address] Jun, [facility] [address] [id number] [address] [place] [address], [place] [address] Jun, [facility] [address] [id number] [address] [place] [address], [place] [address] Jun, [facility] [address] [id number] [address] [place] [address], [place] [address] Jun, [facility] [address] [id number] [address] [place] [address], [place] [address] Jun, [facility] [address] [id number] [address] [place] [address], [place] [address] May, [facility] [address] [id number] [address] [place] [address], [place] [address] May, [facility] [address] [id number] [address] [place] [address], [place] [address] May, [facility] [address] [id number] [address] [place] [address], [place] [address] May, [facility] [address] [id number] [address] [place] [address], [place] [address] Apr, [facility] [address] [id number] [address] [place] [address], [place] [address] Apr, [facility] [address] [id number] [address] [place] [address], [place] [address] Apr, [facility] [address] [id number] [address] [place] [address], [place] [address] Apr, [facility] [address] [id number] [address] [place] [address], [place] [address] Apr, [facility] [address] [id number] [address] [place] [address], [place] [address] Apr, [facility] [address] [id number] [address] [place] [address], [place] [address] Apr, [facility] [address] [id number] [address] [place] [address], [place] [address] Apr, [facility] [address] [id number] [address] [place] [address], [place] [address] Mar, [facility] [address] [id number] [address] [place] [address], [place] [address] Mar, [facility] [address] [id number] [address] [place] [address], [place] [address] Feb, [facility] [address] [id number] [address] [place] [address], [place] [address] Feb, [facility] [address] [id number] [facility] [place] [address] Jan, [facility] [address] [id number] [facility] [place] [address] Jan, [facility] [address] [id number] [facility] [place] [address] Jan, [facility] [address] [id number] [facility] [place] [address] Jan, [facility] [address] [id number] [facility] [place] [address] Jan, [facility] [address] [id number] [address] [place] [address], [place] [address] Dec, [facility] [address] [id number] [address] [place] [address], [place] [address] Dec, [facility] [address] [id number] [address] [place] [address], [place] [address] Dec, [facility] [address] [id number] [address] [place] [address], [place] [address] Dec, [facility] [address] [id number] [address] [place] [address], [place] [address] Dec, [facility] [address] [id number] [address] [place] [address], [place] [address] Dec, [facility] [address] [id number] [address] [place] [address], [place] [address] Dec, [facility] [address] [id number] [address] [place] [address], [place] [address] Dec, [facility] [address] [id number] [address] [place] [address], [place] [address] Dec, [facility] [address] [id number] [address] [place] [address], [place] [address] November, [facility] [address] [id number] [address] [place] [address], [place] [address] November, [facility] [address] [id number] [facility] [place] [address] November, [facility] [address] [id number] [address] [place] [address], [place] [address] November, [facility] [address] [id number] [facility] [place] [address] November, [facility] [address] [id number] [address] [place] [address], [place] [address] November, [facility] [address] [id number] [address] [place] [address], [place] [address] November, [facility] [address] [id number] [address] [place] [address], [place] [address] November, [facility] [address] [id number] [address] [place] [address], [place] [address] November, [facility] [address] [id number] [address] [place] [address], [place] [address] November, [facility] [address] [id number] [address] [place] [address], [place] [address] Aug, [facility] [address] [id number] [address] [place] [address], [place] [address] Aug, [facility] [address] [id number] [address] [place] [address], [place] [address] Mar, [facility] [address] [id number] [address] [place] [address], [place] [address] Feb, [facility] [address] [id number] [address] [place] [address], [place] [address] Jan, [facility] [address] [id number] [address] [place] [address], [place] [address] Jan, [facility] [address] [id number] [address] [place] [address], [place] [address] Jan, [facility] [address] [id number] [address] [place] [address] Jan, [facility] [address] [id number] [address] [place] [address], [place] [address] Dec, [facility] [address] [id number] [address] [place] [address], [place] [address] 15 Oct, 2012 [facility] [address] [id number] [address] [place] [address], [place] [address] 28 Aug, 2012 [facility] [address] [id number] [address] [place] [address], [place] [address] 27 Aug, 2012 [facility] [address] [id number] [address] [place] [address], [place] [address] 26 Aug, 2012 [facility] [address] [id number] [address] [place] [address], [place] [address] 22 Aug, 2012 [facility] [address] [id number] [address] [place] [address], [place] [address] 18 Aug, 2012 [facility] [address] [id number] [address] [place] [address], [place] [address] 15 Aug, 2012 [facility] [address] [id number] [address] [place] [address], [place] [address] 14 Aug, 2012 [facility] [address] [id number] [address] [place] [address], [place] [address] 12 Aug, 2012 [facility] [address] [id number] [address] [place] [address], [place] [address] Sep, [facility] [address] [id number] [address] [place] [address], [place] [address] Jul, [facility] [address] [id number] [address] [place] [address], [place] [address] Jul, [facility] [address] [id number] [address] [place] [address], [place] [address] 08 Jun, 2011 [facility] [address] [id number] [address] [place] [address], [place] [address] Jun, [facility] [address] [id number] [address] [place] [id number] Jun, [facility] [address] [id number] [address] [place] [id number] May, [facility] [address] [id number] [address] [place] [id number] May, [facility] [address] [id number] [address] [place] [id number] May, [facility] [address] [id number] [address] [place] [id number] Apr, [facility] [address] [id number] [address] [place] [id number] Apr, [facility] [address] [id number] [address] [place] [id number] Apr, [facility] [address] [id number] [address] [place] [id number] Feb, [facility] [address] [id number] [address] [place] [id number] Jan, [facility] [address] [id number] [address] [place] [id number] Dec, IMMUNIZATIONS No Known Immunizations SOCIAL HISTORY Never Assessed REASON FOR VISIT EMR-[facility] PLAN OF CARE VITAL SIGNS MEDICATIONS No Known Medications RESULTS No Results PROCEDURES No Known procedures INSTRUCTIONS MEDICATIONS ADMINISTERED No Known Medications MEDICAL (GENERAL) HISTORY Type Description Date Medical History herpes Surgical History No Surgical history information Hospitalization History Childbirth only
--- OUTSIDE RECORDS SUMMARY | 2019-07-27 20:25 | XMS REPORT ---
Author Author Ya MARRERO Organization [facility] Address [address] [place] [address] Care Team Providers Care Automotive Painter Name Role Phone DANYEL MARRERO Unavailable PROBLEMS Type Condition ICD9-CM Code GUT21-AD Code Onset Dates Condition S tatus SNOMED Code Problem Herpes simplex vulvovaginitis A60.04 Active 85019930 Problem History of anemia Z86.2 Active 27 [id number] Problem Irregular menses N92.6 Active 801 21769 ALLERGIES No Information ENCOUNTERS Encounter Location Date Diagnosis [place] [id number] [address] Jan, [facility] [address] [address] Dec, [facility] [address] [address] Dec, History of anemia Z86.2 [facility] [address] [place] [id number] [place] [address] Dec, Irregular menses N92.6 and S creening examination for sexually transmitted disease Z11.3 [facility] [address] [place] [id number] [place] [address] Dec, Irregular menses N92.6 ; His tory of anemia Z86.2 and Screening examination for sexually transmitted disease Z11.3 [facility] [address] [place] [id number] [place] [address] November, Herpes simplex vulvovaginiti s A60.04 [facility] [address] [place] [id number] [place] [address] November, [facility] [address] [facility] [id number] [address] [place] [address] 07 Mar, 2017 Knee strain, right, initial encounter S86.911A [place] [address] [address] [facility] [id number] [address] [place] [address] 14 Aug, 2016 Pelvic pain R10.2 [place] [address] [address] [place] [id number] [address] [place] [address] 08 Aug, 2016 Dyspareunia in female N94.10 and control counseling Z30.09 [facility] [address] [facility] [id number] [address] [place] [address] 13 Jun, 2016 Gastroenteritis K52.9 and Ac nora effusion of both middle ears H65.193 [place] [address] [address] [place] [id number] [address] [place] [address] 18 Apr, 2016 Swelling of pharynx J39.2 [place] [id number] [place] [address] 20 Jan, 2016 [place] [address] [place] [id number] [place] [address] Jan, [place] [address] [place] [id number] [place] [address] Dec, Routine gynecological examin ation Z01.419 ; Encounter for counseling regarding contraception Z30.9 and Encounter for initial prescription of contraceptive pills Z30.011 [place] [address] [address] [place] [id number] [address] [place] [address] November, Contraceptive management V25 .9 [place] [address] [facility] [id number] [address] [place] [address] Oct, [place] [address] [place] [id number] [address] [place] [address] Oct, [place] [address] [place] [id number] [address] [place] [address] Aug, [place] [address] [place] [address] 03 Aug, 2014 [facility] [address] [id number] [address] [place] [address], [place] [address] 30 Jun, 2014 [facility] [address] [id number] [address] [place] [address], [place] [address] Jun, [facility] [address] [id number] [address] [place] [address], [place] [address] Jun, [facility] [address] [id number] [address] [place] [address], [place] [address] Jun, [facility] [address] [id number] [address] [place] [address], [place] [address] Jun, [facility] [address] [id number] [address] [place] [address], [place] [address] Jun, [facility] [address] [id number] [address] [place] [address], [place] [address] Jun, [facility] [address] [id number] [address] [place] [address], [place] [address] Jun, [facility] [address] [id number] [address] [place] [address], [place] [address] Jun, [facility] [address] [id number] [address] [place] [address], [place] [address] Jun, [facility] [address] [id number] [address] [place] [address], [place] [address] Jun, [facility] [address] [id number] [address] [place] [address], [place] [address] May, [facility] [address] [id number] [address] [place] [address], [place] [address] May, [facility] [address] [id number] [address] [place] [address], [place] [address] May, [facility] [address] [id number] [address] [place] [address], [place] [address] May, [facility] [address] [id number] [address] [place] [address], [place] [address] Apr, [facility] [address] [id number] [address] [place] [address], [place] [address] Apr, [facility] [address] [id number] [address] [place] [address], [place] [address] Apr, [facility] [address] [id number] [address] [place] [address], [place] [address] Apr, [facility] [address] [id number] [address] [place] [address], [place] [address] Apr, [facility] [address] [id number] [address] [place] [address], [place] [address] Apr, [facility] [address] [id number] [address] [place] [address], [place] [address] Apr, [facility] [address] [id number] [address] [place] [address], [place] [address] Apr, [facility] [address] [id number] [address] [place] [address], [place] [address] Mar, [facility] [address] [id number] [address] [place] [address], [place] [address] Mar, [facility] [address] [id number] [address] [place] [address], [place] [address] Feb, [facility] [address] [id number] [address] [place] [address], [place] [address] Feb, [facility] [address] [id number] [address] [place] [address], [place] [address] Jan, [facility] [address] [id number] [address] [place] [address], [place] [address] Jan, [facility] [address] [id number] [address] [place] [address], [place] [address] Jan, [facility] [address] [id number] [address] [place] [address], [place] [address] Jan, [facility] [address] [id number] [address] [place] [address], [place] [address] Jan, [facility] [address] [id number] [address] [place] [address], [place] [address] Dec, [facility] [address] [id number] [address] [place] [address], [place] [address] Dec, [facility] [address] [id number] [address] [place] [address], [place] [address] Dec, [facility] [address] [id number] [address] [place] [address], [place] [address] Dec, [facility] [address] [id number] [address] [place] [address], [place] [address] Dec, [facility] [address] [id number] [address] [place] [address], [place] [address] Dec, [facility] [address] [id number] [address] [place] [address], [place] [address] Dec, [facility] [address] [id number] [address] [place] [address], [place] [address] Dec, [facility] [address] [id number] [address] [place] [address], [place] [address] Dec, [facility] [address] [id number] [address] [place] [address], [place] [address] November, [facility] [address] [id number] [address] [place] [address], [place] [address] November, [facility] [address] [id number] [address] [place] [address], [place] [address] November, [facility] [address] [id number] [address] [place] [address], [place] [address] November, [facility] [address] [id number] [address] [place] [address], [place] [address] November, [facility] [address] [id number] [address] [place] [address], [place] [address] November, [facility] [address] [id number] [address] [place] [address], [place] [address] November, [facility] [address] [id number] [address] [place] [address], [place] [address] November, [facility] [address] [id number] [address] [place] [address], [place] [address] November, [facility] [address] [id number] [address] [place] [address], [place] [address] November, [facility] [address] [id number] [address] [place] [address], [place] [address] Aug, [facility] [address] [id number] [address] [place] [address], [place] [address] Aug, [facility] [address] [id number] [address] [place] [address], [place] [address] Mar, [facility] [address] [id number] [address] [place] [address], [place] [address] Feb, [facility] [address] [id number] [address] [place] [address], [place] [address] Jan, [facility] [address] [id number] [address] [place] [address], [place] [address] Jan, [facility] [address] [id number] [address] [place] [address], [place] [address] Jan, [facility] [address] [id number] [address] [place] [address], [place] [address] Jan, [facility] [address] [id number] [address] [place] [address], [place] [address] Dec, [facility] [address] [id number] [address] [place] [address], [place] [address] Oct, [facility] [address] [id number] [address] [place] [address], [place] [address] Aug, [facility] [address] [id number] [address] [place] [address], [place] [address] Aug, [facility] [address] [id number] [address] [place] [address], [place] [address] 26 Aug, 2012 [facility] [address] [id number] [address] [place] [address], [place] [address] Aug, [facility] [address] [id number] [address] [place] [address], [place] [address] 18 Aug, 2012 [facility] [address] [id number] [address] [place] [address], [place] [address] 15 Aug, 2012 [facility] [address] [id number] [address] [place] [address], [place] [address] 14 Aug, 2012 [facility] [address] [id number] [address] [place] [address], [place] [address] Aug, [facility] [address] [id number] [address] [place] [address], [place] [address] Sep, [facility] [address] [id number] [address] [place] [address], [place] [address] Jul, [facility] [address] [id number] [address] [place] [address], [place] [address] Jul, [facility] [address] [id number] [address] [place] [address], [place] [address] Jun, [facility] [address] [id number] [address] [place] [address], [place] [address] Jun, [facility] [address] [id number] [address] [place] [address], [place] [address] Jun, [facility] [address] [id number] [address] [place] [address], [place] [address] 30 May, 2011 [facility] [address] [id number] [address] [place] [address], [place] [address] 16 May, 2011 [facility] [address] [id number] [address] [place] [address] May, [facility] [address] [id number] [address] [place] [id number] Apr, [facility] [address] [facility] [id number] [address] [place] [address] Apr, [facility] [address] [facility] [id number] [address] [place] [address] Apr, [facility] [address] [facility] [id number] [address] [place] [address] Feb, [facility] [address] [facility] [id number] [address] [place] [address] Jan, [facility] [address] [facility] [id number] [address] [place] [address] Dec, IMMUNIZATIONS No Known Immunizations SOCIAL HISTORY Never Assessed REASON FOR VISIT labs PLAN OF CARE VITAL SIGNS MEDICATIONS Unknown Medications RESULTS No Results PROCEDURES No Known procedures INSTRUCTIONS MEDICATIONS ADMINISTERED No Known Medications MEDICAL (GENERAL) HISTORY Type Description Date Medical History herpes Hospitalization History Childbirth only
--- OUTSIDE RECORDS SUMMARY | 2019-07-27 20:25 | XMS REPORT ---
Author Author Ya MARRERO Organization [facility] Address [address] [place] [address] Care Team Providers Care Stained Glass Glazier Name Role Phone DANYEL MARRERO Unavailable PROBLEMS Type Condition ICD9-CM Code YTA00-EX Code Onset Dates Condition S tatus SNOMED Code Problem Herpes simplex vulvovaginitis A60.04 Active 00664924 Problem History of anemia Z86.2 Active 27 7358774 Problem Irregular menses N92.6 Active 801 23217 ALLERGIES No Information ENCOUNTERS Encounter Location Date Diagnosis [place] [id number] [address] Jan, [facility] [address] [address] Dec, [facility] [address] [address] Dec, History of anemia Z86.2 [facility] [address] [place] [id number] [place] [address] Dec, Irregular menses N92.6 and S creening examination for sexually transmitted disease Z11.3 [facility] [address] [place] [id number] [address] [place] [address] Dec, Irregular menses N92.6 ; His tory of anemia Z86.2 and Screening examination for sexually transmitted disease Z11.3 [facility] [address] [place] [id number] [place] [address] November, Herpes simplex vulvovaginiti s A60.04 [facility] [address] [place] [id number] [place] [address] November, [facility] [address] [facility] [id number] [address] [place] [phone] 07 Mar, 2017 Knee strain, right, initial encounter S86.911A [place] [address] [address] [facility] [id number] [address] [place] [address] 14 Aug, 2016 Pelvic pain R10.2 [place] [address] [address] [place] [id number] [address] [place] [address] 08 Aug, 2016 Dyspareunia in female N94.10 and control counseling Z30.09 [facility] [address] [facility] [id number] [address] [place] [address] 13 Jun, 2016 Gastroenteritis K52.9 and Ac nora effusion of both middle ears H65.193 [place] [address] [address] [place] [id number] [place] [address] 18 Apr, 2016 Swelling of pharynx J39.2 [place] [address] [place] [address] 20 Jan, 2016 [place] [address] [place] [id number] [place] [address] Jan, [place] [address] [place] [id number] [place] [address] Dec, Routine gynecological examin ation Z01.419 ; Encounter for counseling regarding contraception Z30.9 and Encounter for initial prescription of contraceptive pills Z30.011 [place] [address] [address] [place] [id number] [place] [address] November, Contraceptive management V25 .9 [place] [address] [address] [facility] [id number] [address] [place] [address] Oct, [place] [address] [place] [id number] [address] [place] [address] Oct, [place] [address] [place] [id number] [address] [place] [address] Aug, [place] [address] [place] [address] 03 Aug, 2014 [facility] [address] [id number] [address] [place] [address], [place] [address] 30 Jun, 2014 [facility] [address] [id number] [address] [place] [address], [place] [address] Jun, [facility] [address] [id number] [address] [place] [address], [place] [address] Jun, [facility] [address] [id number] [address] [place] [address], [place] [address] Jun, [facility] [address] [id number] [address] [place] [address], [place] [address] Jun, [facility] [address] [id number] [address] [place] [address], [place] [address] Jun, [facility] [address] [id number] [address] [place] [address], [place] [address] Jun, [facility] [address] [id number] [address] [place] [address], [place] [address] Jun, [facility] [address] [id number] [address] [place] [address], [place] [address] Jun, [facility] [address] [id number] [address] [place] [address], [place] [address] Jun, [facility] [address] [id number] [address] [place] [address], [place] [address] Jun, [facility] [address] [id number] [address] [place] [address], [place] [address] May, [facility] [address] [id number] [address] [place] [address], [place] [address] May, [facility] [address] [id number] [address] [place] [address], [place] [address] May, [facility] [address] [id number] [address] [place] [address], [place] [address] May, [facility] [address] [id number] [address] [place] [address], [place] [address] Apr, [facility] [address] [id number] [address] [place] [address], [place] [address] Apr, [facility] [address] [id number] [address] [place] [address], [place] [address] Apr, [facility] [address] [id number] [address] [place] [address], [place] [address] Apr, [facility] [address] [id number] [address] [place] [address], [place] [address] Apr, [facility] [address] [id number] [address] [place] [address], [place] [address] Apr, [facility] [address] [id number] [address] [place] [address], [place] [address] Apr, [facility] [address] [id number] [address] [place] [address], [place] [address] Apr, [facility] [address] [id number] [address] [place] [address], [place] [address] Mar, [facility] [address] [id number] [address] [place] [address], [place] [address] Mar, [facility] [address] [id number] [address] [place] [address], [place] [address] Feb, [facility] [address] [id number] [address] [place] [address], [place] [address] Feb, [facility] [address] [id number] [address] [place] [address], [place] [address] Jan, [facility] [address] [id number] [address] [place] [address], [place] [address] Jan, [facility] [address] [id number] [address] [place] [address], [place] [address] Jan, [facility] [address] [id number] [address] [place] [address], [place] [address] Jan, [facility] [address] [id number] [address] [place] [address], [place] [address] Jan, [facility] [address] [id number] [address] [place] [address], [place] [address] Dec, [facility] [address] [id number] [address] [place] [address], [place] [address] Dec, [facility] [address] [id number] [address] [place] [address], [place] [address] Dec, [facility] [address] [id number] [address] [place] [address], [place] [address] Dec, [facility] [address] [id number] [address] [place] [address], [place] [address] Dec, [facility] [address] [id number] [address] [place] [address], [place] [address] Dec, [facility] [address] [id number] [address] [place] [address], [place] [address] Dec, [facility] [address] [id number] [address] [place] [address], [place] [address] Dec, [facility] [address] [id number] [address] [place] [address], [place] [address] Dec, [facility] [address] [id number] [address] [place] [address], [place] [address] November, [facility] [address] [id number] [address] [place] [address], [place] [address] November, [facility] [address] [id number] [address] [place] [address], [place] [address] November, [facility] [address] [id number] [address] [place] [address], [place] [address] November, [facility] [address] [id number] [address] [place] [address], [place] [address] November, [facility] [address] [id number] [address] [place] [address], [place] [address] November, [facility] [address] [id number] [address] [place] [address], [place] [address] November, [facility] [address] [id number] [address] [place] [address], [place] [address] November, [facility] [address] [id number] [address] [place] [address], [place] [address] November, [facility] [address] [id number] [address] [place] [address], [place] [address] November, [facility] [address] [id number] [address] [place] [address], [place] [address] Aug, [facility] [address] [id number] [address] [place] [address], [place] [address] Aug, [facility] [address] [id number] [address] [place] [address], [place] [address] Mar, [facility] [address] [id number] [address] [place] [address], [place] [address] Feb, [facility] [address] [id number] [address] [place] [address], [place] [address] Jan, [facility] [address] [id number] [address] [place] [address], [place] [address] Jan, [facility] [address] [id number] [address] [place] [address], [place] [address] Jan, [facility] [address] [id number] [address] [place] [address], [place] [address] Jan, [facility] [address] [id number] [address] [place] [address], [place] [address] Dec, [facility] [address] [id number] [address] [place] [address], [place] [address] Oct, [facility] [address] [id number] [address] [place] [address], [place] [address] Aug, [facility] [address] [id number] [address] [place] [address], [place] [address] Aug, [facility] [address] [id number] [address] [place] [address], [place] [address] 26 Aug, 2012 [facility] [address] [id number] [address] [place] [address], [place] [address] Aug, [facility] [address] [id number] [address] [place] [address], [place] [address] 18 Aug, 2012 [facility] [address] [id number] [address] [place] [address], [place] [address] 15 Aug, 2012 [facility] [address] [id number] [address] [place] [address], [place] [address] 14 Aug, 2012 [facility] [address] [id number] [address] [place] [address], [place] [address] Aug, [facility] [address] [id number] [address] [place] [address], [place] [address] Sep, [facility] [address] [id number] [address] [place] [address], [place] [address] Jul, [facility] [address] [id number] [address] [place] [address], [place] [address] Jul, [facility] [address] [id number] [address] [place] [address], [place] [address] Jun, [facility] [address] [id number] [address] [place] [address], [place] [address] Jun, [facility] [address] [id number] [address] [place] [address], [place] [address] Jun, [facility] [address] [id number] [address] [place] [address], [place] [address] 30 May, 2011 [facility] [address] [id number] [address] [place] [address], [place] [address] 16 May, 2011 [facility] [address] [id number] [address] [place] [address] May, [facility] [address] [id number] [address] [place] [address] Apr, [facility] [address] [id number] [address] [place] [address] Apr, [facility] [address] [facility] [id number] [address] [place] [address] Apr, [facility] [address] [facility] [id number] [address] [place] [id number] Feb, [facility] [address] [facility] [id number] [address] [place] [address] Jan, [facility] [address] [facility] [id number] [address] [place] [address] Dec, IMMUNIZATIONS No Known Immunizations SOCIAL HISTORY Never Assessed REASON FOR VISIT new orders PLAN OF CARE VITAL SIGNS MEDICATIONS Medication Instructions Dosage Frequency Start Date End Date Duration S tatus Ferrous Sulfate 325 (65 Fe) MG Orally twice a day 1 tablet 12h Dec, 30 day(s) Active RESULTS No Results PROCEDURES No Known procedures INSTRUCTIONS MEDICATIONS ADMINISTERED No Known Medications MEDICAL (GENERAL) HISTORY Type Description Date Medical History herpes Hospitalization History Childbirth only
--- OUTSIDE RECORDS SUMMARY | 2019-07-27 20:25 | XMS REPORT ---
Author Author Ya Pierre Doctor Organization [facility] Address Unknown Phone Unavailable Care Team Providers Care Senior Catering Sales Manager Name Role Phone Migration, Doctor Unavailable Unavailable PROBLEMS Type Condition ICD9-CM Code OSN00-OD Code Onset Dates Condition S tatus SNOMED Code Problem History of anemia Z86.2 Active 27 3493608 Problem Herpes simplex vulvovaginitis A60.04 Active 09949222 Problem Irregular menses N92.6 Active 801 74804 ALLERGIES No Information ENCOUNTERS Encounter Location Date Diagnosis [facility] [address] [id number] [address] [place] [address] 19 Aug, 2018 Strep throat J02.0 [facility] [address] [id number] [address] [place] [address] 14 Mar, 2018 Left wrist pain M25.532 [facility] [address] [id number] [address] [place] [address] 06 Mar, 2018 Acute nasopharyngitis (commo n cold) J00 ; Post-nasal drip R09.82 and Sore throat J02.9 [facility] [address] [place] [address] Jan, [facility] [address] [id number] [address] [place] [address] Dec, [facility] [address] [place] [address] Dec, History of anemia Z86.2 [facility] [address] [id number] [address] [place] [address] Dec, Irregular menses N92.6 and S creening examination for sexually transmitted disease Z11.3 [facility] [id number] [address] [place] [address] Dec, Irregular menses N92.6 ; His tory of anemia Z86.2 and Screening examination for sexually transmitted disease Z11.3 [facility] [place] [address] [address] November, Herpes simplex vulvovaginiti s A60.04 [place] [address] [address] November, [facility] [place] [address] [address] 07 Mar, 2017 Knee strain, right, initial encounter S86.911A [place] [address] [address] 14 Aug, 2016 Pelvic pain R10.2 [place] [address] [address] 08 Aug, 2016 Dyspareunia in female N94.10 and control counseling Z30.09 [facility] [place] [address] [address] 13 Jun, 2016 Gastroenteritis K52.9 and [place] effusion of both middle ears H65.193 [place] [address] [address] Apr, Swelling of pharynx J39.2 [place] [address] [address] Jan, [place] [address] [address] Jan, [place] [address] [address] Dec, Routine gynecological examin ation Z01.419 ; Encounter for counseling regarding contraception Z30.9 and Encounter for initial prescription of contraceptive pills Z30.011 [place] [address] [address] November, Contraceptive management V25 .9 [facility] [address] [id number] [address] [place] [address], [place] [address] 14 Oct, 2014 [facility] [address] [id number] [address] [place] [address], [place] [address] Oct, [facility] [address] [id number] [address] [place] [address], [place] [address] Aug, [facility] [address] [id number] [address] [place] [address], [place] [address] Aug, [facility] [address] [id number] [address] [place] [address], [place] [address] Jun, [facility] [address] [id number] [address] [place] [address], [place] [address] Jun, [facility] [address] [id number] [address] [place] [address], [place] [address] Jun, [facility] [address] [id number] [address] [place] [address], [place] [address] Jun, [facility] [address] [id number] [address] [place] [address], [place] [address] Jun, [facility] [address] [id number] [address] [place] [address], [place] [address] Jun, [facility] [address] [id number] [address] [place] [address], [place] [address] Jun, [facility] [address] [id number] [address] [place] [address], [place] [address] Jun, [facility] [address] [id number] [address] [place] [address], [place] [address] Jun, [facility] [address] [id number] [address] [place] [address], [place] [address] Jun, [facility] [address] [id number] [address] [place] [address], [place] [address] Jun, [facility] [address] [id number] [address] [place] [address], [place] [address] May, [facility] [address] [id number] [address] [place] [address], [place] [address] May, [facility] [address] [id number] [address] [place] [address], [place] [address] May, [facility] [address] [id number] [address] [place] [address], [place] [address] May, [facility] [address] [id number] [address] [place] [address], [place] [address] Apr, [facility] [address] [id number] [address] [place] [address], [place] [address] Apr, [facility] [address] [id number] [address] [place] [address], [place] [address] Apr, [facility] [place] [address] [id number] [address] [place] [address], [place] [address] Apr, [facility] [place] [address] [id number] [address] [place] [address], [place] [address] Apr, [facility] [address] [id number] [address] [place] [address], [place] [address] Apr, [facility] [place] [facility] [address] [id number] [address] [place] [address], [place] [address] Apr, [facility] [place] [address] [id number] [address] [place] [address], [place] [address] Apr, [facility] [place] [facility] [address] [id number] [address] [place] [address], [place] [address] Mar, [facility] [place] [facility] [address] [id number] [address] [place] [address], [place] [address] Mar, [facility] [place] [address] [id number] [address] [place] [address], [place] [address] Feb, [facility] [place] [facility] [address] [id number] [address] [place] [address], [place] [address] Feb, [facility] [place] [address] [id number] [facility] [place] [address] Jan, [facility] [place] [facility] [address] [id number] [facility] [place] [address] Jan, [facility] [place] [facility] [address] [id number] [facility] [place] [address] Jan, [facility] [place] [facility] [address] [id number] [facility] [place] [address] Jan, [facility] [place] [facility] [address] [id number] [facility] [place] [address] Jan, [facility] [place] [address] [id number] [address] [place] [address], [place] [address] Dec, [facility] [place] [facility] [address] [id number] [address] [place] [address], [place] [address] Dec, [facility] [place] [facility] [address] [id number] [address] [place] [address], [place] [address] Dec, [facility] [place] [facility] [address] [id number] [address] [place] [address], [place] [address] Dec, [facility] [address] [id number] [address] [place] [address], [place] [address] Dec, [facility] [place] [facility] [address] [id number] [address] [place] [address], [place] [address] Dec, [facility] [place] [address] [id number] [address] [place] [address], [place] [address] Dec, [facility] [place] [facility] [address] [id number] [address] [place] [address], [place] [address] Dec, [facility] [place] [facility] [address] [id number] [address] [place] [address], [place] [address] Dec, [facility] [place] [facility] [address] [id number] [address] [place] [address], [place] [address] November, [facility] [place] [facility] [address] [id number] [address] [place] [address], [place] [address] November, [facility] [address] [id number] [facility] [place] [address] November, [facility] [address] [id number] [address] [place] [address], [place] [address] November, [facility] [address] [id number] [facility] [place] [address] November, [facility] [address] [id number] [address] [place] [address], [place] [address] November, [facility] [address] [id number] [address] [place] [address], [place] [address] November, [facility] [address] [id number] [address] [place] [address], [place] [address] November, [facility] [address] [id number] [address] [place] [address], [place] [address] November, [facility] [address] [id number] [address] [place] [address], [place] [address] November, [facility] [address] [id number] [address] [place] [address], [place] [address] Aug, [facility] [address] [id number] [address] [place] [address], [place] [address] Aug, [facility] [address] [id number] [address] [place] [address], [place] [address] Mar, [facility] [facility] [address] [id number] [address] [place] [address], [place] [address] Feb, [facility] [address] [id number] [address] [place] [address], [place] [address] Jan, [facility] [place] [facility] [address] [id number] [address] [place] [address], [place] [address] Jan, [facility] [place] [facility] [address] [id number] [address] [place] [address], [place] [address] Jan, [facility] [address] [id number] [address] [address] Jan, [facility] [address] [id number] [address] [place] [address], [place] [address] Dec, [facility] [address] [id number] [address] [place] [address], [place] [address] 15 Oct, 2012 [facility] [address] [id number] [address] [place] [address], [place] [address] 28 Aug, 2012 [facility] [address] [id number] [address] [place] [address], [place] [address] 27 Aug, 2012 [facility] [address] [id number] [address] [place] [address], [place] [address] 26 Aug, 2012 [facility] [address] [id number] [address] [place] [address], [place] [address] 22 Aug, 2012 [facility] [address] [id number] [address] [place] [address], [place] [address] 18 Aug, 2012 [facility] [address] [id number] [address] [place] [address], [place] [address] 15 Aug, 2012 [facility] [address] [id number] [address] [place] [address], [place] [address] 14 Aug, 2012 [facility] [address] [id number] [address] [place] [address], [place] [address] 12 Aug, 2012 [facility] [address] [id number] [address] [place] [address], [place] [address] Sep, [facility] [address] [id number] [address] [place] [address], [place] [address] Jul, [facility] [address] [id number] [address] [place] [address], [place] [address] Jul, [facility] [address] [id number] [address] [place] [address], [place] [address] 08 Jun, 2011 [facility] [address] [id number] [address] [place] [address], [place] [address] Jun, [facility] [address] [id number] [address] [place] [address] Jun, [facility] [address] [id number] [address] [place] [address] May, [facility] [address] [id number] [address] [place] [address] May, [facility] [address] [id number] [address] [place] [address] May, [facility] [address] [id number] [address] [place] [address] Apr, [facility] [address] [id number] [address] [place] [address] Apr, [facility] [address] [id number] [address] [place] [address] Apr, [facility] [address] [id number] [address] [place] [address] Feb, [facility] [address] [id number] [address] [place] [address] Jan, [facility] [address] [id number] [address] [place] [address] Dec, IMMUNIZATIONS No Known Immunizations SOCIAL HISTORY Never Assessed REASON FOR VISIT EMR-[facility] [place] PLAN OF CARE VITAL SIGNS MEDICATIONS No Known Medications RESULTS No Results PROCEDURES No Known procedures INSTRUCTIONS MEDICATIONS ADMINISTERED No Known Medications MEDICAL (GENERAL) HISTORY Type Description Date Medical History herpes Surgical History No Surgical history information Hospitalization History Childbirth only
--- OUTSIDE RECORDS SUMMARY | 2019-07-27 20:25 | XMS REPORT ---
Author Author Ya MARRERO Organization [facility] [place] Address [address] [place] [address] Care Team Providers Care Facilities Clerk Name Role Phone DANYEL MARRERO Unavailable PROBLEMS Type Condition ICD9-CM Code [id number] Code Onset Dates Condition S tatus SNOMED Code Problem Herpes simplex vulvovaginitis A60.04 Active 35185427 Problem History of anemia Z86.2 Active 27 2280438 Problem Irregular menses N92.6 Active 801 39170 ALLERGIES Substance Reaction Event Type Date Status Codeine Phosphate Hives Drug Allergy Dec, Active ENCOUNTERS Encounter Location Date Diagnosis [facility] [address] [id number] [address] [place] [address] Jan, [facility] [place] [address] [id number] [address] [place] [address] Dec, [facility] [place] [address] [address] Dec, History of anemia Z86.2 [facility] [place] [address] [id number] [address] [place] [address] Dec, Irregular menses N92.6 and S creening examination for sexually transmitted disease Z11.3 [facility] [place] [address] [id number] [address] [place] [address] Dec, Irregular menses N92.6 ; His tory of anemia Z86.2 and Screening examination for sexually transmitted disease Z11.3 [facility] [address] [id number] [address] [place] [address] November, Herpes simplex vulvovaginiti s A60.04 [facility] [place] [address] [id number] [address] [place] [address] November, [facility] [address] [facility] [id number] [address] [place] [address] 07 Mar, 2017 Knee strain, right, initial encounter S86.911A [facility] [place] [address] [id number] [address] [place] [address] 14 Aug, 2016 Pelvic pain R10.2 [place] [id number] [place] [phone] 08 Aug, 2016 Dyspareunia in female N94.10 and control counseling Z30.09 [facility] [address] [id number] [address] [place] [address] 13 Jun, 2016 Gastroenteritis K52.9 and Ac makah effusion of both middle ears H65.193 [place] [address] [address] 18 Apr, 2016 Swelling of pharynx J39.2 [place] [id number] [place] [address] Jan, [place] [address] [address] Jan, [place] [address] [id number] [address] [place] [address] Dec, Routine gynecological examin ation Z01.419 ; Encounter for counseling regarding contraception Z30.9 and Encounter for initial prescription of contraceptive pills Z30.011 [place] [address] [id number] [address] [place] [address] November, Contraceptive management V25 .9 [place] [address] [id number] [address] [place] [address] Oct, [place] [address] [id number] [address] [place] [address] Oct, [place] [address] [id number] [address] [place] [address] Aug, [facility] [address] [id number] [address] [place] [address], [place] [address] Aug, [facility] [address] [id number] [address] [place] [address], [place] [address] Jun, [facility] [address] [id number] [address] [place] [address], [place] [address] Jun, [facility] [address] [id number] [address] [place] [address], [place] [address] Jun, [facility] [address] [id number] [address] [place] [address], [place] [address] Jun, [facility] [address] [id number] [address] [place] [address], [place] [address] Jun, [facility] [address] [id number] [address] [place] [address], [place] [address] Jun, [facility] [address] [id number] [address] [place] [address], [place] [address] Jun, [facility] [address] [id number] [address] [place] [address], [place] [address] Jun, [facility] [address] [id number] [address] [place] [address], [place] [address] Jun, [facility] [address] [id number] [address] [place] [address], [place] [address] Jun, [facility] [address] [id number] [address] [place] [address], [place] [address] Jun, [facility] [address] [id number] [address] [place] [address], [place] [address] May, [facility] [address] [id number] [address] [place] [address], [place] [address] May, [facility] [address] [id number] [address] [place] [address], [place] [address] May, [facility] [address] [id number] [address] [place] [address], [place] [address] May, [facility] [address] [id number] [address] [place] [address], [place] [address] Apr, [facility] [address] [id number] [address] [place] [address], [place] [address] Apr, [facility] [address] [id number] [address] [place] [address], [place] [address] Apr, [facility] [address] [id number] [address] [place] [address], [place] [address] Apr, [facility] [address] [id number] [address] [place] [address], [place] [address] Apr, [facility] [address] [id number] [address] [place] [address], [place] [address] Apr, [facility] [address] [id number] [address] [place] [address], [place] [address] Apr, [facility] [address] [id number] [address] [place] [address], [place] [address] Apr, [facility] [address] [id number] [address] [place] [address], [place] [address] Mar, [facility] [address] [id number] [address] [place] [address], [place] [address] Mar, [facility] [address] [id number] [address] [place] [address], [place] [address] Feb, [facility] [address] [id number] [address] [place] [address], [place] [address] Feb, [facility] [address] [id number] [address] [place] [address], [place] [address] Jan, [facility] [address] [id number] [address] [place] [address], [place] [address] Jan, [facility] [address] [id number] [address] [place] [address], [place] [address] Jan, [facility] [address] [id number] [facility] [place] [address] Jan, [facility] [address] [id number] [facility] [place] [address] Jan, [facility] [address] [id number] [facility] [place] [address] Dec, [facility] [address] [id number] [facility] [place] [address] Dec, [facility] [address] [id number] [address] [place] [address], [place] [address] Dec, [facility] [address] [id number] [address] [place] [address], [place] [address] Dec, [facility] [address] [id number] [address] [place] [address], [place] [address] Dec, [facility] [address] [id number] [address] [place] [address], [place] [address] Dec, [facility] [address] [id number] [address] [place] [address], [place] [address] Dec, [facility] [address] [id number] [address] [place] [address], [place] [address] Dec, [facility] [address] [id number] [address] [place] [address], [place] [address] Dec, [facility] [address] [id number] [address] [place] [address], [place] [address] November, [facility] [address] [id number] [address] [place] [address], [place] [address] November, [facility] [address] [id number] [address] [place] [address], [place] [address] November, [facility] [address] [id number] [address] [place] [address], [place] [address] November, [facility] [address] [id number] [address] [place] [address], [place] [address] November, [facility] [address] [id number] [facility] [place] [address] November, [facility] [address] [id number] [address] [place] [address], [place] [address] November, [facility] [address] [id number] [address] [place] [address], [place] [address] November, [facility] [address] [id number] [address] [place] [address], [place] [address] November, [facility] [address] [id number] [address] [place] [address], [place] [address] November, [facility] [address] [id number] [address] [place] [address], [place] [address] Aug, [facility] [address] [id number] [address] [place] [address], [place] [address] Aug, [facility] [address] [id number] [address] [place] [address], [place] [address] Mar, [facility] [address] [id number] [address] [place] [address], [place] [address] Feb, [facility] [address] [id number] [address] [place] [address], [place] [address] Jan, [facility] [address] [id number] [address] [place] [address], [place] [address] Jan, [facility] [address] [id number] [address] [place] [address], [place] [address] Jan, [facility] [address] [id number] [address] [place] [address], [place] [address] Jan, [facility] [address] [id number] [address] [place] [address], [place] [address] Dec, [facility] [address] [id number] [address] [place] [address], [place] [address] Oct, [facility] [address] [id number] [address] [place] [address], [place] [address] 28 Aug, 2012 [facility] [address] [id number] [address] [place] [address], [place] [address] 27 Aug, 2012 [facility] [address] [id number] [address] [place] [address], [place] [address] 26 Aug, 2012 [facility] [address] [id number] [address] [place] [address], [place] [address] 22 Aug, 2012 [facility] [address] [id number] [address] [place] [address], [place] [address] 18 Aug, 2012 [facility] [address] [id number] [address] [place] [address], [place] [address] 15 Aug, 2012 [facility] [address] [id number] [address] [place] [address], [place] [address] 14 Aug, 2012 [facility] [address] [id number] [address] [place] [address], [place] [address] 12 Aug, 2012 [facility] [address] [id number] [address] [place] [address], [place] [address] Sep, [facility] [address] [id number] [address] [place] [address], [place] [address] Jul, [facility] [address] [id number] [address] [place] [address], [place] [address] Jul, [facility] [address] [id number] [address] [place] [address], [place] [address] Jun, [facility] [address] [id number] [address] [place] [address], [place] [address] Jun, [facility] [address] [id number] [address] [place] [address], [place] [address] Jun, [facility] [address] [id number] [address] [place] [address], [place] [address] May, [facility] [address] [id number] [address] [place] [address], [place] [address] May, [facility] [address] [id number] [address] [place] [address] May, [facility] [address] [id number] [address] [place] [address] Apr, [facility] [address] [id number] [address] [place] [address] Apr, [facility] [place] [address] [id number] [address] [place] [address] Apr, [facility] [address] [facility] [id number] [address] [place] [address] Feb, [facility] [address] [facility] [id number] [address] [place] [address] Jan, [facility] [address] [facility] [id number] [address] [place] [address] Dec, IMMUNIZATIONS No Known Immunizations SOCIAL HISTORY Never Assessed REASON FOR VISIT Establish Care-RAZ Irby, Wanting to get some blood work done. Hemoglobin h as been low in the past. Thinks her thyroids might be off. She hasn't been ge tting her periods. PLAN OF CARE Activity Details Follow Up 4 Weeks Reason:WWE/PAP Future/Pending Procedure ROUTINE VENIPUNCTURE VITAL SIGNS Height 63.1 in 2018-01-14 Weight 184.2 lbs 2018-01-14 Temperature 98.0 degrees Fahrenheit 2018-01-14 Heart Rate 72 bpm 2018-01-14 Respiratory Rate 18 2018-01-14 BMI 32.52 kg/m2 2018-01-14 Blood pressure systolic 110 mmHg 2018-01-14 Blood pressure diastolic 62 mmHg 2018-01-14 MEDICATIONS Medication Instructions Dosage Frequency Start Date End Date Duration S tatus Multi Adult Gummies - Ac tive RESULTS Name Result Date Reference Range HEMOGLOBIN (IN HOUSE) 2018-01-14 HEMOGLOBIN 12.0 11.5 - 16 gm/dL Lot # [id number] Exp date 05/03/19 TEST, URINE (IN HOUSE) 2018-01-14 RESULTS neg Lot # [id number] Control + Exp date 07/13 GC/CHLAM URINE (STATE) 2018-01-14 CHLAMYDIA neg GC neg PROCEDURES Procedure Date Ordered Result Body Site HEMOGLOBIN January 14, 2018 URINE TEST January 14, 2018 VENIPUNCT, ROUTINE* January 14, 2018 INSTRUCTIONS MEDICATIONS ADMINISTERED No Known Medications MEDICAL (GENERAL) HISTORY Type Description Date Medical History herpes Hospitalization History Childbirth only
--- OUTSIDE RECORDS SUMMARY | 2019-07-27 20:25 | XMS REPORT ---
Author Author Ya BACA [facility] Address [address] [place] [address] Care Team Providers Care Technical Manager Name Role Phone MARCOS BACA Unavailable PROBLEMS Type Condition ICD9-CM Code VHA61-LS Code Onset Dates Condition S tatus SNOMED Code Problem Encounter for initial prescription of contraceptive pills Z30.011 Active 96764729 Problem Routine gynecological examination Z01.419 Active 712369405 Problem Encounter for counseling regarding contraception Z 30.9 Active 23296554 ALLERGIES No Information SOCIAL HISTORY Never Assessed PLAN OF CARE VITAL SIGNS MEDICATIONS No Known Medications RESULTS No Results PROCEDURES No Known procedures IMMUNIZATIONS No Known Immunizations MEDICAL (GENERAL) HISTORY Type Description Date Medical History herpes Hospitalization History Childbirth only
--- OUTSIDE RECORDS SUMMARY | 2019-07-27 20:25 | XMS REPORT ---
Author Author Ya MARRERO Organization [facility] Address [address] [place] [address] Care Team Providers Care Drafter Castings Name Role Phone DANYEL MARRERO Unavailable PROBLEMS Type Condition ICD9-CM Code TDV21-SV Code Onset Dates Condition S tatus SNOMED Code Problem Herpes simplex vulvovaginitis A60.04 Active 03044264 Problem History of anemia Z86.2 Active 27 3789075 Problem Irregular menses N92.6 Active 801 66181 ALLERGIES No Information ENCOUNTERS Encounter Location Date Diagnosis [place] [id number] [address] Jan, [facility] [address] [address] Dec, [facility] [address] [address] Dec, History of anemia Z86.2 [facility] [address] [place] [id number] [place] [address] Dec, Irregular menses N92.6 and S creening examination for sexually transmitted disease Z11.3 [facility] [address] [place] [id number] [address] Dec, Irregular menses N92.6 ; His tory of anemia Z86.2 and Screening examination for sexually transmitted disease Z11.3 [facility] [address] [place] [id number] [address] November, Herpes simplex vulvovaginiti s A60.04 [facility] [address] [place] [id number] [address] November, [facility] [address] [facility] [id number] [address] [address] 07 Mar, 2017 Knee strain, right, initial encounter S86.911A [place] [address] [address] [facility] [id number] [address] [address] 14 Aug, 2016 Pelvic pain R10.2 [place] [address] [address] [place] [id number] [address] [address] 08 Aug, 2016 Dyspareunia in female N94.10 and control counseling Z30.09 [facility] [address] [facility] [id number] [address] [place] [address] 13 Jun, 2016 Gastroenteritis K52.9 and Ac nora effusion of both middle ears H65.193 [place] [address] [address] [place] [id number] [address] [address] 18 Apr, 2016 Swelling of pharynx J39.2 [place] [id number] [place] [address] 20 Jan, 2016 [place] [address] [address] [place] [id number] [place] [address] Jan, [place] [address] [address] [place] [id number] [address] Dec, Routine gynecological examin ation Z01.419 ; Encounter for counseling regarding contraception Z30.9 and Encounter for initial prescription of contraceptive pills Z30.011 [place] [address] [address] [place] [id number] [address] [address] November, Contraceptive management V25 .9 [place] [address] [address] [facility] [id number] [address] [address] Oct, [place] [address] [address] [place] [id number] [address] [address] Oct, [place] [address] [address] [place] [id number] [address] [address] Aug, [place] [address] [place] [address] 03 Aug, 2014 [facility] [address] [id number] [address] [place] [address], [place] [address] 30 Jun, 2014 [facility] [address] [id number] [address] [place] [address], [place] [address] Jun, [facility] [address] [id number] [address] [place] [address], [place] [address] Jun, [facility] [address] [id number] [address] [place] [address], [place] [address] Jun, [facility] [address] [id number] [address] [place] [address], [place] [address] Jun, [facility] [address] [id number] [address] [place] [address], [place] [address] Jun, [facility] [address] [id number] [address] [place] [address], [place] [address] Jun, [facility] [address] [id number] [address] [place] [address], [place] [address] Jun, [facility] [address] [id number] [address] [place] [address], [place] [address] Jun, [facility] [address] [id number] [address] [place] [address], [place] [address] Jun, [facility] [address] [id number] [address] [place] [address], [place] [address] Jun, [facility] [address] [id number] [address] [place] [address], [place] [address] May, [facility] [address] [id number] [address] [place] [address], [place] [address] May, [facility] [address] [id number] [address] [place] [address], [place] [address] May, [facility] [address] [id number] [address] [place] [address], [place] [address] May, [facility] [address] [id number] [address] [place] [address], [place] [address] Apr, [facility] [address] [id number] [address] [place] [address], [place] [address] Apr, [facility] [address] [id number] [address] [place] [address], [place] [address] Apr, [facility] [address] [id number] [address] [place] [address], [place] [address] Apr, [facility] [address] [id number] [address] [place] [address], [place] [address] Apr, [facility] [address] [id number] [address] [place] [address], [place] [address] Apr, [facility] [address] [id number] [address] [place] [address], [place] [address] Apr, [facility] [address] [id number] [address] [place] [address], [place] [address] Apr, [facility] [address] [id number] [address] [place] [address], [place] [address] Mar, [facility] [address] [id number] [address] [place] [address], [place] [address] Mar, [facility] [address] [id number] [address] [place] [address], [place] [address] Feb, [facility] [address] [id number] [address] [place] [address], [place] [address] Feb, [facility] [address] [id number] [address] [place] [address], [place] [address] Jan, [facility] [address] [id number] [address] [place] [address], [place] [address] Jan, [facility] [address] [id number] [address] [place] [address], [place] [address] Jan, [facility] [address] [id number] [address] [place] [address], [place] [address] Jan, [facility] [address] [id number] [address] [place] [address], [place] [address] Jan, [facility] [address] [id number] [address] [place] [address], [place] [address] Dec, [facility] [address] [id number] [address] [place] [address], [place] [address] Dec, [facility] [address] [id number] [address] [place] [address], [place] [address] Dec, [facility] [address] [id number] [address] [place] [address], [place] [address] Dec, [facility] [address] [id number] [address] [place] [address], [place] [address] Dec, [facility] [address] [id number] [address] [place] [address], [place] [address] Dec, [facility] [address] [id number] [address] [place] [address], [place] [address] Dec, [facility] [address] [id number] [address] [place] [address], [place] [address] Dec, [facility] [address] [id number] [address] [place] [address], [place] [address] Dec, [facility] [address] [id number] [address] [place] [address], [place] [address] November, [facility] [address] [id number] [address] [place] [address], [place] [address] November, [facility] [address] [id number] [address] [place] [address], [place] [address] November, [facility] [address] [id number] [address] [place] [address], [place] [address] November, [facility] [address] [id number] [address] [place] [address], [place] [address] November, [facility] [address] [id number] [address] [place] [address], [place] [address] November, [facility] [address] [id number] [address] [place] [address], [place] [address] November, [facility] [address] [id number] [address] [place] [address], [place] [address] November, [facility] [address] [id number] [address] [place] [address], [place] [address] November, [facility] [address] [id number] [address] [place] [address], [place] [address] November, [facility] [address] [id number] [address] [place] [address], [place] [address] Aug, [facility] [address] [id number] [address] [place] [address], [place] [address] Aug, [facility] [address] [id number] [address] [place] [address], [place] [address] Mar, [facility] [address] [id number] [address] [place] [address], [place] [address] Feb, [facility] [address] [id number] [address] [place] [address], [place] [address] Jan, [facility] [address] [id number] [address] [place] [address], [place] [address] Jan, [facility] [address] [id number] [address] [place] [address], [place] [address] Jan, [facility] [address] [id number] [address] [place] [address], [place] [address] Jan, [facility] [address] [id number] [address] [place] [address], [place] [address] Dec, [facility] [address] [id number] [address] [place] [address], [place] [address] Oct, [facility] [address] [id number] [address] [place] [address], [place] [address] Aug, [facility] [address] [id number] [address] [place] [address], [place] [address] Aug, [facility] [address] [id number] [address] [place] [address], [place] [address] 26 Aug, 2012 [facility] [address] [id number] [address] [place] [address], [place] [address] Aug, [facility] [address] [id number] [address] [place] [address], [place] [address] 18 Aug, 2012 [facility] [address] [id number] [address] [place] [address], [place] [address] 15 Aug, 2012 [facility] [address] [id number] [address] [place] [address], [place] [address] 14 Aug, 2012 [facility] [address] [id number] [address] [place] [address], [place] [address] Aug, [facility] [address] [id number] [address] [place] [address], [place] [address] Sep, [facility] [address] [id number] [address] [place] [address], [place] [address] Jul, [facility] [address] [id number] [address] [place] [address], [place] [address] Jul, [facility] [address] [id number] [address] [place] [address], [place] [address] Jun, [facility] [address] [id number] [address] [place] [address], [place] [address] Jun, [facility] [address] [id number] [address] [place] [address], [place] [address] Jun, [facility] [address] [id number] [address] [place] [address], [place] [address] 30 May, 2011 [facility] [address] [id number] [address] [place] [address], [place] [address] 16 May, 2011 [facility] [address] [id number] [address] [place] [address] May, [facility] [address] [id number] [address] [address] Apr, [facility] [address] [id number] [address] [address] Apr, [facility] [address] [facility] [id number] [address] [address] Apr, [facility] [address] [facility] [id number] [address] [address] Feb, [facility] [address] [facility] [id number] [address] [address] Jan, [facility] [address] [facility] [id number] [address] [address] Dec, IMMUNIZATIONS No Known Immunizations SOCIAL HISTORY Never Assessed REASON FOR VISIT Lab results PLAN OF CARE VITAL SIGNS MEDICATIONS Unknown Medications RESULTS No Results PROCEDURES No Known procedures INSTRUCTIONS MEDICATIONS ADMINISTERED No Known Medications MEDICAL (GENERAL) HISTORY Type Description Date Medical History herpes Hospitalization History Childbirth only
--- OUTSIDE RECORDS SUMMARY | 2019-07-27 20:25 | XMS REPORT ---
Author Author Ya MARRERO Organization [facility] Address [address] [place] [address] Care Team Providers Care Typesetters Printer Name Role Phone DANYEL MARRERO Unavailable PROBLEMS Type Condition ICD9-CM Code FDU43-AB Code Onset Dates Condition S tatus SNOMED Code Problem Herpes simplex vulvovaginitis A60.04 Active 71260517 Problem History of anemia Z86.2 Active 27 2350245 Problem Irregular menses N92.6 Active 801 39935 ALLERGIES No Information ENCOUNTERS Encounter Location Date Diagnosis [place] [id number] [address] Jan, [facility] [address] [address] Dec, [facility] [address] [address] Dec, History of anemia Z86.2 [facility] [address] [place] [id number] [place] [address] Dec, Irregular menses N92.6 and S creening examination for sexually transmitted disease Z11.3 [facility] [address] [place] [id number] [place] [address] Dec, Irregular menses N92.6 ; His tory of anemia Z86.2 and Screening examination for sexually transmitted disease Z11.3 [facility] [address] [place] [id number] [place] [address] November, Herpes simplex vulvovaginiti s A60.04 [facility] [address] [place] [id number] [place] [address] November, [facility] [address] [facility] [id number] [address] [place] [address] 07 Mar, 2017 Knee strain, right, initial encounter S86.911A [place] [address] [address] [facility] [id number] [address] [place] [address] 14 Aug, 2016 Pelvic pain R10.2 [place] [address] [address] [place] [id number] [address] [place] [address] 08 Aug, 2016 Dyspareunia in female N94.10 and control counseling Z30.09 [facility] [address] [facility] [id number] [address] [place] [address] 13 Jun, 2016 Gastroenteritis K52.9 and Ac nora effusion of both middle ears H65.193 [place] [address] [address] [place] [id number] [address] [place] [address] 18 Apr, 2016 Swelling of pharynx J39.2 [place] [id number] [place] [address] 20 Jan, 2016 [place] [address] [place] [id number] [place] [address] Jan, [place] [address] [place] [id number] [place] [address] Dec, Routine gynecological examin ation Z01.419 ; Encounter for counseling regarding contraception Z30.9 and Encounter for initial prescription of contraceptive pills Z30.011 [place] [address] [address] [place] [id number] [address] [place] [address] November, Contraceptive management V25 .9 [place] [address] [address] [facility] [id number] [address] [place] [address] Oct, [place] [address] [place] [id number] [address] [place] [address] Oct, [place] [address] [address] [place] [id number] [address] [place] [address] Aug, [place] [address] [place] [address] 03 Aug, 2014 [facility] [address] [id number] [address] [place] [address], [place] [address] 30 Jun, 2014 [facility] [address] [id number] [address] [place] [address], [place] [address] Jun, [facility] [address] [id number] [address] [place] [address], [place] [address] Jun, [facility] [address] [id number] [address] [place] [address], [place] [address] Jun, [facility] [address] [id number] [address] [place] [address], [place] [address] Jun, [facility] [address] [id number] [address] [place] [address], [place] [address] Jun, [facility] [address] [id number] [address] [place] [address], [place] [address] Jun, [facility] [address] [id number] [address] [place] [address], [place] [address] Jun, [facility] [address] [id number] [address] [place] [address], [place] [address] Jun, [facility] [address] [id number] [address] [place] [address], [place] [address] Jun, [facility] [address] [id number] [address] [place] [address], [place] [address] Jun, [facility] [address] [id number] [address] [place] [address], [place] [address] May, [facility] [address] [id number] [address] [place] [address], [place] [address] May, [facility] [address] [id number] [address] [place] [address], [place] [address] May, [facility] [address] [id number] [address] [place] [address], [place] [address] May, [facility] [address] [id number] [address] [place] [address], [place] [address] Apr, [facility] [address] [id number] [address] [place] [address], [place] [address] Apr, [facility] [address] [id number] [address] [place] [address], [place] [address] Apr, [facility] [address] [id number] [address] [place] [address], [place] [address] Apr, [facility] [address] [id number] [address] [place] [address], [place] [address] Apr, [facility] [address] [id number] [address] [place] [address], [place] [address] Apr, [facility] [address] [id number] [address] [place] [address], [place] [address] Apr, [facility] [address] [id number] [address] [place] [address], [place] [address] Apr, [facility] [address] [id number] [address] [place] [address], [place] [address] Mar, [facility] [address] [id number] [address] [place] [address], [place] [address] Mar, [facility] [address] [id number] [address] [place] [address], [place] [address] Feb, [facility] [address] [id number] [address] [place] [address], [place] [address] Feb, [facility] [address] [id number] [address] [place] [address], [place] [address] Jan, [facility] [address] [id number] [address] [place] [address], [place] [address] Jan, [facility] [address] [id number] [address] [place] [address], [place] [address] Jan, [facility] [address] [id number] [address] [place] [address], [place] [address] Jan, [facility] [address] [id number] [address] [place] [address], [place] [address] Jan, [facility] [address] [id number] [address] [place] [address], [place] [address] Dec, [facility] [address] [id number] [address] [place] [address], [place] [address] Dec, [facility] [address] [id number] [address] [place] [address], [place] [address] Dec, [facility] [address] [id number] [address] [place] [address], [place] [address] Dec, [facility] [address] [id number] [address] [place] [address], [place] [address] Dec, [facility] [address] [id number] [address] [place] [address], [place] [address] Dec, [facility] [address] [id number] [address] [place] [address], [place] [address] Dec, [facility] [address] [id number] [address] [place] [address], [place] [address] Dec, [facility] [address] [id number] [address] [place] [address], [place] [address] Dec, [facility] [address] [id number] [address] [place] [address], [place] [address] November, [facility] [address] [id number] [address] [place] [address], [place] [address] November, [facility] [address] [id number] [address] [place] [address], [place] [address] November, [facility] [address] [id number] [address] [place] [address], [place] [address] November, [facility] [address] [id number] [address] [place] [address], [place] [address] November, [facility] [address] [id number] [address] [place] [address], [place] [address] November, [facility] [address] [id number] [address] [place] [address], [place] [address] November, [facility] [address] [id number] [address] [place] [address], [place] [address] November, [facility] [address] [id number] [address] [place] [address], [place] [address] November, [facility] [address] [id number] [address] [place] [address], [place] [address] November, [facility] [address] [id number] [address] [place] [address], [place] [address] Aug, [facility] [address] [id number] [address] [place] [address], [place] [address] Aug, [facility] [address] [id number] [address] [place] [address], [place] [address] Mar, [facility] [address] [id number] [address] [place] [address], [place] [address] Feb, [facility] [address] [id number] [address] [place] [address], [place] [address] Jan, [facility] [address] [id number] [address] [place] [address], [place] [address] Jan, [facility] [address] [id number] [address] [place] [address], [place] [address] Jan, [facility] [address] [id number] [address] [place] [address], [place] [address] Jan, [facility] [address] [id number] [address] [place] [address], [place] [address] Dec, [facility] [address] [id number] [address] [place] [address], [place] [address] Oct, [facility] [address] [id number] [address] [place] [address], [place] [address] Aug, [facility] [address] [id number] [address] [place] [address], [place] [address] Aug, [facility] [address] [id number] [address] [place] [address], [place] [address] 26 Aug, 2012 [facility] [address] [id number] [address] [place] [address], [place] [address] Aug, [facility] [address] [id number] [address] [place] [address], [place] [address] 18 Aug, 2012 [facility] [address] [id number] [address] [place] [address], [place] [address] 15 Aug, 2012 [facility] [address] [id number] [address] [place] [address], [place] [address] 14 Aug, 2012 [facility] [address] [id number] [address] [place] [address], [place] [address] Aug, [facility] [address] [id number] [address] [place] [address], [place] [address] Sep, [facility] [address] [id number] [address] [place] [address], [place] [address] Jul, [facility] [address] [id number] [address] [place] [address], [place] [address] Jul, [facility] [address] [id number] [address] [place] [address], [place] [address] Jun, [facility] [address] [id number] [address] [place] [address], [place] [address] Jun, [facility] [address] [id number] [address] [place] [address], [place] [address] Jun, [facility] [address] [id number] [address] [place] [address], [place] [address] 30 May, 2011 [facility] [address] [id number] [address] [place] [address], [place] [address] 16 May, 2011 [facility] [address] [id number] [address] [place] [address] May, [facility] [address] [id number] [address] [place] [address] Apr, [facility] [address] [id number] [address] [place] [address] Apr, [facility] [address] [facility] [id number] [address] [place] [address] Apr, [facility] [address] [facility] [id number] [address] [place] [address] Feb, [facility] [address] [facility] [id number] [address] [place] [address] Jan, [facility] [address] [facility] [id number] [address] [place] [address] Dec, IMMUNIZATIONS No Known Immunizations SOCIAL HISTORY Never Assessed REASON FOR VISIT Lab (walk-in) PLAN OF CARE VITAL SIGNS MEDICATIONS Unknown Medications RESULTS No Results PROCEDURES Procedure Date Ordered Result Body Site LAB NOT BILLED BY [facility] January 17, 2018 No Charge January 17, 2018 VENIPUNCT, ROUTINE* January 17, 2018 INSTRUCTIONS MEDICATIONS ADMINISTERED No Known Medications MEDICAL (GENERAL) HISTORY Type Description Date Medical History herpes Hospitalization History Childbirth only
--- OUTSIDE RECORDS SUMMARY | 2019-07-27 20:25 | XMS REPORT ---
Author Author Ya PALACIO [facility] eClinical[employer] Address Unknown Phone Unavailable Care Team Providers Care Coffee Shop Manager Name Role Phone ALAN PALACIO Unavailable Allergies No Known Allergies Problems Problem Type Condition Code Onset Dates Condition Statu s Problem Encounter for counseling regarding contraception Z30.9 Active Problem Encounter for initial prescription of contraceptive pi lls Z30.011 Active Problem Routine gynecological examination Z01.419 Active Medications Medication Code System Code Instructions Start Date End Date Status Dosage Amoxicillin [facility] [address]-52 500 MG Orally 2 times a day January 31, 2016 February 10, 2016 1 tablet Results No Known Results Summary Purpose eClinicalWorks Submission
--- OUTSIDE RECORDS SUMMARY | 2019-07-27 20:26 | XMS REPORT | Continuity of Care Document ---
Author Organization Unknown Address Unknown Phone Unavailable Allergies Active Description Code Type Severity Reaction Onset Reported/Identified Relationship to Patient Clinical Status Yes CODEINE SULFATE C ODEINE SULFATE SEVERE Yes codeine Drug Allergy 11/26/2010 Yes codeine Drug Allergy N/A N/A 11/26/2010 Yes codeine [id number] Drug Allergy Unknown N/A 07/08/2011 Medications There is no data. Problems Date Dx Coded Attending Type Code Diagnosis Diagnosed By 11/06/2010 V72.42 Pre gnancy Test Positive Result 11/06/2010 V72.42 Pre gnancy Test Positive Result 11/06/2010 MAURER DO, KIA K V72.42 Test Positive Result 11/06/2010 V72.42 Pre gnancy Test Positive Result 11/06/2010 V72.42 Pre gnancy Test Positive Result 11/06/2010 MAURER DO, KIA K V72.42 Test Positive Result 11/06/2010 MAURER DO, KIA K V72.42 Test Positive Result 11/06/2010 MEDINA BEARDENN FAHAD A V72.42 Test Positive Result 11/06/2010 MEDINA BEARDENN FAHAD A V72.42 Test Positive Result 11/06/2010 MEDINA TORRES FAHAD A V72.42 Test Positive Result 11/06/2010 MAURER DO, KIA K V72.42 Test Positive Result 11/06/2010 MAURER DO, KIA K V72.42 Test Positive Result 11/06/2010 MAURER DO, KIA K V72.42 Test Positive Result 11/06/2010 MAURER DO, KIA K V72.42 Test Positive Result 11/06/2010 MAURER DO, KIA K V72.42 Test Positive Result 11/06/2010 MAURER DO, KIA K V72.42 Test Positive Result 11/06/2010 MAURER DO, KIA K V72.42 Test Positive Result 11/06/2010 MAURER DO, KIA K V72.42 Test Positive Result 11/06/2010 MAURER DO, KIA K V72.42 Test Positive Result 11/06/2010 MAURER DO, KIA K V72.42 Test Positive Result 11/06/2010 YOEL CATALAN MD V72 .42 Test Positive Result 11/06/2010 [employer] LEAD WAREHOUSE ASSOCIATE, FAHAD A V72.42 Test Positive Result 11/26/2010 V22.0 PREG RENAE, NORMAL FIRST 11/26/2010 V22.0 PREG RENAE, NORMAL FIRST 11/26/2010 MAURER DO, KIA K V22.0 , NORMAL FIRST 11/26/2010 V22.0 PREG RENAE, NORMAL FIRST 11/26/2010 V22.0 PREG RENAE, NORMAL FIRST 11/26/2010 MAURER DO, KIA K V22.0 , NORMAL FIRST 11/26/2010 MAURER DO, KIA K V22.0 , NORMAL FIRST 11/26/2010 [employer] LEAD WAREHOUSE ASSOCIATE, FAHAD A V2 2.0 , NORMAL FIRST 11/26/2010 [employer] LEAD WAREHOUSE ASSOCIATE, FAHAD A V2 2.0 , NORMAL FIRST 11/26/2010 [employer] LEAD WAREHOUSE ASSOCIATE, FAHAD A V2 2.0 , NORMAL FIRST 11/26/2010 MAURER DO, KIA K V22.0 , NORMAL FIRST 11/26/2010 MAURER DO, KIA K V22.0 , NORMAL FIRST 11/26/2010 MAURER DO, KIA K V22.0 , NORMAL FIRST 11/26/2010 MAURER DO, KIA K V22.0 , NORMAL FIRST 11/26/2010 MAURER DO, KIA K V22.0 , NORMAL FIRST 11/26/2010 MAURER DO, KIA K V22.0 , NORMAL FIRST 11/26/2010 MAURER DO, KIA K V22.0 , NORMAL FIRST 11/26/2010 MAURER DO, KIA K V22.0 , NORMAL FIRST 11/26/2010 MAURER DO, KIA K V22.0 , NORMAL FIRST 11/26/2010 MAURER DO, KIA K V22.0 , NORMAL FIRST 11/26/2010 YOEL CATALAN MD V22 .0 , NORMAL FIRST 11/26/2010 [employer] LEAD WAREHOUSE ASSOCIATE, FAHAD A V2 2.0 , NORMAL FIRST 12/04/2010 656.13 RH NEGATIVE 12/04/2010 656.13 RH NEGATIVE 12/04/2010 MAURER DO, KIA K 656.13 RH NEGATIVE 12/04/2010 656.13 RH NEGATIVE 12/04/2010 656.13 RH NEGATIVE 12/04/2010 MAURER DO, KIA K 656.13 RH NEGATIVE 12/04/2010 MAURER DO, KIA K 656.13 RH NEGATIVE 12/04/2010 [employer] LEAD WAREHOUSE ASSOCIATE, FAHAD A 656.13 RH NEGATIVE 12/04/2010 MEDINA LEAD WAREHOUSE ASSOCIATE, FAHAD A 656.13 RH NEGATIVE 12/04/2010 MEDINA LEAD WAREHOUSE ASSOCIATE, FAHAD A 656.13 RH NEGATIVE 12/04/2010 MAURER DO, KIA K 656.13 RH NEGATIVE 12/04/2010 MAURER DO, KIA K 656.13 RH NEGATIVE 12/04/2010 MAURER DO, KIA K 656.13 RH NEGATIVE 12/04/2010 MAURER DO, KIA K 656.13 RH NEGATIVE 12/04/2010 MAURER DO, KIA K 656.13 RH NEGATIVE 12/04/2010 MAURER DO, KIA K 656.13 RH NEGATIVE 12/04/2010 MAURER DO, KIA K 656.13 RH NEGATIVE 12/04/2010 MAURER DO, KIA K 656.13 RH NEGATIVE 12/04/2010 MAURER DO, KIA K 656.13 RH NEGATIVE 12/04/2010 MAURER DO, KIA K 656.13 RH NEGATIVE 12/04/2010 YOEL CATALAN MD 656 .13 RH NEGATIVE 12/04/2010 [employer] LEAD WAREHOUSE ASSOCIATE, FAHAD A 656.13 RH NEGATIVE 12/17/2010 V72.31 Bass Fisher Exam, Routine 12/17/2010 V74.5 Std Screen 12/17/2010 V72.31 Bass Fisher Exam, Routine 12/17/2010 V74.5 Std Screen 12/17/2010 MAURER DO, KIA K V72.31 Bass Fisher Exam, Routine 12/17/2010 MAURER DO, KIA K V74.5 Std Screen 12/17/2010 V72.31 Bass Fisher Exam, Routine 12/17/2010 V74.5 Std Screen 12/17/2010 V72.31 Bass Fisher Exam, Routine 12/17/2010 V74.5 Std Screen 12/17/2010 MAURER DO, KIA K V72.31 Bass Fisher Exam, Routine 12/17/2010 MAURER DO, KIA K V74.5 Std Screen 12/17/2010 MAURER DO, KIA K V72.31 Bass Fisher Exam, Routine 12/17/2010 MAURER DO, KIA K V74.5 Std Screen 12/17/2010 [employer] LEAD WAREHOUSE ASSOCIATE, FAHAD A V72.31 Bass Fisher Exam, Routine 12/17/2010 MEDINA LEAD WAREHOUSE ASSOCIATE, FAHAD A V7 4.5 Std Screen 12/17/2010 MEDINA LEAD WAREHOUSE ASSOCIATE, FAHAD A V72.31 Bass Fisher Exam, Routine 12/17/2010 MEDINA LEAD WAREHOUSE ASSOCIATE, FAHAD A V7 4.5 Std Screen 12/17/2010 MEDINA LEAD WAREHOUSE ASSOCIATE, FAHAD A V72.31 Bass Fisher Exam, Routine 12/17/2010 MEDINA LEAD WAREHOUSE ASSOCIATE, FAHAD A V7 4.5 Std Screen 12/17/2010 MAURER DO, KIA K V72.31 Bass Fisher Exam, Routine 12/17/2010 MAURER DO, KIA K V74.5 Std Screen 12/17/2010 MAURER DO, KIA K V72.31 Bass Fisher Exam, Routine 12/17/2010 MAURER DO, KIA K V74.5 Std Screen 12/17/2010 MAURER DO, KIA K V72.31 Bass Fisher Exam, Routine 12/17/2010 MAURER DO, KIA K V74.5 Std Screen 12/17/2010 MAURER DO, KIA K V72.31 Bass Fisher Exam, Routine 12/17/2010 MAURER DO, KIA K V74.5 Std Screen 12/17/2010 MAURER DO, KIA K V72.31 Bass Fisher Exam, Routine 12/17/2010 MAURER DO, KIA K V74.5 Std Screen 12/17/2010 MAURER DO, KIA K V72.31 Bass Fisher Exam, Routine 12/17/2010 MAURER DO, KIA K V74.5 Std Screen 12/17/2010 MAURER DO, KIA K V72.31 Bass Fisher Exam, Routine 12/17/2010 MAURER DO, KIA K V74.5 Std Screen 12/17/2010 MAURER DO, KIA K V72.31 Bass Fisher Exam, Routine 12/17/2010 MAURER DO, KIA K V74.5 Std Screen 12/17/2010 MAURER DO, KIA K V72.31 Bass Fisher Exam, Routine 12/17/2010 MAURER DO, KIA K V74.5 Std Screen 12/17/2010 MAURER DO, KIA K V72.31 Bass Fisher Exam, Routine 12/17/2010 MAURER DO, KIA K V74.5 Std Screen 12/17/2010 HOSSEIN SEARS, YOEL Love V72 .31 Bass Fisher Exam, Routine 12/17/2010 HOSSEIN SEARS, YOEL Love V74 .5 Std Screen 12/17/2010 [employer] LEAD WAREHOUSE ASSOCIATE, FAHAD A V72.31 Bass Fisher Exam, Routine 12/17/2010 [employer] LEAD WAREHOUSE ASSOCIATE, FAHAD A V7 4.5 Std Screen 01/07/[address] OF - ANEMIA 01/07/[address] OF - ANEMIA 01/07/2011 AMURER DO, KIA K 648.20 COMPL OF - ANEMIA 01/07/[address] OF - ANEMIA 01/07/[address] OF - ANEMIA 01/07/2011 MAURER DO, KIA K 648.20 COMPL OF - ANEMIA 01/07/2011 MAURER DO, KIA K 648.20 COMPL OF - ANEMIA 01/07/2011 [employer] LEAD WAREHOUSE ASSOCIATE, FAHAD A 648.20 COMPL OF - ANEMIA 01/07/2011 MEDINA LEAD WAREHOUSE ASSOCIATE, FAHAD A 648.20 COMPL OF - ANEMIA 01/07/2011 MEDINA LEAD WAREHOUSE ASSOCIATE, FAHAD A 648.20 COMPL OF - ANEMIA 01/07/2011 MAURER DO, KIA K 648.20 COMPL OF - ANEMIA 01/07/2011 MAURER DO, KIA K 648.20 COMPL OF - ANEMIA 01/07/2011 MAURER DO, KIA K 648.20 COMPL OF - ANEMIA 01/07/2011 MAURER DO, KIA K 648.20 COMPL OF - ANEMIA 01/07/2011 MAURER DO, KIA K 648.20 COMPL OF - ANEMIA 01/07/2011 MAURER DO, KIA K 648.20 COMPL OF - ANEMIA 01/07/2011 MAURER DO, KIA K 648.20 COMPL OF - ANEMIA 01/07/2011 MAURER DO, KIA K 648.20 COMPL OF - ANEMIA 01/07/2011 MAURER DO, KIA K 648.20 COMPL OF - ANEMIA 01/07/2011 KIA MAURER DO 648.20 COMPL OF - ANEMIA 01/07/2011 YOEL CATALAN MD 648 .20 COMPL OF - ANEMIA 01/07/2011 FAHAD HANEY APRN 648.20 COMPL OF - ANEMIA 03/04/2011 V23.83 SUP ERVISION OF HIGH-RISK WITH YOUNG PRIMIGRAVIDA 03/04/2011 V23.83 SUP ERVISION OF HIGH-RISK WITH YOUNG PRIMIGRAVIDA 03/04/2011 KIA MAURER DO V23.83 SUPERVISION OF HIGH-RISK WITH YOUNG PRIMIGRAVIDA 03/04/2011 V23.83 SUP ERVISION OF HIGH-RISK WITH YOUNG PRIMIGRAVIDA 03/04/2011 V23.83 SUP ERVISION OF HIGH-RISK WITH YOUNG PRIMIGRAVIDA 03/04/2011 KIA MAURER DO V23.83 SUPERVISION OF HIGH-RISK WITH YOUNG PRIMIGRAVIDA 03/04/2011 KIA MAURER DO V23.83 SUPERVISION OF HIGH-RISK WITH YOUNG PRIMIGRAVIDA 03/04/2011 FAHAD HANEY APRN V23.83 SUPERVISION OF HIGH-RISK WITH YOUNG PRIMIGRA JENNA 03/04/2011 FAHAD HANEY APRN V23.83 SUPERVISION OF HIGH-RISK WITH YOUNG PRIMIGRA JENNA 03/04/2011 FAHAD HANEY APRN V23.83 SUPERVISION OF HIGH-RISK WITH YOUNG PRIMIGRA JENNA 03/04/2011 KIA MAURER DO V23.83 SUPERVISION OF HIGH-RISK WITH YOUNG PRIMIGRAVIDA 03/04/2011 KIA MAURER DO V23.83 SUPERVISION OF HIGH-RISK WITH YOUNG PRIMIGRAVIDA 03/04/2011 KIA MAURER DO V23.83 SUPERVISION OF HIGH-RISK WITH YOUNG PRIMIGRAVIDA 03/04/2011 KIA MAURER DO V23.83 SUPERVISION OF HIGH-RISK WITH YOUNG PRIMIGRAVIDA 03/04/2011 KIA MAURER DO V23.83 SUPERVISION OF HIGH-RISK WITH YOUNG PRIMIGRAVIDA 03/04/2011 KIA MAURER DO V23.83 SUPERVISION OF HIGH-RISK WITH YOUNG PRIMIGRAVIDA 03/04/2011 MAURER DO, KIA K V23.83 SUPERVISION OF HIGH-RISK WITH YOUNG PRIMIGRAVIDA 03/04/2011 MAURER DO, KIA K V23.83 SUPERVISION OF HIGH-RISK WITH YOUNG PRIMIGRAVIDA 03/04/2011 MAURER DO, KIA K V23.83 SUPERVISION OF HIGH-RISK WITH YOUNG PRIMIGRAVIDA 03/04/2011 MAURER DO, KIA K V23.83 SUPERVISION OF HIGH-RISK WITH YOUNG PRIMIGRAVIDA 03/04/2011 YOEL CAATLAN MD V23 .83 SUPERVISION OF HIGH-RISK WITH YOUNG PRIMIGRAVIDA 03/04/2011 [employer] LEAD WAREHOUSE ASSOCIATE, FAHAD A V23.83 SUPERVISION OF HIGH-RISK WITH YOUNG PRIMIGRA JENNA 03/21/2011 V01.6 Cont act With Or Exposure To Venereal Diseases 03/21/2011 V01.6 Cont act With Or Exposure To Venereal Diseases 03/21/2011 MAURER DO, KIA K V01.6 Contact With Or Exposure To Venereal Diseases 03/21/2011 V01.6 Cont act With Or Exposure To Venereal Diseases 03/21/2011 V01.6 Cont act With Or Exposure To Venereal Diseases 03/21/2011 MAURER DO, KIA K V01.6 Contact With Or Exposure To Venereal Diseases 03/21/2011 MAURER DO, KIA K V01.6 Contact With Or Exposure To Venereal Diseases 03/21/2011 [employer] LEAD WAREHOUSE ASSOCIATE, FAHAD A V0 1.6 Contact With Or Exposure To Venereal Diseases 03/21/2011 MEDINA LEAD WAREHOUSE ASSOCIATE, FAHAD A V0 1.6 Contact With Or Exposure To Venereal Diseases 03/21/2011 MEDINA LEAD WAREHOUSE ASSOCIATE, FAHAD A V0 1.6 Contact With Or Exposure To Venereal Diseases 03/21/2011 MAURER DO, KIA K V01.6 Contact With Or Exposure To Venereal Diseases 03/21/2011 MAURER DO, KIA K V01.6 Contact With Or Exposure To Venereal Diseases 03/21/2011 MAURER DO, KIA K V01.6 Contact With Or Exposure To Venereal Diseases 03/21/2011 MAURER DO, KIA K V01.6 Contact With Or Exposure To Venereal Diseases 03/21/2011 MAURER DO, KIA K V01.6 Contact With Or Exposure To Venereal Diseases 03/21/2011 MAURER DO, KIA K V01.6 Contact With Or Exposure To Venereal Diseases 03/21/2011 MAURER DO, KIA K V01.6 Contact With Or Exposure To Venereal Diseases 03/21/2011 MAURER DO, KIA K V01.6 Contact With Or Exposure To Venereal Diseases 03/21/2011 MAURER DO, KIA K V01.6 Contact With Or Exposure To Venereal Diseases 03/21/2011 MAURER DO, KIA K V01.6 Contact With Or Exposure To Venereal Diseases 03/21/2011 HOSSEIN SEARS, YOEL Love V01 .6 Contact With Or Exposure To Venereal Diseases 03/21/2011 FAHAD HANEY APRN V0 1.6 Contact With Or Exposure To Venereal Diseases 04/02/2011 099.50 Oth er Venereal Diseases Due To Chlamydia Trachomatis Unspecified Site 04/02/[address] Of - Std Unspecified 04/02/2011 099.50 Oth er Venereal Diseases Due To Chlamydia Trachomatis Unspecified Site 04/02/[address] Of - Std Unspecified 04/02/2011 KIA MAURER DO 099.50 Other Venereal Diseases Due To Chlamydia Trachomatis Unspecified Site 04/02/2011 KIA MAURER DO 647.20 Compl Of - Std Unspecified 04/02/2011 099.50 Oth er Venereal Diseases Due To Chlamydia Trachomatis Unspecified Site 04/02/[address] Of - Std Unspecified 04/02/2011 099.50 Oth er Venereal Diseases Due To Chlamydia Trachomatis Unspecified Site 04/02/[address] Of - Std Unspecified 04/02/2011 KIA MAURER DO K 099.50 Other Venereal Diseases Due To Chlamydia Trachomatis Unspecified Site 04/02/2011 KIA MAURER DO 647.20 Compl Of - Std Unspecified 04/02/2011 KIA MAURER DO K 099.50 Other Venereal Diseases Due To Chlamydia Trachomatis Unspecified Site 04/02/2011 KIA MAURER DO 647.20 Compl Of - Std Unspecified 04/02/2011 [employer] LEAD WAREHOUSE ASSOCIATE, FAHAD A 099.50 Other Venereal Diseases Due To Chlamydia Trachomatis U nspecified Site 04/02/2011 MEDINA LEAD WAREHOUSE ASSOCIATE, FAHAD A 647.20 Compl Of - Std Unspecified 04/02/2011 MEDINA LEAD WAREHOUSE ASSOCIATE, FAHAD A 099.50 Other Venereal Diseases Due To Chlamydia Trachomatis U nspecified Site 04/02/2011 MEDINA LEAD WAREHOUSE ASSOCIATE, FAHAD A 647.20 Compl Of - Std Unspecified 04/02/2011 MEDINA LEAD WAREHOUSE ASSOCIATE, FAHAD A 099.50 Other Venereal Diseases Due To Chlamydia Trachomatis U nspecified Site 04/02/2011 MEDINA LEAD WAREHOUSE ASSOCIATE, FAHAD A 647.20 Compl Of - Std Unspecified 04/02/2011 MAURER DO, KIA K 099.50 Other Venereal Diseases Due To Chlamydia Trachomatis Unspecified Site 04/02/2011 MAURER DO, KIA K 647.20 Compl Of - Std Unspecified 04/02/2011 MAURER DO, KIA K 099.50 Other Venereal Diseases Due To Chlamydia Trachomatis Unspecified Site 04/02/2011 MAURER DO, KIA K 647.20 Compl Of - Std Unspecified 04/02/2011 MAURER DO, KIA K 099.50 Other Venereal Diseases Due To Chlamydia Trachomatis Unspecified Site 04/02/2011 MAURER DO, KIA K 647.20 Compl Of - Std Unspecified 04/02/2011 MAURER DO, KIA K 099.50 Other Venereal Diseases Due To Chlamydia Trachomatis Unspecified Site 04/02/2011 MAURER DO, KIA K 647.20 Compl Of - Std Unspecified 04/02/2011 MAURER DO, KIA K 099.50 Other Venereal Diseases Due To Chlamydia Trachomatis Unspecified Site 04/02/2011 MAURER DO, KIA K 647.20 Compl Of - Std Unspecified 04/02/2011 MAURER DO, KIA K 099.50 Other Venereal Diseases Due To Chlamydia Trachomatis Unspecified Site 04/02/2011 MAURER DO, KIA K 647.20 Compl Of - Std Unspecified 04/02/2011 MAURER DO, KIA K 099.50 Other Venereal Diseases Due To Chlamydia Trachomatis Unspecified Site 04/02/2011 MAURER DO, KIA K 647.20 Compl Of - Std Unspecified 04/02/2011 MAURER DO, KIA K 099.50 Other Venereal Diseases Due To Chlamydia Trachomatis Unspecified Site 04/02/2011 KIA MAURER DO K 647.20 Compl Of - Std Unspecified 04/02/2011 KIA MAURER DO K 099.50 Other Venereal Diseases Due To Chlamydia Trachomatis Unspecified Site 04/02/2011 KIA MAURRE DO K 647.20 Compl Of - Std Unspecified 04/02/2011 KIA MAURER DO K 099.50 Other Venereal Diseases Due To Chlamydia Trachomatis Unspecified Site 04/02/2011 KIA MAURER DO 647.20 Compl Of - Std Unspecified 04/02/2011 YOEL CATALAN MD 099 .50 Other Venereal Diseases Due To Chlamydia Trachomatis Unspecified Site 04/02/2011 YOEL CATALAN MD 647 .20 Compl Of - Std Unspecified 04/02/2011 FAHAD HANEY APRN 099.50 Other Venereal Diseases Due To Chlamydia Trachomatis U nspecified Site 04/02/2011 FAHAD HANEY APRN 647.20 Compl Of - Std Unspecified 04/27/2011 Ot V07.2 05/20/2011 V04.81 Flu Dx (3 Yrs And Above, Im) 05/20/2011 V04.81 Flu Dx (3 Yrs And Above, Im) 05/20/2011 KIA MAURER DO V04.81 Flu Dx (3 Yrs And Above, Im) 05/20/2011 V04.81 Flu Dx (3 Yrs And Above, Im) 05/20/2011 V04.81 Flu Dx (3 Yrs And Above, Im) 05/20/2011 KIA MAURER DO V04.81 Flu Dx (3 Yrs And Above, Im) 05/20/2011 KIA MAURER DO V04.81 Flu Dx (3 Yrs And Above, Im) 05/20/2011 FAHAD HANYE APRN A V04.81 Flu Dx (3 Yrs And Above, Im) 05/20/2011 FAHAD HANEY APRN A V04.81 Flu Dx (3 Yrs And Above, Im) 05/20/2011 FAHAD HANEY APRN A V04.81 Flu Dx (3 Yrs And Above, Im) 05/20/2011 MAURER DO, KIA K V04.81 Flu Dx (3 Yrs And Above, Im) 05/20/2011 MAURER DO, KIA K V04.81 Flu Dx (3 Yrs And Above, Im) 05/20/2011 MAURER DO, KIA K V04.81 Flu Dx (3 Yrs And Above, Im) 05/20/2011 MAURER DO, KIA K V04.81 Flu Dx (3 Yrs And Above, Im) 05/20/2011 MAURER DO, KIA K V04.81 Flu Dx (3 Yrs And Above, Im) 05/20/2011 MAURER DO, KIA K V04.81 Flu Dx (3 Yrs And Above, Im) 05/20/2011 MAURER DO, KIA K V04.81 Flu Dx (3 Yrs And Above, Im) 05/20/2011 MAURER DO, KIA K V04.81 Flu Dx (3 Yrs And Above, Im) 05/20/2011 MAURER DO, KIA K V04.81 Flu Dx (3 Yrs And Above, Im) 05/20/2011 MAURER DO, KIA K V04.81 Flu Dx (3 Yrs And Above, Im) 05/20/2011 YOEL CATALAN MD V04 .81 Flu Dx (3 Yrs And Above, Im) 05/20/2011 FAHAD HANEY APRN V04.81 Flu Dx (3 Yrs And Above, Im) 06/24/2011 V25.09 OTH ER GENERAL COUNSELING AND ADVICE ON CONTRACEPTIVE MANAGEMENT 06/24/2011 V25.09 OTH ER GENERAL COUNSELING AND ADVICE ON CONTRACEPTIVE MANAGEMENT 06/24/2011 KIA MAURER DO V25.09 OTHER GENERAL COUNSELING AND ADVICE ON CONTRACEPTIVE MANAGEMENT 06/24/2011 V25.09 OTH ER GENERAL COUNSELING AND ADVICE ON CONTRACEPTIVE MANAGEMENT 06/24/2011 V25.09 OTH ER GENERAL COUNSELING AND ADVICE ON CONTRACEPTIVE MANAGEMENT 06/24/2011 KIA MAURER DO V25.09 OTHER GENERAL COUNSELING AND ADVICE ON CONTRACEPTIVE MANAGEMENT 06/24/2011 KIA MAURER DO V25.09 OTHER GENERAL COUNSELING AND ADVICE ON CONTRACEPTIVE MANAGEMENT 06/24/2011 FAHAD HANEY APRN V25.09 OTHER GENERAL COUNSELING AND ADVICE ON CONTRACEPTIVE M ANAGEMENT 06/24/2011 FAHAD HANEY APRN V25.09 OTHER GENERAL COUNSELING AND ADVICE ON CONTRACEPTIVE M ANAGEMENT 06/24/2011 FAHAD HANEY APRN V25.09 OTHER GENERAL COUNSELING AND ADVICE ON CONTRACEPTIVE M ANAGEMENT 06/24/2011 KIA MAURER DO V25.09 OTHER GENERAL COUNSELING AND ADVICE ON CONTRACEPTIVE MANAGEMENT 06/24/2011 KIA MAURER DO V25.09 OTHER GENERAL COUNSELING AND ADVICE ON CONTRACEPTIVE MANAGEMENT 06/24/2011 YON MAURER DOA K V25.09 OTHER GENERAL COUNSELING AND ADVICE ON CONTRACEPTIVE MANAGEMENT 06/24/2011 KIA MAURER DO K V25.09 OTHER GENERAL COUNSELING AND ADVICE ON CONTRACEPTIVE MANAGEMENT 06/24/2011 MAURER YON DUNCANA K V25.09 OTHER GENERAL COUNSELING AND ADVICE ON CONTRACEPTIVE MANAGEMENT 06/24/2011 YON MAURER DOA K V25.09 OTHER GENERAL COUNSELING AND ADVICE ON CONTRACEPTIVE MANAGEMENT 06/24/2011 YON MAURER DOA K V25.09 OTHER GENERAL COUNSELING AND ADVICE ON CONTRACEPTIVE MANAGEMENT 06/24/2011 YON MAURER DOA K V25.09 OTHER GENERAL COUNSELING AND ADVICE ON CONTRACEPTIVE MANAGEMENT 06/24/2011 YON MAURER DOA Crescencio V25.09 OTHER GENERAL COUNSELING AND ADVICE ON CONTRACEPTIVE MANAGEMENT 06/24/2011 YON MAURER DOA K V25.09 OTHER GENERAL COUNSELING AND ADVICE ON CONTRACEPTIVE MANAGEMENT 06/24/2011 HOSSEIN SEARS, YOEL Love V25 .09 OTHER GENERAL COUNSELING AND ADVICE ON CONTRACEPTIVE MANAGEMENT 06/24/2011 FAHAD HANEY APRN V25.09 OTHER GENERAL COUNSELING AND ADVICE ON CONTRACEPTIVE M ANAGEMENT 07/02/2011 112.1 CAND IDIASIS OF VULVA AND VAGINA 07/02/[address] OF - UTI 07/02/2011 112.1 CAND IDIASIS OF VULVA AND VAGINA 07/02/[address] OF - UTI 07/02/2011 KIA MAURER DO 112.1 CANDIDIASIS OF VULVA AND VAGINA 07/02/2011 KIA MAURER DO 646.60 COMPL OF - UTI 07/02/2011 112.1 CAND IDIASIS OF VULVA AND VAGINA 07/02/[address] OF - UTI 07/02/2011 112.1 CAND IDIASIS OF VULVA AND VAGINA 07/02/[address] OF - UTI 07/02/2011 KIA MAURER DO 112.1 CANDIDIASIS OF VULVA AND VAGINA 07/02/2011 MAURER DO, KIA K 646.60 COMPL OF - UTI 07/02/2011 MAURER DO, KIA K 112.1 CANDIDIASIS OF VULVA AND VAGINA 07/02/2011 MAURER DO, KIA K 646.60 COMPL OF - UTI 07/02/2011 [employer] LEAD WAREHOUSE ASSOCIATE, FHAAD A 11 2.1 CANDIDIASIS OF VULVA AND VAGINA 07/02/2011 [employer]INA LEAD WAREHOUSE ASSOCIATE, FAHAD A 646.60 COMPL OF - UTI 07/02/2011 [employer] LEAD WAREHOUSE ASSOCIATE, FAHAD A 11 2.1 CANDIDIASIS OF VULVA AND VAGINA 07/02/2011 MEDINA LEAD WAREHOUSE ASSOCIATE, FAHAD A 646.60 COMPL OF - UTI 07/02/2011 MEDINA LEAD WAREHOUSE ASSOCIATE, FAHAD A 11 2.1 CANDIDIASIS OF VULVA AND VAGINA 07/02/2011 MEDINA LEAD WAREHOUSE ASSOCIATE, FAHAD A 646.60 COMPL OF - UTI 07/02/2011 MAURER DO, KIA K 112.1 CANDIDIASIS OF VULVA AND VAGINA 07/02/2011 MAURER DO, KIA K 646.60 COMPL OF - UTI 07/02/2011 MAURER DO, KIA K 112.1 CANDIDIASIS OF VULVA AND VAGINA 07/02/2011 MAURER DO, KIA K 646.60 COMPL OF - UTI 07/02/2011 MAURER DO, KIA K 112.1 CANDIDIASIS OF VULVA AND VAGINA 07/02/2011 MAURER DO, KIA K 646.60 COMPL OF - UTI 07/02/2011 MAURER DO, KIA K 112.1 CANDIDIASIS OF VULVA AND VAGINA 07/02/2011 MAURER DO, KIA K 646.60 COMPL OF - UTI 07/02/2011 MAURER DO, KIA K 112.1 CANDIDIASIS OF VULVA AND VAGINA 07/02/2011 MAURER DO, KIA K 646.60 COMPL OF - UTI 07/02/2011 MAURER DO, KIA K 112.1 CANDIDIASIS OF VULVA AND VAGINA 07/02/2011 MAURER DO, KIA K 646.60 COMPL OF - UTI 07/02/2011 MAURER DO, KIA K 112.1 CANDIDIASIS OF VULVA AND VAGINA 07/02/2011 MAURER DO, KIA K 646.60 COMPL OF - UTI 07/02/2011 MAURER DO, KIA K 112.1 CANDIDIASIS OF VULVA AND VAGINA 07/02/2011 MAURER DO, KIA K 646.60 COMPL OF - UTI 07/02/2011 KIA MAURER DO 112.1 CANDIDIASIS OF VULVA AND VAGINA 07/02/2011 KIA MAURER DO 646.60 COMPL OF - UTI 07/02/2011 KIA MAURER DO 112.1 CANDIDIASIS OF VULVA AND VAGINA 07/02/2011 KIA MAURER DO 646.60 COMPL OF - UTI 07/02/2011 YOEL CATALAN MD 112 .1 CANDIDIASIS OF VULVA AND VAGINA 07/02/2011 YOEL CATALAN MD 646 .60 COMPL OF - UTI 07/02/2011 FAHAD HANEY APRN A 11 2.1 CANDIDIASIS OF VULVA AND VAGINA 07/02/2011 FAHAD HANEY APRN A 646.60 COMPL OF - UTI 07/10/2011 Ot 285.9 07/10/2011 Ot 599.0 07/10/2011 Ot 646.61 07/10/2011 Ot 648.21 07/10/2011 Ot 659.71 07/10/2011 Ot V06.1 07/10/2011 Ot V07.2 07/10/2011 Ot V27.0 08/20/2011 V24.2 ROUT INE FOLLOW-UP 08/20/2011 V76.10 JIM AST SCREENING UNSPECIFIED 08/20/2011 V24.2 ROUT INE FOLLOW-UP 08/20/2011 V76.10 JIM AST SCREENING UNSPECIFIED 08/20/2011 KIA MAURER DO V24.2 ROUTINE FOLLOW-UP 08/20/2011 KIA MAURER DO V76.10 BREAST SCREENING UNSPECIFIED 08/20/2011 V24.2 ROUT INE FOLLOW-UP 08/20/2011 V76.10 JIM AST SCREENING UNSPECIFIED 08/20/2011 V24.2 ROUT INE FOLLOW-UP 08/20/2011 V76.10 JIM AST SCREENING UNSPECIFIED 08/20/2011 KIA MAURER DO V24.2 ROUTINE FOLLOW-UP 08/20/2011 KIA MAURER DO V76.10 BREAST SCREENING UNSPECIFIED 08/20/2011 KIA MAURER DO V24.2 ROUTINE FOLLOW-UP 08/20/2011 KIA MAURER DO V76.10 BREAST SCREENING UNSPECIFIED 08/20/2011 MEDINA LEAD WAREHOUSE ASSOCIATE, FAHAD A V2 4.2 ROUTINE FOLLOW-UP 08/20/2011 MEDINA LEAD WAREHOUSE ASSOCIATE, FAHAD A V76.10 BREAST SCREENING UNSPECIFIED 08/20/2011 MEDINA LEAD WAREHOUSE ASSOCIATE, FAHAD A V2 4.2 ROUTINE FOLLOW-UP 08/20/2011 MEDINA LEAD WAREHOUSE ASSOCIATE, FAHAD A V76.10 BREAST SCREENING UNSPECIFIED 08/20/2011 MEDINA LEAD WAREHOUSE ASSOCIATE, FAHAD A V2 4.2 ROUTINE FOLLOW-UP 08/20/2011 MEDINA LEAD WAREHOUSE ASSOCIATE, FAHAD A V76.10 BREAST SCREENING UNSPECIFIED 08/20/2011 MAURER DO, KIA K V24.2 ROUTINE FOLLOW-UP 08/20/2011 MAURER DO, KIA K V76.10 BREAST SCREENING UNSPECIFIED 08/20/2011 MAURER DO, KIA K V24.2 ROUTINE FOLLOW-UP 08/20/2011 MAURER DO, KIA K V76.10 BREAST SCREENING UNSPECIFIED 08/20/2011 MAURER DO, KIA K V24.2 ROUTINE FOLLOW-UP 08/20/2011 MAURER DO, KIA K V76.10 BREAST SCREENING UNSPECIFIED 08/20/2011 MAUERR DO, KIA K V24.2 ROUTINE FOLLOW-UP 08/20/2011 MAURER DO, KIA K V76.10 BREAST SCREENING UNSPECIFIED 08/20/2011 MAURER DO, KIA K V24.2 ROUTINE FOLLOW-UP 08/20/2011 MAURER DO, KIA K V76.10 BREAST SCREENING UNSPECIFIED 08/20/2011 MAURER DO, KIA K V24.2 ROUTINE FOLLOW-UP 08/20/2011 MAURER DO, KIA K V76.10 BREAST SCREENING UNSPECIFIED 08/20/2011 MAURER DO, KIA K V24.2 ROUTINE FOLLOW-UP 08/20/2011 MAURER DO, KIA K V76.10 BREAST SCREENING UNSPECIFIED 08/20/2011 MAURER DO, KIA K V24.2 ROUTINE FOLLOW-UP 08/20/2011 MAURER DO, KIA K V76.10 BREAST SCREENING UNSPECIFIED 08/20/2011 MAURER DO, KIA K V24.2 ROUTINE FOLLOW-UP 08/20/2011 MAURER DO, KIA K V76.10 BREAST SCREENING UNSPECIFIED 08/20/2011 MAURER DO, KIA K V24.2 ROUTINE FOLLOW-UP 08/20/2011 MAURER DO, KIA K V76.10 BREAST SCREENING UNSPECIFIED 08/20/2011 YOEL CATALAN MD V24 .2 ROUTINE FOLLOW-UP 08/20/2011 YOEL CATALAN MD V76 .10 BREAST SCREENING UNSPECIFIED 08/20/2011 MEDINAFAHAD VICTOR APRN A V2 4.2 ROUTINE FOLLOW-UP 08/20/2011 FAHAD HANEY APRN A V76.10 BREAST SCREENING UNSPECIFIED 09/06/2012 054.10 HER PES SIMPLEX GENITAL 09/06/2012 054.10 HER PES SIMPLEX GENITAL 09/06/2012 MAURER DO, KIA K 054.10 HERPES SIMPLEX GENITAL 09/06/2012 054.10 HER PES SIMPLEX GENITAL 09/06/2012 054.10 HER PES SIMPLEX GENITAL 09/06/2012 MAURER DO, KIA K 054.10 HERPES SIMPLEX GENITAL 09/06/2012 MAURER DO, KIA K 054.10 HERPES SIMPLEX GENITAL 09/06/2012 JACOB HANEY APRNIDI A 054.10 HERPES SIMPLEX GENITAL 09/06/2012 JACOB HANEY APRNIDI A 054.10 HERPES SIMPLEX GENITAL 09/06/2012 MEDINA TORRES FAHAD A 054.10 HERPES SIMPLEX GENITAL 09/06/2012 MAURER DO, KIA K 054.10 HERPES SIMPLEX GENITAL 09/06/2012 MAURER DO, KIA K 054.10 HERPES SIMPLEX GENITAL 09/06/2012 MAURER DO, KIA K 054.10 HERPES SIMPLEX GENITAL 09/06/2012 MAURER DO, KIA K 054.10 HERPES SIMPLEX GENITAL 09/06/2012 MAURER DO, KIA K 054.10 HERPES SIMPLEX GENITAL 09/06/2012 MAURER DO, KIA K 054.10 HERPES SIMPLEX GENITAL 09/06/2012 MAURER DO, KIA K 054.10 HERPES SIMPLEX GENITAL 09/06/2012 MAURER DO, KIA K 054.10 HERPES SIMPLEX GENITAL 09/06/2012 MAURER DO, KIA K 054.10 HERPES SIMPLEX GENITAL 09/06/2012 MAURER DO, KIA K 054.10 HERPES SIMPLEX GENITAL 09/06/2012 YOEL CATALAN MD N 054 .10 HERPES SIMPLEX GENITAL 09/06/2012 MEDINA TORRES FAHAD A 054.10 HERPES SIMPLEX GENITAL 01/03/2013 840.8 SPRA IN OF OTHER SPECIFIED SITES OF SHOULDER AND UPPER ARM 01/03/2013 840.8 SPRA IN OF OTHER SPECIFIED SITES OF SHOULDER AND UPPER ARM 01/03/2013 MAURER DO, KIA K 840.8 SPRAIN OF OTHER SPECIFIED SITES OF SHOULDER AND UPPER ARM 01/03/2013 MAURER DO, KIA K 840.8 SPRAIN OF OTHER SPECIFIED SITES OF SHOULDER AND UPPER ARM 01/03/2013 MEDINA LEAD WAREHOUSE ASSOCIATE, FAHAD A 84 0.8 SPRAIN OF OTHER SPECIFIED SITES OF SHOULDER AND UPPER ARM 01/03/2013 MEDINA LEAD WAREHOUSE ASSOCIATE, FAHAD A 84 0.8 SPRAIN OF OTHER SPECIFIED SITES OF SHOULDER AND UPPER ARM 01/03/2013 MEDINA LEAD WAREHOUSE ASSOCIATE, FAHAD A 84 0.8 SPRAIN OF OTHER SPECIFIED SITES OF SHOULDER AND UPPER ARM 01/03/2013 MAURER DO, KIA K 840.8 SPRAIN OF OTHER SPECIFIED SITES OF SHOULDER AND UPPER ARM 01/03/2013 MAURER DO, KIA K 840.8 SPRAIN OF OTHER SPECIFIED SITES OF SHOULDER AND UPPER ARM 01/03/2013 MAURER DO, KIA K 840.8 SPRAIN OF OTHER SPECIFIED SITES OF SHOULDER AND UPPER ARM 01/03/2013 MAURER DO, KIA K 840.8 SPRAIN OF OTHER SPECIFIED SITES OF SHOULDER AND UPPER ARM 01/03/2013 MAURER DO, KIA K 840.8 SPRAIN OF OTHER SPECIFIED SITES OF SHOULDER AND UPPER ARM 01/03/2013 MAURER DO, KIA K 840.8 SPRAIN OF OTHER SPECIFIED SITES OF SHOULDER AND UPPER ARM 01/03/2013 MAURER DO, KIA K 840.8 SPRAIN OF OTHER SPECIFIED SITES OF SHOULDER AND UPPER ARM 01/03/2013 MAURER DO, KIA K 840.8 SPRAIN OF OTHER SPECIFIED SITES OF SHOULDER AND UPPER ARM 01/03/2013 MAURER DO, KIA K 840.8 SPRAIN OF OTHER SPECIFIED SITES OF SHOULDER AND UPPER ARM 01/03/2013 MAURER DO, KIA K 840.8 SPRAIN OF OTHER SPECIFIED SITES OF SHOULDER AND UPPER ARM 01/03/2013 YOEL CATALAN MD 840 .8 SPRAIN OF OTHER SPECIFIED SITES OF SHOULDER AND UPPER ARM 01/03/2013 MEDINA LEAD WAREHOUSE ASSOCIATE, FAHAD A 84 0.8 SPRAIN OF OTHER SPECIFIED SITES OF SHOULDER AND UPPER ARM 02/17/2013 616.10 VAG INITIS AND VULVOVAGINITIS UNSPECIFIED 02/17/2013 MAURER DO, KIA K 616.10 VAGINITIS AND VULVOVAGINITIS UNSPECIFIED 02/17/2013 MAURER DO, KIA K 616.10 VAGINITIS AND VULVOVAGINITIS UNSPECIFIED 02/17/2013 MEDINA LEAD WAREHOUSE ASSOCIATE, FAHAD A 616.10 VAGINITIS AND VULVOVAGINITIS UNSPECIFIED 02/17/2013 MEDINA LEAD WAREHOUSE ASSOCIATE, FAHAD A 616.10 VAGINITIS AND VULVOVAGINITIS UNSPECIFIED 02/17/2013 MEDINA LEAD WAREHOUSE ASSOCIATE, FAHAD A 616.10 VAGINITIS AND VULVOVAGINITIS UNSPECIFIED 02/17/2013 MAURER DO, KIA K 616.10 VAGINITIS AND VULVOVAGINITIS UNSPECIFIED 02/17/2013 MAURER DO, KIA K 616.10 VAGINITIS AND VULVOVAGINITIS UNSPECIFIED 02/17/2013 MAURER DO, KIA K 616.10 VAGINITIS AND VULVOVAGINITIS UNSPECIFIED 02/17/2013 MAURER DO, KIA K 616.10 VAGINITIS AND VULVOVAGINITIS UNSPECIFIED 02/17/2013 MAURER DO, KIA K 616.10 VAGINITIS AND VULVOVAGINITIS UNSPECIFIED 02/17/2013 MAURER DO, KIA K 616.10 VAGINITIS AND VULVOVAGINITIS UNSPECIFIED 02/17/2013 MAURER DO, KIA K 616.10 VAGINITIS AND VULVOVAGINITIS UNSPECIFIED 02/17/2013 MAURER DO, KIA K 616.10 VAGINITIS AND VULVOVAGINITIS UNSPECIFIED 02/17/2013 MAURER DO, KIA K 616.10 VAGINITIS AND VULVOVAGINITIS UNSPECIFIED 02/17/2013 MAURER DO, KIA K 616.10 VAGINITIS AND VULVOVAGINITIS UNSPECIFIED 02/17/2013 YOEL CATALAN MD 616 .10 VAGINITIS AND VULVOVAGINITIS UNSPECIFIED 02/17/2013 MEDINA LEAD WAREHOUSE ASSOCIATE, FAHAD A 616.10 VAGINITIS AND VULVOVAGINITIS UNSPECIFIED 03/15/2013 625.9 PELV IC PAIN 03/15/2013 ERASTO DUNCAN, KIA K 625.9 PELVIC PAIN 03/15/2013 MAURER DO, KIA K 625.9 PELVIC PAIN 03/15/2013 MEDINA LEAD WAREHOUSE ASSOCIATE, FAHAD A 62 5.9 PELVIC PAIN 03/15/2013 MEDINA LEAD WAREHOUSE ASSOCIATE, FAHAD A 62 5.9 PELVIC PAIN 03/15/2013 MEDINA LEAD WAREHOUSE ASSOCIATE, FAHAD A 62 5.9 PELVIC PAIN 03/15/2013 MAURER DO, KIA K 625.9 PELVIC PAIN 03/15/2013 MAURER DO, KIA K 625.9 PELVIC PAIN 03/15/2013 MAURER DO, KIA K 625.9 PELVIC PAIN 03/15/2013 MAURER DO, KIA K 625.9 PELVIC PAIN 03/15/2013 MAURER DO, KIA K 625.9 PELVIC PAIN 03/15/2013 MAURER DO, KIA K 625.9 PELVIC PAIN 03/15/2013 MAURER DO, KIA K 625.9 PELVIC PAIN 03/15/2013 MAURER DO, KIA K 625.9 PELVIC PAIN 03/15/2013 MAURER DO, KAI K 625.9 PELVIC PAIN 03/15/2013 MAURER DO, KIA K 625.9 PELVIC PAIN 03/15/2013 HOSSEIN SEARS, YOEL Love 625 .9 PELVIC PAIN 03/15/2013 MEDINA LEAD WAREHOUSE ASSOCIATE, FAHAD A 62 5.9 PELVIC PAIN 04/13/2013 MAURER DO, KIA K 681.00 UNSPECIFIED CELLULITIS AND ABSCESS OF FINGER 04/13/2013 MAURER DO, KIA K 681.00 UNSPECIFIED CELLULITIS AND ABSCESS OF FINGER 04/13/2013 MEDINA LEAD WAREHOUSE ASSOCIATE, FAHAD A 681.00 UNSPECIFIED CELLULITIS AND ABSCESS OF FINGER 04/13/2013 MEDINA LEAD WAREHOUSE ASSOCIATE, FAHAD A 681.00 UNSPECIFIED CELLULITIS AND ABSCESS OF FINGER 04/13/2013 MEDINA LEAD WAREHOUSE ASSOCIATE, FAHAD A 681.00 UNSPECIFIED CELLULITIS AND ABSCESS OF FINGER 04/13/2013 MAURER DO, KIA K 681.00 UNSPECIFIED CELLULITIS AND ABSCESS OF FINGER 04/13/2013 MAURER DO, KIA K 681.00 UNSPECIFIED CELLULITIS AND ABSCESS OF FINGER 04/13/2013 MAURER DO, KIA K 681.00 UNSPECIFIED CELLULITIS AND ABSCESS OF FINGER 04/13/2013 MAURER DO, KIA K 681.00 UNSPECIFIED CELLULITIS AND ABSCESS OF FINGER 04/13/2013 MAURER DO, KIA K 681.00 UNSPECIFIED CELLULITIS AND ABSCESS OF FINGER 04/13/2013 MAURER DO, KIA K 681.00 UNSPECIFIED CELLULITIS AND ABSCESS OF FINGER 04/13/2013 MAURER DO, KIA K 681.00 UNSPECIFIED CELLULITIS AND ABSCESS OF FINGER 04/13/2013 MAURER DO, KIA K 681.00 UNSPECIFIED CELLULITIS AND ABSCESS OF FINGER 04/13/2013 MAURER DO, KIA K 681.00 UNSPECIFIED CELLULITIS AND ABSCESS OF FINGER 04/13/2013 MAURER DO, KIA K 681.00 UNSPECIFIED CELLULITIS AND ABSCESS OF FINGER 04/13/2013 HOSSEIN SEARS, YOEL Love 681 .00 UNSPECIFIED CELLULITIS AND ABSCESS OF FINGER 04/13/2013 MEDINA TORRES, FAHAD A 681.00 UNSPECIFIED CELLULITIS AND ABSCESS OF FINGER 11/28/2013 MAURER DO, KIA K V72.42 TEST POSITIVE RESULT 11/28/2013 MEDINA TORRES FAHAD A V72.42 TEST POSITIVE RESULT 11/28/2013 MEDINA TORRES FAHAD A V72.42 TEST POSITIVE RESULT 11/28/2013 MEDINA TORRES FAHAD A V72.42 TEST POSITIVE RESULT 11/28/2013 MAURER DO, KIA K V72.42 TEST POSITIVE RESULT 11/28/2013 MAURER DO, KIA K V72.42 TEST POSITIVE RESULT 11/28/2013 MAURER DO, KIA K V72.42 TEST POSITIVE RESULT 11/28/2013 MAURER DO, KIA K V72.42 TEST POSITIVE RESULT 11/28/2013 MAURER DO, KIA K V72.42 TEST POSITIVE RESULT 11/28/2013 MAURER DO, KIA K V72.42 TEST POSITIVE RESULT 11/28/2013 MAURER DO, KIA K V72.42 TEST POSITIVE RESULT 11/28/2013 MAURER DO, KIA K V72.42 TEST POSITIVE RESULT 11/28/2013 MAURER DO, KIA K V72.42 TEST POSITIVE RESULT 11/28/2013 MAURER DO, KIA K V72.42 TEST POSITIVE RESULT 11/28/2013 YOEL CATALAN MD V72 .42 TEST POSITIVE RESULT 11/28/2013 JACOB HANEY APRNIDI A V72.42 TEST POSITIVE RESULT 12/19/2013 JACOB HANEY APRNIDI A V2 2.1 , NORMAL OTHER 12/19/2013 JACOB HANEY APRNIDI A V2 2.1 , NORMAL OTHER 12/19/2013 JACOB HANEY APRNIDI A V2 2.1 , NORMAL OTHER 12/19/2013 MAURER DO, KIA K V22.1 , NORMAL OTHER 12/19/2013 MAURER DO, KIA K V22.1 , NORMAL OTHER 12/19/2013 MAURER DO, KIA K V22.1 , NORMAL OTHER 12/19/2013 MAURER DO, KIA K V22.1 , NORMAL OTHER 12/19/2013 MAURER DO, KIA K V22.1 , NORMAL OTHER 12/19/2013 MAURER DO, KIA K V22.1 , NORMAL OTHER 12/19/2013 MAURER DO, KIA K V22.1 , NORMAL OTHER 12/19/2013 MAURER DO, KIA K V22.1 , NORMAL OTHER 12/19/2013 MAURER DO, KIA K V22.1 , NORMAL OTHER 12/19/2013 MAURER DO, KIA K V22.1 , NORMAL OTHER 12/19/2013 HOSSEIN SEARS, YOEL N V22 .1 , NORMAL OTHER 12/19/2013 JACOB HANEY APRNIDI A V2 2.1 , NORMAL OTHER 01/16/2014 MEDINA TORRES FAHAD A 646.50 COMPL OF - ASYMPTOMATIC BACTURIA 01/16/2014 MEDINA BEARDENKate FAHAD A V7 4.5 STD SCREEN 01/16/2014 MEDINA BEARDENKate FAHAD A V7 6.2 CERVICAL CANCER SCREENING (PAP SMEAR) 01/16/2014 MEDINA BEARDENKate FAHAD A 646.50 COMPL OF - ASYMPTOMATIC BACTURIA 01/16/2014 MEDINA LEAD WAREHOUSE ASSOCIATE, FAHAD A V7 4.5 STD SCREEN 01/16/2014 MEDINA LEAD WAREHOUSE ASSOCIATEFAHAD Love A V7 6.2 CERVICAL CANCER SCREENING (PAP SMEAR) 01/16/2014 YON MAURER DOA K 646.50 COMPL OF - ASYMPTOMATIC BACTURIA 01/16/2014 MAURER DO, KIA K V74.5 STD SCREEN 01/16/2014 MAURER DO KIA K V76.2 CERVICAL CANCER SCREENING (PAP SMEAR) 01/16/2014 KIA MAURER DO K 646.50 COMPL OF - ASYMPTOMATIC BACTURIA 01/16/2014 MAURER DO KIA K V74.5 STD SCREEN 01/16/2014 MAURER DO KIA K V76.2 CERVICAL CANCER SCREENING (PAP SMEAR) 01/16/2014 YON MAURER DOA K 646.50 COMPL OF - ASYMPTOMATIC BACTURIA 01/16/2014 MAURER DO KIA K V74.5 STD SCREEN 01/16/2014 ERASTO DUNCAN KIA K V76.2 CERVICAL CANCER SCREENING (PAP SMEAR) 01/16/2014 YON MAURER DOA K 646.50 COMPL OF - ASYMPTOMATIC BACTURIA 01/16/2014 MAURER DO KIA K V74.5 STD SCREEN 01/16/2014 MAURER DO KIA K V76.2 CERVICAL CANCER SCREENING (PAP SMEAR) 01/16/2014 YON MAURER DOA K 646.50 COMPL OF - ASYMPTOMATIC BACTURIA 01/16/2014 MAURER DO KIA K V74.5 STD SCREEN 01/16/2014 YON MAURER DOA K V76.2 CERVICAL CANCER SCREENING (PAP SMEAR) 01/16/2014 YON MAURER DOA K 646.50 COMPL OF - ASYMPTOMATIC BACTURIA 01/16/2014 MAURER DO KIA K V74.5 STD SCREEN 01/16/2014 YON MAURER DOA K V76.2 CERVICAL CANCER SCREENING (PAP SMEAR) 01/16/2014 YON MAURER DOA K 646.50 COMPL OF - ASYMPTOMATIC BACTURIA 01/16/2014 YON MAURER DOA K V74.5 STD SCREEN 01/16/2014 YON MAURER DOA K V76.2 CERVICAL CANCER SCREENING (PAP SMEAR) 01/16/2014 KIA MAURER DO K 646.50 COMPL OF - ASYMPTOMATIC BACTURIA 01/16/2014 MAURER DO KIA K V74.5 STD SCREEN 01/16/2014 MAURER DO KIA K V76.2 CERVICAL CANCER SCREENING (PAP SMEAR) 01/16/2014 YON MAURER DOA K 646.50 COMPL OF - ASYMPTOMATIC BACTURIA 01/16/2014 MAURER DO KIA K V74.5 STD SCREEN 01/16/2014 YON MAURER DOA K V76.2 CERVICAL CANCER SCREENING (PAP SMEAR) 01/16/2014 MAURER DO, KIA K 646.50 COMPL OF - ASYMPTOMATIC BACTURIA 01/16/2014 MAURER DO, KIA K V74.5 STD SCREEN 01/16/2014 MAURER DO, KIA K V76.2 CERVICAL CANCER SCREENING (PAP SMEAR) 01/16/2014 YOEL CATALAN MD 646 .50 COMPL OF - ASYMPTOMATIC BACTURIA 01/16/2014 YOEL CATALAN MD V74 .5 STD SCREEN 01/16/2014 YOEL CATALAN MD V76 .2 CERVICAL CANCER SCREENING (PAP SMEAR) 01/16/2014 MEDINAKAYLEIGH TORRES FAHAD A 646.50 COMPL OF - ASYMPTOMATIC BACTURIA 01/16/2014 JACOB HANEY APRNIDI A V7 4.5 STD SCREEN 01/16/2014 JACOB HANEY APRNIDI A V7 6.2 CERVICAL CANCER SCREENING (PAP SMEAR) 01/22/2014 JACOB HANEY APRNIDI A 59 9.0 URINARY TRACT INFECTION 01/22/2014 JACOB HANEY APRNIDI A 59 9.0 URINARY TRACT INFECTION 01/22/2014 MAURER DO, KIA K 599.0 URINARY TRACT INFECTION 01/22/2014 MAURER DO, KIA K 599.0 URINARY TRACT INFECTION 01/22/2014 MAURER DO, KIA K 599.0 URINARY TRACT INFECTION 01/22/2014 MAURER DO, KIA K 599.0 URINARY TRACT INFECTION 01/22/2014 MAURER DO, KIA K 599.0 URINARY TRACT INFECTION 01/22/2014 MAURER DO, KIA K 599.0 URINARY TRACT INFECTION 01/22/2014 MAURER DO, KIA K 599.0 URINARY TRACT INFECTION 01/22/2014 MAURER DO, KIA K 599.0 URINARY TRACT INFECTION 01/22/2014 MAURER DO, KIA K 599.0 URINARY TRACT INFECTION 01/22/2014 MAURER DO, KIA K 599.0 URINARY TRACT INFECTION 01/22/2014 YOEL CATALAN MD 599 .0 URINARY TRACT INFECTION 01/22/2014 JACOB HANEY APRNIDI A 59 9.0 URINARY TRACT INFECTION 03/15/2014 MAURER DO, KIA K Ot 599.0 URIN TRACT INFECTION NOS 03/15/2014 MAURER DO, KIA K Ot 646.63 INFECTION-ANTEPARTUM 05/09/2014 MAURER DO, KIA K V04.81 FLU SHOT 05/09/2014 MAURER DO, KIA K V77.1 DIABETES SCREENING 05/09/2014 MAURER DO, KIA K V78.0 ANEMIA SCREENING 05/09/2014 MAURER DO, KIA K V04.81 FLU SHOT 05/09/2014 MAURER DO, KIA K V77.1 DIABETES SCREENING 05/09/2014 MAURER DO, KIA K V78.0 ANEMIA SCREENING 05/09/2014 MAURER DO, KIA K V04.81 FLU SHOT 05/09/2014 MAURER DO, KIA K V77.1 DIABETES SCREENING 05/09/2014 MAURER DO, KIA K V78.0 ANEMIA SCREENING 05/09/2014 MAURER DO, KIA K V04.81 FLU SHOT 05/09/2014 MAURER DO, KIA K V77.1 DIABETES SCREENING 05/09/2014 MAURER DO, KIA K V78.0 ANEMIA SCREENING 05/09/2014 MAURER DO, KIA K V04.81 FLU SHOT 05/09/2014 MAURER DO, KIA K V77.1 DIABETES SCREENING 05/09/2014 MAURER DO, KIA K V78.0 ANEMIA SCREENING 05/09/2014 MAURER DO, KIA K V04.81 FLU SHOT 05/09/2014 MAURER DO, KIA K V77.1 DIABETES SCREENING 05/09/2014 MAURER DO, KIA K V78.0 ANEMIA SCREENING 05/09/2014 MAURER DO, KIA K V04.81 FLU SHOT 05/09/2014 MAURER DO, KIA K V77.1 DIABETES SCREENING 05/09/2014 MAURER DO, KIA K V78.0 ANEMIA SCREENING 05/09/2014 YOEL CATALAN MD V04 .81 FLU SHOT 05/09/2014 YOEL CATALAN MD V77 .1 DIABETES SCREENING 05/09/2014 YOEL CATALAN MD V78 .0 ANEMIA SCREENING 05/09/2014 MEDINAJACOB Love APRNIDI A V04.81 FLU SHOT 05/09/2014 MEDINA APRN, FAHAD A V7 7.1 DIABETES SCREENING 05/09/2014 MEDINA APRN, FAHAD A V7 8.0 ANEMIA SCREENING 05/23/2014 MAURER DO, KIA K V06.1 TDAP DX 05/23/2014 MAURER DO, KIA K V77.1 DIABETES SCREENING 05/23/2014 MAURER DO, KIA K V78.0 ANEMIA SCREENING 05/23/2014 MAURER DO, KIA K V06.1 TDAP DX 05/23/2014 MAURER DO, KIA K V77.1 DIABETES SCREENING 05/23/2014 MAURER DO, KIA K V78.0 ANEMIA SCREENING 05/23/2014 MAURER DO, KIA K V06.1 TDAP DX 05/23/2014 MAURER DO, KIA K V77.1 DIABETES SCREENING 05/23/2014 MAURER DO, KIA K V78.0 ANEMIA SCREENING 05/23/2014 MAURER DO, KIA K V06.1 TDAP DX 05/23/2014 MAURER DO, KIA K V77.1 DIABETES SCREENING 05/23/2014 MAURER DO, KIA K V78.0 ANEMIA SCREENING 05/23/2014 MAURER DO, KIA K V06.1 TDAP DX 05/23/2014 MAURER DO, KIA K V77.1 DIABETES SCREENING 05/23/2014 MAURER DO, KIA K V78.0 ANEMIA SCREENING 05/23/2014 MAURER DO, KIA K V06.1 TDAP DX 05/23/2014 MAURER DO, KIA K V77.1 DIABETES SCREENING 05/23/2014 MAURER DO, KIA K V78.0 ANEMIA SCREENING 05/23/2014 YOEL CATALAN MD V06 .1 TDAP DX 05/23/2014 YOEL CATALAN MD V77 .1 DIABETES SCREENING 05/23/2014 YOEL CATALAN MD V78 .0 ANEMIA SCREENING 05/23/2014 JACOB HANEY APRNIDI A V0 6.1 TDAP DX 05/23/2014 MEDINA TORRES FAHAD A V7 7.1 DIABETES SCREENING 05/23/2014 JACOB HANEY APRNIDI A V7 8.0 ANEMIA SCREENING 06/06/2014 MAURER DO, KIA K 648.20 COMPL OF - ANEMIA 06/06/2014 MAURER DO, KIA K 648.20 COMPL OF - ANEMIA 06/06/2014 MAURER DO, KIA K 648.20 COMPL OF - ANEMIA 06/06/2014 MAURER DO, KIA K 648.20 COMPL OF - ANEMIA 06/06/2014 MAURER DO, KIA K 648.20 COMPL OF - ANEMIA 06/06/2014 YOEL CATALAN MD 648 .20 COMPL OF - ANEMIA 06/06/2014 FAHAD HANEY APRN 648.20 COMPL OF - ANEMIA 06/18/2014 KIA MAURER DO 525.9 UNSPECIFIED DISORDER OF THE TEETH AND SUPPORTING STRUCTURES 06/18/2014 KIA MAURER DO 525.9 UNSPECIFIED DISORDER OF THE TEETH AND SUPPORTING STRUCTURES 06/18/2014 KIA MAURER DO 525.9 UNSPECIFIED DISORDER OF THE TEETH AND SUPPORTING STRUCTURES 06/18/2014 KIA MAURER DO 525.9 UNSPECIFIED DISORDER OF THE TEETH AND SUPPORTING STRUCTURES 06/18/2014 YOEL CATALAN MD 525 .9 UNSPECIFIED DISORDER OF THE TEETH AND SUPPORTING STRUCTURES 06/18/2014 FAHAD HANEY APRN 52 5.9 UNSPECIFIED DISORDER OF THE TEETH AND SUPPORTING STRUCTURES 06/20/2014 JAVY MCCLURE MD Ot 465.9 ACUTE URI NOS 06/20/2014 JAVY MCCLURE MD Ot 648.93 OTH CURR COND-ANTEPARTUM 06/20/2014 JAVY MCCLURE MD Ot 786.05 SHORTNESS OF BREATH 07/02/2014 KIA MAURER DO V28.6 GBS SCREENING 07/02/2014 KIA MAURER DO V28.6 GBS SCREENING 07/02/2014 KIA MAURER DO V28.6 GBS SCREENING 07/02/2014 KIA MAURER DO V28.6 GBS SCREENING 07/02/2014 YOEL CATALAN MD V28 .6 GBS SCREENING 07/02/2014 FAHAD HANEY APRN V2 8.6 GBS SCREENING 07/26/2014 YOEL CATALAN MD Ot 054.10 GENITAL HERPES NOS 07/26/2014 YOEL CATALAN MD Ot 285 .9 ANEMIA NOS 07/26/2014 YOEL CATALAN MD Ot 647.61 OTH VIRAL DIS-DELIVERED 07/26/2014 YOEL CATALAN MD Ot 648.21 ANEMIA-DELIVERED 07/26/2014 YOEL CATALAN MD Ot 659.71 ABN DEL FET HT RT/RHYTHM,W OR W/O MENTIO 07/26/2014 YOEL CATALAN MD Ot 663.11 CORD AROUND NECK-DELIVER 07/26/2014 YOEL CATALAN MD Ot V07 .2 PROPHYLACT IMMUNOTHERAPY 07/26/2014 YOEL CATALAN MD Ot V27 .0 DELIVER-SINGLE LIVEBORN 08/28/2014 MEDINA TORRES, FAHAD A V2 4.2 F/U, ROUTINE 08/28/2014 MEDINAKAYLEIGH TORRES FAHAD A V2 5.9 CONTRACEPTION MANAGEMENT 09/12/2014 Ot V22.0 09/12/2014 Ot V28.9 09/12/2014 Ot V28.81 09/12/2014 KIA MAURER DO Ot V28.81 09/12/2014 Ot 786.52 OZZIE NFUL RESPIRATION 09/12/2014 Ot E000.8 OTH ER EXTERNAL CAUSE STATUS 09/12/2014 Ot E819.9 TRA FFIC ACC NOS- PERS NOS 09/18/2014 Ot 786.52 09/18/2014 Ot E000.8 09/18/2014 Ot E819.9 06/13/2016 Jamison Wayne 840.8 SPRAIN OF OTHER SPECIFIED SITES OF SHOULDER AND UPPER ARM 06/13/2016 Jamison Wayne S46.212A STRAIN OF MUSCLE, FASCIA AND TENDON OF OTHER PARTS OF BICEPS, LEFT ARM, INITIAL ENCOUNTER 07/02/2019 KIA MAURER DO, Ot V28.81 ENCOUNTER FOR ANATOMIC SURVEY 07/02/2019 JOSE HOUSER Ot J06.9 ACUTE UPPER RESPIRATORY INFECTION, UNSPE 07/02/2019 JOSE HOUSER Ot R 05 COUGH 07/02/2019 JOSE HOUSER Ot Z88.5 ALLERGY STATUS TO NARCOTIC AGENT STATUS 07/08/2019 KIA MAURER DO, Ot V28.81 ENCOUNTER FOR ANATOMIC SURVEY Procedures Code Description [place] [address] HERP ES SIMPLEX CULTURE 09/06/2012 53161 ROUT INE VENIPUNCTURE 09/16/2012 HERPSM1,2 HERPES SIMPLEX 1 AND 2, IGM, IGG 09/16/2012 65102 UA W / CULTURE IF INDICATED 03/15/2013 45537 PREG RENAE TEST, URINE (IN- HOUSE) 11/28/2013 73078 ROUT INE VENIPUNCTURE 12/19/2013 52764 US O B - EARLY <14 WEEKS 12/19/2013 91700 [facility]PH [facility] 12/19/2013 55700 HIV ([facility]) 12/19/2013 40550 ANTI BODY SCREEN (order) 12/19/2013 96958 HEP B SURFACE ANTIGEN ([facility]) 12/19/2013 55222 UA OB DIP 12/19/2013 99269 CBC 12/19/2013 59441 TSH 12/19/2013 [id number] AN TIBODY SCREEN (RESULT ONLY) 12/20/2013 01237 BLOO D TYPE/Rh FACTOR 12/20/2013 17344 RUBE LLA ANTIBODY, IGG 12/20/2013 27375 CULT URE URINE 12/20/2013 36289 GC/C HLAM PROBE ([facility]) 01/16/2014 59867 PAP SMEAR 01/16/2014 Q0091 PAP SMEAR OBTAIN SMEAR 01/16/2014 33909 UA OB DIP 01/16/2014 77520 TRIC HOMONAS (IN-HOUSE) 01/16/2014 98343 CULT URE URINE 01/17/2014 92807 CULT URE UROGENITAL 01/17/2014 J0696 ROCE PHIN INJ 1 g 01/22/2014 67160 THER APUTIC INJ SQ/IM 01/22/2014 10874 UA OB DIP 02/12/2014 95140 CULT URE URINE 02/13/2014 22098 US O B - COMPLETE >14 WEEKS 03/12/2014 42439 UA OB DIP 03/12/2014 22489 UA OB DIP 04/11/2014 46161 UA OB DIP 05/09/2014 J2790 RHOG HAM 300 MCG 05/09/2014 37834 ROUT INE VENIPUNCTURE 05/23/2014 39332 UA OB DIP 05/23/2014 95065 GLUC OSE CRISTÓBAL 1 HOUR 05/23/2014 09926 CBC 05/23/2014 65234 UA OB DIP 06/06/2014 08720 CULT URE GROUP B STREP VAG 07/02/2014 66743 HEMO GLOBIN (IN-HOUSE) 07/02/2014 54272 UA OB DIP 07/02/2014 47515 UA OB DIP 07/09/2014 80284 UA OB DIP 07/16/2014 72193 UA OB DIP 07/24/2014 73.59 MANU AL ASSIST DELIV NEC 07/25/2014 68426 THER APUTIC INJ SQ/IM 08/28/2014 J1050 DEPO PROVERA 08/28/2014 46678 PREG RENAE TEST, URINE (IN- HOUSE) 08/28/2014 Results Test Result Range Genital Culture, Routine - 09/02/16 16:1 7 Genital Culture, Routine Note TSH - 01/17/18 14:59 TSH 2.66 mIU/L NRG Encounters ACCT No. Visit Date/Time Discharge Status Pt. Type Provider Facility Loc./Unit Complaint [id number] 08/28/2014 10:20:00 08/28/2014 23:59: 59 CLS Outpatient FAHAD HANEY APRN [id number] 07/24/2014 14:54:00 07/24/2014 23:59: 59 CLS Outpatient YOEL CATALAN MD [id number] 07/09/2014 14:10:00 07/09/2014 23:59: 59 CLS Outpatient MAURER DOKIA [id number] 07/02/2014 14:12:00 07/02/2014 23:59: 59 CLS Outpatient MAURER DOKIA [id number] 07/02/2014 14:12:00 07/02/2014 23:59: 59 CLS Outpatient MAURER DOKIA [id number] 06/18/2014 10:19:00 06/18/2014 23:59: 59 CLS Outpatient MAURER DOKIA [id number] 06/06/2014 09:37:00 06/06/2014 23:59: 59 CLS Outpatient MAURER DOKIA [id number] 05/23/2014 09:45:00 05/23/2014 23:59: 59 CLS Outpatient MAURER DOKIA [id number] 05/23/2014 09:45:00 05/23/2014 23:59: 59 CLS Outpatient MAURER DOKIA [id number] 05/09/2014 10:02:00 05/09/2014 23:59: 59 CLS Outpatient MAURER DOKIA [id number] 04/11/2014 09:51:00 04/11/2014 23:59: 59 CLS Outpatient MAURER DOKIA [id number] 03/12/2014 14:33:00 03/12/2014 23:59: 59 CLS Outpatient MAURER DOKIA [id number] 02/12/2014 14:03:00 02/12/2014 23:59: 59 CLS Outpatient MAURER DOKIA [id number] 01/22/2014 13:59:00 01/22/2014 23:59: 59 CLS Outpatient FAHAD HANEY APRN [id number] 01/16/2014 09:38:00 01/16/2014 23:59: 59 CLS Outpatient FAHAD HANEY APRN [id number] 12/19/2013 09:51:00 12/19/2013 23:59: 59 CLS Outpatient FAHAD HANEY APRN [id number] 11/28/2013 09:07:00 11/28/2013 23:59: 59 CLS Outpatient KIA MAURER DO [id number] 04/13/2013 08:55:00 04/13/2013 23:59: 59 CLS Outpatient KIA MAURER DO [id number] 09/16/2012 11:14:00 09/16/2012 23:59: 59 CLS Outpatient KIA MAURER DO [id number] 09/09/2012 11:01:00 09/09/2012 23:59: 59 CLS Outpatient [id number] 09/06/2012 17:52:00 09/06/2012 23:59: 59 CLS Outpatient [id number] 03/15/2013 16:45:00 Document Registration [id number] 01/03/2013 17:57:00 Document Registration [id number] 07/02/2019 13:50:00 019 16:21:00 DIS Emergency JOSE HOUSER [facility] ER COUGH,CHEST TIGHT [id number] 07/25/2014 01:52:00 015 16:45:00 DIS Inpatient YOEL CATALAN MD [facility] LDRP LABOR [id number] 06/20/2014 05:40:00 014 06:24:00 DIS Emergency JAVY MCCLURE MD [facility] ER SOB,34 WKS PREG [id number] 03/19/2014 09:56:00 014 23:59:59 CLS Outpatient KIA MAURER DO [facility] RAD SURVEY [id number] 03/15/2014 18:56:00 014 20:25:00 DIS Outpatient KIA MAURER DO [facility] WSo SHARP L ABD SIDE PAIN [id number] 12/22/2013 12:43:00 014 23:59:59 CLS Outpatient [id number] 09/12/2014 12:32:00 Document Registration [id number] 07/08/2011 06:36:00 Document Registration [id number] 04/27/2011 18:14:00 Document Registration [id number] 03/09/2011 11:06:00 Document Registration [id number] 12/26/2010 12:31:00 Document Registration [id number] 09/13/2018 12:45:00 09/13/2018 23:59:5 9 CLS Outpatient DANYEL MARRERO [facility] [id number] 01/17/2018 14:40:00 Document Registration [id number] 06/13/2016 08:53:00 06/13/2016 09:27: 00 DIS Outpatient Jamison Wayne [facility] enter ER [email or web address] 07/25/2014 01:30:49 ACT Document Registration [email or web address] 06/20/2014 05:41:08 ACT Document Registration [id number] 09/05/2016 11:06:00 Document Registration
--- OUTSIDE RECORDS SUMMARY | 2019-07-27 20:26 | XMS REPORT ---
Author Author Ya BACA Organization [facility] Address [address] [place] [address] Care Team Providers Care Molder Inflated Ball Name Role Phone MARCOS BACA Unavailable PROBLEMS Type Condition ICD9-CM Code [id number] Code Onset Dates Condition S tatus SNOMED Code Problem Encounter for initial prescription of contraceptive pills Z30.011 Active 69223136 Problem Routine gynecological examination Z01.419 Active 287379467 Problem Encounter for counseling regarding contraception Z 30.9 Active 48609606 ALLERGIES Substance Reaction Event Type Date Status Codeine Phosphate Hives Drug Allergy Aug, Active SOCIAL HISTORY Never Assessed PLAN OF CARE Activity Details Follow Up prn with Zach Reason: VITAL SIGNS Height 64 in 2016-09-02 Weight 169.2 lbs 2016-09-02 Temperature 97.9 degrees Fahrenheit 2016-09-02 Heart Rate 76 bpm 2016-09-02 Respiratory Rate 18 2016-09-02 BMI 29.04 kg/m2 2016-09-02 Blood pressure systolic 108 mmHg 2016-09-02 Blood pressure diastolic 68 mmHg 2016-09-02 MEDICATIONS Medication Instructions Dosage Frequency Start Date End Date Duration S tatus Ortho Tri-Cyclen (28) 0.18/0.215/0.25 MG-35 MCG Orally Once a day 1 tablet 24h Dec, 28 day(s) Active Ferrous Sulfate 325 mg (65 mg iron) 1 tablet by Oral r oute 2 times per day May, Active Multi Adult Gummies - Ac tive RESULTS Name Result Date Reference Range TEST, URINE (IN HOUSE) 2016-09-02 RESULTS Negative Lot # [id number] Control + Exp date TRICHOMONAS (IN HOUSE) 2016-09-02 TRICHOMONAS Negative Control + Lot # [id number] Exp date 08/2017 BACTERIAL VAGINOSIS (IN HOUSE) 2016-09-02 RESULTS Negative Control + Lot # [id number] Exp date 03/2017 CULTURE, GENITAL 2016-09-02 Genital Culture, Routine Final report Result 1 GC/CHLAM PROBE (STATE) 2016-09-02 CHLAMYDIA GC PROCEDURES Procedure Date Ordered Result Body Site URINE TEST Sep 02, 2016 CULTURE, BACTERIA, OTHER Sep 02, 2016 TRICHOMONAS ASSAY W/OPTIC Sep 02, 2016 LESLIE VAG, DNA, DIR PROBE Sep 02, 2016 No Charge Sep 02, 2016 IMMUNIZATIONS No Known Immunizations MEDICAL (GENERAL) HISTORY Type Description Date Medical History herpes Hospitalization History Childbirth only
--- OUTSIDE RECORDS SUMMARY | 2019-07-27 20:26 | XMS REPORT ---
Author Author Ya PALACIO Organization [employer] Address Unknown Phone Unavailable Care Team Providers Care Hammer Operator Name Role Phone ALAN PALACIO CP Unavailable Allergies No Known Allergies Problems Problem Type Condition Code Onset Dates Condition Statu s Problem Encounter for counseling regarding contraception Z30.9 Active Problem Encounter for initial prescription of contraceptive pi lls Z30.011 Active Problem Routine gynecological examination Z01.419 Active Medications No Known Medications Results No Known Results Summary Purpose [employer] Submission
--- OUTSIDE RECORDS SUMMARY | 2019-07-27 20:26 | XMS REPORT ---
Author Author Ya Romano Organization [facility] Address [address] [place] [address] Care Team Providers Care Wash House Supervisor Name Role Phone SMITA Romano Unavailable PROBLEMS Type Condition ICD9-CM Code JDS60-HI Code Onset Dates Condition S tatus SNOMED Code Problem Encounter for initial prescription of contraceptive pills Z30.011 Active 72437848 Problem Routine gynecological examination Z01.419 Active 167244685 Problem Encounter for counseling regarding contraception Z 30.9 Active 00029616 ALLERGIES Substance Reaction Event Type Date Status Codeine Phosphate Hives Drug Allergy Mar, Active ENCOUNTERS Encounter Location Date Diagnosis [facility] [id number] [place] [id number] 07 Mar, 2017 Knee strain, right, initial encounter S86.911A [place] [address] [place] [id number] [address] [place] [address] 14 Aug, 2016 Pelvic pain R10.2 [place] [address] [place] [id number] [address] [place] [id number] 08 Aug, 2016 Dyspareunia in female N94.10 and control counseling Z30.09 [facility] [address] [place] [id number] [address] [place] [id number] 13 Jun, 2016 Gastroenteritis K52.9 and Ac [place] effusion of both middle ears H65.193 [place] [address] [place] [id number] [address] [place] [address] 18 Apr, 2016 Swelling of pharynx J39.2 [place] [address] [place] [id number] [address] [place] [phone] Jan, [place] [address] [place] [id number] [address] [place] [address] Jan, [facility] [address] [id number] [address] [place] [address] Dec, 2016 Routine gynecological examin ation Z01.419 ; Encounter for counseling regarding contraception Z30.9 and Encounter for initial prescription of contraceptive pills Z30.011 [facility] [address] [id number] [address] [place] [address] November, Contraceptive management V25 .9 [facility] [address] [id number] [address] [place] [phone] Oct, [facility] [address] [id number] [address] [place] [address] Oct, [facility] [address] [id number] [address] [place] [id number] Aug, [facility] [address] [id number] [address] [place] [address] Aug, [facility] [address] [id number] [address] [place] [address] Jun, [facility] [address] [id number] [address] [place] [address] Jun, [facility] [address] [id number] [address] [place] [phone] Jun, [facility] [address] [id number] [address] [place] [address] Jun, [facility] [address] [id number] [address] [place] [phone] Jun, [facility] [address] [id number] [address] [place] [address] Jun, [facility] [address] [id number] [address] [place] [address] Jun, [facility] [address] [id number] [address] [place] [address] Jun, [facility] [address] [id number] [address] [place] [address], [place] [address] Jun, [facility] [address] [id number] [address] [place] [address], [place] [address] Jun, [facility] [address] [id number] [address] [place] [address], [place] [address] Jun, [facility] [address] [id number] [address] [place] [address], [place] [address] May, [facility] [address] [id number] [address] [place] [address], [place] [address] May, [facility] [address] [id number] [address] [place] [address], [place] [address] May, [facility] [address] [id number] [address] [place] [address], [place] [address] May, [facility] [address] [id number] [address] [place] [address] Apr, [facility] [address] [id number] [address] [place] [address], [place] [address] Apr, [facility] [address] [id number] [address] [place] [phone] Apr, [facility] [address] [id number] [address] [place] [phone] Apr, [facility] [address] [id number] [address] [place] [address] Apr, [facility] [address] [id number] [address] [place] [address], [place] [address] Apr, [facility] [address] [id number] [address] [place] [address] Apr, [facility] [address] [id number] [address] [place] [id number] Apr, [facility] [address] [id number] [address] [place] [address] Mar, [facility] [address] [id number] [address] [place] [address], [place] [address] Mar, [facility] [address] [id number] [address] [place] [address], [place] [address] Feb, [facility] [address] [id number] [address] [place] [address], [place] [address] Feb, [facility] [address] [id number] [address] [place] [address], [place] [address] Jan, [facility] [address] [id number] [address] [place] [address], [place] [address] Jan, [facility] [address] [id number] [address] [place] [address], [place] [address] Jan, [facility] [address] [id number] [address] [place] [address], [place] [address] Jan, [facility] [address] [id number] [address] [place] [address], [place] [address] Jan, [facility] [address] [id number] [address] [place] [address], [place] [address] Dec, [facility] [address] [id number] [address] [place] [address], [place] [address] Dec, [facility] [address] [id number] [address] [place] [address], [place] [address] Dec, [facility] [address] [id number] [address] [place] [address], [place] [address] Dec, [facility] [address] [id number] [address] [place] [address], [place] [address] Dec, [facility] [address] [id number] [address] [place] [address], [place] [address] Dec, [facility] [address] [id number] [address] [place] [address], [place] [address] Dec, [facility] [address] [id number] [address] [place] [address], [place] [address] Dec, [facility] [address] [id number] [address] [place] [address], [place] [address] Dec, [facility] [address] [id number] [address] [place] [address], [place] [address] November, [facility] [address] [id number] [address] [place] [address], [place] [address] November, [facility] [address] [id number] [address] [place] [address], [place] [address] November, [facility] [address] [id number] [address] [place] [address], [place] [address] November, [facility] [address] [id number] [address] [place] [address], [place] [address] November, [facility] [address] [id number] [address] [place] [address], [place] [address] November, [facility] [address] [id number] [address] [place] [address], [place] [address] November, [facility] [address] [id number] [address] [place] [address], [place] [address] November, [facility] [address] [id number] [address] [place] [address], [place] [address] November, [facility] [address] [id number] [address] [place] [address], [place] [address] November, [facility] [address] [id number] [address] [place] [address], [place] [address] Aug, [facility] [address] [id number] [address] [place] [address], [place] [address] Aug, [facility] [address] [id number] [address] [place] [address], [place] [address] Mar, [facility] [address] [id number] [address] [place] [address], [place] [address] Feb, [facility] [address] [id number] [address] [place] [address], [place] [address] Jan, [facility] [address] [id number] [address] [place] [address], [place] [address] Jan, [facility] [address] [id number] [address] [place] [address], [place] [address] Jan, [facility] [address] [id number] [address] [place] [address], [place] [address] Jan, [facility] [address] [id number] [address] [place] [address], [place] [address] Dec, [facility] [address] [id number] [address] [place] [address], [place] [address] Oct, [facility] [address] [id number] [address] [place] [address], [place] [address] 28 Aug, 2012 [facility] [address] [id number] [address] [place] [address], [place] [address] 27 Aug, 2012 [facility] [address] [id number] [address] [place] [address], [place] [address] 26 Aug, 2012 [facility] [address] [id number] [address] [place] [address], [place] [address] Aug, [facility] [address] [id number] [address] [place] [address], [place] [address] 18 Aug, 2012 [facility] [address] [id number] [address] [place] [address], [place] [address] 15 Aug, 2012 [facility] [address] [id number] [address] [place] [address], [place] [address] 14 Aug, 2012 [facility] [address] [id number] [address] [place] [address], [place] [address] 12 Aug, 2012 [facility] [address] [id number] [address] [place] [address], [place] [address] 14 Sep, 2011 [facility] [address] [id number] [address] [place] [address] Jul, [facility] [address] [id number] [address] [place] [address] Jul, [facility] [address] [id number] [address] [place] [address] Jun, [facility] [address] [id number] [address] [place] [address] Jun, [facility] [address] [id number] [address] [place] [address] Jun, [facility] [address] [id number] [address] [place] [address] May, [facility] [address] [id number] [address] [place] [address] May, [facility] [address] [id number] [address] [place] [address] May, [facility] [address] [id number] [address] [place] [address] Apr, [facility] [address] [id number] [address] [place] [address] Apr, [facility] [address] [id number] [address] [place] [address] Apr, [facility] [address] [id number] [address] [place] [address] Feb, [facility] [address] [id number] [address] [place] [address] Jan, [facility] [address] [id number] [address] [place] [address] Dec, IMMUNIZATIONS No Known Immunizations SOCIAL HISTORY Never Assessed REASON FOR VISIT right knee pain since yesterday. 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 denies any injury. [email or web address] PLAN OF CARE Activity Details Follow Up prn Reason: VITAL SIGNS Height 64 in 2017-04-01 Weight 185.6 lbs 2017-04-01 Temperature 97.8 degrees Fahrenheit 2017-04-01 Heart Rate 74 bpm 2017-04-01 Respiratory Rate 20 2017-04-01 BMI 31.85 kg/m2 2017-04-01 Blood pressure systolic 116 mmHg 2017-04-01 Blood pressure diastolic 70 mmHg 2017-04-01 MEDICATIONS No Known Medications RESULTS No Results PROCEDURES No Known procedures INSTRUCTIONS MEDICATIONS ADMINISTERED No Known Medications MEDICAL (GENERAL) HISTORY Type Description Date Medical History herpes Hospitalization History Childbirth only
== END 2019-07-02 16:21 | disposition home or self-care (01) ==
LOC: EDUNIT# 13:48 → ER 13:50
DX: J06.9 Acute upper respiratory infection, unspecified (principal); Z88.5 Allergy status to narcotic agent
CPT/HCPCS: 71046

== ENCOUNTER 2021-05-10 21:54 | Emergency (ER) | payer SELFPAY ==
[~2021-05-10] VITALS: Ht 63 cm; Wt 87.1 kg
[~2021-05-10 21:54] MED LIST changes: +AMOX400S9 PO
--- NOTE | 2021-05-10 22:37 | ED Lower Extremity ---
General Chief Complaint: Lower Extremity Stated Complaint: L KNEE PAIN Nursing Triage Note: Pt arrives via POV from home with c/o left knee pain; onset 10 days ago. Pt reports she twisted her knee ten days ago, was seen at [facility] et d/c. Pt reports she has been using ice et tylenol, reports the pain has increased since then et has had more difficulty ambulating. Reports tenderness on palpation, no obvious deformity or swelling noted during triage. Source: patient Exam Limitations: no limitations History of Present Illness Date Seen by Provider: May 10, 2021 Time Seen by Provider: 22:32 Initial Comments To ER by private vehicle with reports of left knee pain that began 10 days ago. This began when she twisted with all of her weight on her left leg. She saw [facility] who diagnosed her with a knee sprain she has been icing it and using it as per her usual. She has persistent pain. Onset: just prior to arrival Severity: moderate Pain/Injury Location: left knee Method of Injury: twisted Modifying Factors: Worse With Movement Allergies and Home Medications Allergies Coded Allergies: codeine (Unverified Allergy, Unknown, 07/08/11) Patient Home Medication List Home Medication List Reviewed: Yes Amoxicillin (Amoxicillin) 400 Mg/5 Ml Susp.recon, 1,000 MG PO BID Prescribed by: JOSE IRBY on 07/02/19 1605 Ferrous Sulfate (Ferrous Sulfate) 325 Mg Tablet, 325 MG PO TID, (Reported) Entered as Reported by: REBECCA MACEDO on 07/08/11 0857 Hydrocodone Bit/Acetaminophen (Lortab 7.5-325 Mg/15 Ml Udc) 15 Ml Solution, 7.5 ML PO Q4H PRN for PAIN-SEVERE (8-10) Prescribed by: NESTOR BULL on 05/10/21 2239 Hydrocodone/Acetaminophen (Hydrocodone-Acetamin 5-325 mg) 1 Each Tablet, 1 TAB PO Q4H PRN for PAIN-MODERATE (5-7) Prescribed by: NESTOR BULL on 05/11/21 1105 Last Action: New Order Ibuprofen (Motrin Tablet) 600 Mg Tab, 600 MG PO Q6H Prescribed by: YOEL CATALAN on 07/26/14 0607 Ibuprofen (Ibuprofen) 600 Mg Tablet, 600 MG PO Q6H PRN for PAIN-MILD Prescribed by: NESTOR BULL on 05/10/21 2238 Medroxyprogesterone Acet (Depo-Provera) 150 Mg/Ml Disp.syrin, 150 MG IM Q 90DAYS, (Reported) Entered as Reported by: LIZANDRO COLUNGA on 09/12/14 1340 Multivitamins W-Iron (Flintstones With Iron) 1 Tab.chew Tab.chew, 2 TAB.CHEW PO DAILY, (Reported) Entered as Reported by: REBECCA MACEDO on 07/08/11 0857 Review of Systems Constitutional: see HPI EENTM: see HPI Respiratory: no symptoms reported Cardiovascular: no symptoms reported Genitourinary: no symptoms reported Musculoskeletal: see HPI Skin: no symptoms reported Psychiatric/Neurological: No Symptoms Reported Past Llwngmc-Okmfat-Qrpwfu Hx Patient Social History Tobacco Use?: No Use of E-Cig and/or Vaping dev: No Substance use?: No Alcohol Use?: No Pt feels they are or have been: No Immunizations Up To Date Tetanus Booster (TDap): Unknown PED Vaccines UTD: Yes Seasonal Allergies Seasonal Allergies: No Past Medical History Surgeries: No Respiratory: No Cardiac: No Neurological: No Reproductive Disorders: Yes Female Reproductive Disorders: Denies Sexually Transmitted Disease: Yes (herpes) HIV/AIDS: No Gastrointestinal: No Musculoskeletal: No Endocrine: No Cancer: No Psychosocial: No Integumentary: No Blood Disorders: No Family Medical History Patient reports no known family medical history. No Pertinent Family Hx Physical Exam Vital Signs Vital Signs - First Documented 05/10/21 22:24 Temp 36.8 Pulse 79 Resp 18 B/P (MAP) 124/77 (93) Pulse Ox 100 O2 Delivery Room Air Capillary Refill : Less Than 3 Seconds Height, Weight, BMI Height: 5'3" Weight: 159lbs. 6.0oz. 72.409863bh; 219.00 BMI Method: General Appearance: WD/WN, no apparent distress HEENT: PERRL/EOMI, normal ENT inspection Neck: non-tender, full range of motion Respiratory: no respiratory distress, no accessory muscle use Hips: bilateral hip non-tender, bilateral hip normal inspection, bilateral hip normal range of motion Legs: bilateral leg non-tender, bilateral leg normal inspection, bilateral leg normal range of motion Knees: left knee pain, left knee soft tissue tenderness, left knee other (Pain across the medial joint line) Ankles: bilateral ankle non-tender, bilateral ankle normal inspection, sonia ateral ankle normal range of motion Feet: bilateral foot non-tender, bilateral foot normal inspection, bilateral foot normal range of motion Neurologic/Psychiatric: alert, normal mood/affect, oriented x 3 Skin: normal color, warm/dry Progress/Results/Core Measures Results/Orders My Orders Orders - NESTOR BULL APRN Knee, Left, 3 Views (05/10/21 22:30) Rx-Hydrocodone/Apap 5-325 Mg (Rx-Vicodin (05/10/21 22:30) Ibuprofen Tablet (Motrin Tablet) (05/10/21 22:45) Vital Signs/I&O 05/10/21 05/10/21 22:24 23:25 Temp 36.8 36.8 Pulse 79 79 Resp 18 18 B/P (MAP) 124/77 (93) 124/77 Pulse Ox 100 100 O2 Delivery Room Air Room Air Blood Pressure Mean: 93 Departure Impression Primary Impression: Injury of meniscus of left knee Disposition: HOME, SELF-CARE Condition: Stable Departure-Patient Inst. Decision time for Depature: 22:33 Referrals: [facility] (PCP/Family) Primary Care Physician Patient Instructions: Meniscus Tear ED Add. Discharge Instructions: 1. Return to ER for any concerns 2. Follow-up with your doctor next week to discuss an MRI of the knee. 3. Pain medication as directed. All discharge instructions reviewed with patient and/or family. Voiced understanding. Scripts Hydrocodone/Acetaminophen (Hydrocodone-Acetamin 5-325 mg) 1 Each Tablet 1 TAB PO Q4H PRN for PAIN-MODERATE (5-7), #10 TAB Prov: NESTOR BULL APRN 05/11/21 Hydrocodone Bit/Acetaminophen (LORTAB 7.5-325 MG/15 ML UDC) 15 Ml Solution 7.5 ML PO Q4H PRN for PAIN-SEVERE (8-10), #75 ML Prov: NESTOR BULL APRN 05/10/21 Ibuprofen (Ibuprofen) 600 Mg Tablet 600 MG PO Q6H PRN for PAIN-MILD, #30 TAB Prov: NESTOR BULL APRN 05/10/21 NESTOR BULL APRN May 10, 2021 22:37
[2021-05-10] MEDS ORDERED: HYDR15SO6 PO (22:38)
[2021-05-10] MEDS ORDERED: IBUP-1773 PO (22:38)
[2021-05-10] MEDS ORDERED: IBUPROFEN 800 MG (MOTRIN) TAB PO ONE (22:45)
--- NOTE | 2021-05-10 23:22 | Diagnostic Imaging Report ---
EXAMINATION: Left knee at 1040 PM INDICATION: Knee pain Three views were obtained. There are no prior studies available for comparison. There is no fracture, dislocation or acute bony abnormality evident. The knee joint is fairly well maintained. The soft tissues are unremarkable. IMPRESSION: There is no evidence for an acute bony abnormality. Dictated by: Dictated on workstation # [id number]
[2021-05-10 23:25] VITALS: BP 124/77
[2021-05-11] MEDS ORDERED: ACHD5005 PO (11:05)
== END 2021-05-10 23:26 | disposition home or self-care (01) ==
LOC: EDUNIT# 21:54 → ER 21:56
DX: S83.8X2A Sprain of other specified parts of left knee, initial encounter (principal); X50.0XXA Overexertion from strenuous movement or load, initial encounter
CPT/HCPCS: 73562

== ENCOUNTER 2021-05-21 23:00 | Emergency (ER) | payer SELFPAY ==
[~2021-05-21] VITALS: Ht 160 cm; Wt 77.3 kg
[~2021-05-21 23:00] MED LIST changes: +ACHD5005 PO; +HYDR15SO6 PO; +IBUP-1773 PO
[2021-05-22] MEDS ORDERED: guaiFENesin/DM (ROBITUSSIN DM) 10 ML UDC PO STA (00:25)
--- NOTE | 2021-05-22 00:34 | ED Cough/URI ---
General Chief Complaint: Cough/Cold/Flu Symptoms Stated Complaint: COUGH,SORE THROAT Nursing Triage Note: Pt ambulatory into ER with complaint of Cough/Sore Throat x3 weeks. Pt denies other complaints. States that she did get dizzy while having a coughing fit while taking a hot shower. Pt states shes been coughing up clear phlegm. (LYNDSAY GERARDO) History of Present Illness Date Seen by Provider: May 22, 2021 Time Seen by Provider: 00:27 Initial Comments Patient is a 31 year old female who presents to the ER with a cough that has been ongoing since 04/29/2021. Patient does not remember and inciting event or illness that started the cough. The cough is dry and "tickles the back of her throat". The patient had two episodes of lightheadedness/dizziness after a coughing episode, one on wednesday and one today that prompted her to come in. The patient has tried allergy medication to make it better. Leaning to the right makes the cough better. Lying flat makes it worse. The patient rates the cough a 7/10 at worst and a 4/10 baseline. Patient denies heartburn, n/v, fever, SOB (except during coughing fit), headache, constipation, diarrhea, dysuria. Patient states she had a case of bronchitis two years ago and this feels similar to that. Timing/Duration: getting worse Severity/Quality: dry cough Prior Episodes/Possible Cause: occasional episodes (bronchitis two years ago) Modifying Factors: Improves With Lying Down Associated Symptoms: dizziness, lightheadedness, sore throat (from coughing ) (ERIC GERARDOON) Allergies and Home Medications Allergies Coded Allergies: codeine (Unverified Allergy, Unknown, 07/08/11) Patient Home Medication List Home Medication List Reviewed: Yes (TAMIA JEAN MD) Amoxicillin (Amoxicillin) 400 Mg/5 Ml Susp.recon, 1,000 MG PO BID Prescribed by: JOSE IRBY on 07/02/19 1605 Ferrous Sulfate (Ferrous Sulfate) 325 Mg Tablet, 325 MG PO TID, (Reported) Entered as Reported by: REBECCA MACEDO on 07/08/11 0857 Hydrocodone Bit/Acetaminophen (Lortab 7.5-325 Mg/15 Ml Udc) 15 Ml Solution, 7.5 ML PO Q4H PRN for PAIN-SEVERE (8-10) Prescribed by: NESTOR BULL on 05/10/21 2239 Hydrocodone/Acetaminophen (Hydrocodone-Acetamin 5-325 mg) 1 Each Tablet, 1 TAB PO Q4H PRN for PAIN-MODERATE (5-7) Prescribed by: NESTOR BULL on 05/11/21 1105 Ibuprofen (Motrin Tablet) 600 Mg Tab, 600 MG PO Q6H Prescribed by: YOEL CATALAN on 07/26/14 0607 Ibuprofen (Ibuprofen) 600 Mg Tablet, 600 MG PO Q6H PRN for PAIN-MILD Prescribed by: NESTOR BULL on 05/10/21 2238 Medroxyprogesterone Acet (Depo-Provera) 150 Mg/Ml Disp.syrin, 150 MG IM Q 90DAYS, (Reported) Entered as Reported by: LIZANDRO COLUNGA on 09/12/14 1340 Multivitamins W-Iron (Flintstones With Iron) 1 Tab.chew Tab.chew, 2 TAB.CHEW PO DAILY, (Reported) Entered as Reported by: REBECCA MACEDO on 07/08/11 0857 Review of Systems Review of Systems Constitutional: No chills; dizziness, fever (states 99.6 last night, normal temp in ER) EENTM: no symptoms reported Respiratory: cough; No phlegm Cardiovascular: no symptoms reported Gastrointestinal: No constipation, No diarrhea, No heartburn, No nausea, No vomiting Genitourinary: No decreased output, No dysuria Musculoskeletal: no symptoms reported Skin: no symptoms reported Psychiatric/Neurological: No Symptoms Reported Hematologic/Lymphatic: No Symptoms Reported Immunological/Allergic: no symptoms reported (LYNDSAY GERARDO) Past Wuoxytw-Oqlnal-Uvrynl Hx Patient Social History Tobacco Use?: No Use of E-Cig and/or Vaping dev: No Substance use?: No Alcohol Use?: No Pt feels they are or have been: No (LYNDSAY GERARDO) Immunizations Up To Date Tetanus Booster (TDap): Unknown PED Vaccines UTD: Yes Influenza Vaccine Up-to-Date: No; Not Current (LYNDSAY GERARDO) Seasonal Allergies Seasonal Allergies: No (LYNDSAY GERARDO) Past Medical History Surgeries: No Respiratory: No Cardiac: No Neurological: No Last Menstrual Period: Apr 29, 2021 Reproductive Disorders: Yes Female Reproductive Disorders: Denies Sexually Transmitted Disease: Yes (herpes) HIV/AIDS: No Gastrointestinal: No Musculoskeletal: No Endocrine: No Cancer: No Psychosocial: No Integumentary: No Blood Disorders: No (LYNDSAY GERARDO) Family Medical History Patient reports no known family medical history. No Pertinent Family Hx (LYNDSAY GERARDO) Physical Exam Vital Signs - First Documented 05/21/21 23:50 Temp 36.6 Pulse 104 Resp 18 B/P (MAP) 133/73 (93) Pulse Ox 99 O2 Delivery Room Air (TAMIA JEAN MD) Capillary Refill : Less Than 3 Seconds (LYNDSAY GERARDO) Height: 5'3" Weight: 159lbs. 6.0oz. [id number]; 30.00 BMI Method: General Appearance: WD/WN, no apparent distress Neck: non-tender, normal inspection Respiratory: chest non-tender, lungs clear, normal breath sounds, no respiratory distress, no accessory muscle use Cardiovascular: regular rate, rhythm, no edema, no murmur Gastrointestinal: non tender, soft, no organomegaly, no pulsatile mass Extremities: no pedal edema, no calf tenderness, normal capillary refill Neurologic/Psychiatric: alert, normal mood/affect, oriented x 3 Skin: normal color, warm/dry Lymphatic: no adenopathy (LYNDSAY GERARDO) Progress/Results/Core Measures Suspected Sepsis SIRS Temperature: Pulse: 104 Respiratory Rate: 18 Blood Pressure 133 /73 Mean: 93 (LYNDSAY GERARDO) Results/Orders Lab Results Laboratory Tests Test 05/21/21 23:58 Range/Units Influenza Type A (RT-PCR) Not Detected Not Detecte Influenza Type B (RT-PCR) Not Detected Not Detecte SARS-CoV-2 RNA (RT-PCR) Not Detected Not Detecte (TAMIA JEAN MD) My Orders Orders - TAMIA JEAN MD Guaifenesin/Dm Syrup (Robitussin Dm Syru (05/22/21 00:25) Covid 19 Inhouse Test (05/21/21 23:58) Influenza A And B By Pcr (05/21/21 23:58) (TAMIA JEAN MD) Vital Signs/I&O 05/21/21 05/22/21 23:50 00:50 Temp 36.6 36.6 Pulse 104 98 Resp 18 16 B/P (MAP) 133/73 (93) 106/57 Pulse Ox 99 97 O2 Delivery Room Air Room Air (TAMIA JEAN MD) Vital Signs/I&O Capillary Refill : Less Than 3 Seconds (ERIC GERARDOON) Blood Pressure Mean: 93 Progress Note : Time: 00:48 Progress Note 31-year-old with nonproductive cough x3 weeks. No [id number]-dec-uxjbtad remedies or treatments have been attempted prior to her visit today other than some "allergy medication" a couple of days ago. No concomitant fevers, productive cough, shortness of breath. No recent prolonged immobility or history of blood clots. No abdominal pain, nausea or vomiting. Patient treated with Robitussin here in the department. Covid and flu are negative. No clinical indications for chest x-ray. Patient's vital signs are stable. Recommend [id number] treatment at home with return precautions. Patient verbalized understanding, all questions are sought and answered. Patient is stable for discharge (TAMIA JEAN MD) Departure Impression Primary Impression: Bronchitis Disposition: 01 HOME, SELF-CARE Condition: Stable Departure-Patient Inst. Decision time for Depature: 00:39 (LYNDSAY GERARDO) Referrals: [facility] (PCP/Family) Primary Care Physician Patient Instructions: Acute Bronchitis, Adult (DC) Add. Discharge Instructions: Begin taking over the counter Robitussin containing cough medication. Take per package instruction. If cough not improving after 48 hours with robitussin, consider taking over the counter Pepcid per package instructions If cough still not improving after one week, follow up with primary care provider at [facility]. Return to emergency room if you develop shortness of breath, fever, or p roductive cough Work/School Note: Work Release Form Date Seen in the Emergency Department: May 22, 2021 Return to Work: May 23, 2021 Verification and Attestation of Medical Student E/M Service A medical student performed and documented this service in my presence. I reviewed and verified all information documented by the medical student and made modifications to such information, when appropriate. I personally performed the physical exam and medical decision making. Tamia Jean, May 22, 2021,00:49 (TAMIA JEAN MD) LYNDSAY GERARDO May 22, 2021 00:34 TAMIA JEAN MD May 22, 2021 00:50
[2021-05-22 00:50] VITALS: BP 106/57
== END 2021-05-22 00:50 | disposition home or self-care (01) ==
LOC: ER 23:00 → EDUNIT# 23:47 → ER 05-22 00:50
DX: J40 Bronchitis, not specified as acute or chronic (principal); Z20.822 Contact with and (suspected) exposure to COVID-19
CPT/HCPCS: 87636; 99283